=== PATIENT | female | born 1975 ===

== ENCOUNTER 2021-03-12 13:02 | Outpatient (REF) | payer OTHER, SELFPAY ==
--- NOTE | ~2021-03-12 | MM_ITS ---
EXAMINATION: MM SCREENING DIGITAL BREAST TOMOSYNTHESIS, BILATERAL CLINICAL INFORMATION: Screening. Asymptomatic. The lifetime risk of breast cancer based on the Tyrer-Cuzick Model is 8.4%. COMPARISON: Mammography: April 24, 2019 and studies dating back to January 13, 2017 TECHNIQUE: Digital breast tomosynthesis is performed in both the craniocaudal and mediolateral oblique views along with computer-aided detection (CAD). Synthesized 2D images are generated from the tomosynthesis. FINDINGS: The breasts are almost entirely fatty (ACR BI-RADS breast composition Category a). There are no significant masses, abnormal calcifications, or other abnormalities. MM/MM tomosynthesis screening BI IMPRESSION: There are no significant changes from prior study. ASSESSMENT: BI-RADS 1: Negative RECOMMENDATION: Routine annual mammography screening. This patient's information was entered into a reminder system with a target due date for their next mammogram.
== END 2021-03-12 13:03 | disposition home or self-care (01) ==
LOC: HO.MAMMO 13:02
PROVIDERS: Visit Provider Internal Medicine
DX: Z12.31 Encounter for screening mammogram for malignant neoplasm of breast (principal)
CPT/HCPCS: 77063; 77067

== ENCOUNTER → 2021-06-02 16:28 | Outpatient (BNVA) | payer OTHER, SELFPAY | PROVIDERS: PCP Internal Medicine; Referring Provider Internal Medicine; Visit Provider Physician Assistant Surgical ==

== ENCOUNTER → 2021-06-04 16:10 | Outpatient (BNVA) | payer OTHER, SELFPAY | PROVIDERS: PCP Internal Medicine; Visit Provider Surgery ==

== ENCOUNTER → 2021-06-17 07:41 | Outpatient (BNVA) | payer OTHER, SELFPAY | PROVIDERS: PCP Internal Medicine; Visit Provider Surgery ==

== ENCOUNTER → 2021-06-18 07:08 | Outpatient (BNVA) | payer OTHER, SELFPAY | PROVIDERS: PCP Internal Medicine; Visit Provider Surgery ==

== ENCOUNTER 2021-06-22 07:35 | Outpatient (REF) | payer OTHER, SELFPAY ==
--- NOTE | ~2021-06-22 | XR_ITS ---
EXAMINATION: XR CHEST CLINICAL INFORMATION: Obesity. COMPARISON: Most recent chest radiograph dated 05/19/2016. TECHNIQUE: 2 views of the chest were obtained. FINDINGS: The lungs are clear. The cardiomediastinal silhouette is normal in size. There is no pleural effusion or pneumothorax. No acute osseous abnormality. XR/XR chest 2V IMPRESSION: No acute cardiopulmonary findings.
--- NOTE | 2021-06-22 07:42 | ECG_ITS ---
Test Reason : e66.01 Blood Pressure : / mmHG Vent. Rate : 074 BPM Atrial Rate : 074 BPM P-R Int : 162 ms QRS Dur : 074 ms QT Int : 380 ms P-R-T Axes : 032 -06 018 degrees QTc Int : 421 ms Normal sinus rhythm Low voltage QRS Cannot rule out Anterior infarct (cited on or before 11-JAN-2015) Abnormal ECG When compared with ECG of 15-FEB-2018 17:42, Questionable change in initial forces of Lateral leads Referred By: Hipolito Valdez Electronically Signed By:JUSTIN KIMBLE
[2021-06-22 08:06] LABS: MANUAL DIFF FLAG NO
[2021-06-22 08:13] LABS: Basophils Percent Auto 0.3 % (0-2); Eosinophils Absolute Auto 0.1 X10*3/uL (0.0-0.4); Eosinophils Percent Auto 2.9 % (0-4); Hematocrit 37.3 % (37-47); Hemoglobin 12.5 g/dl (12.0-16.0); Imm Gran Abs Auto 0.01 X10*3/uL (0.00-0.03); Imm Gran Pct Auto 0.3 % (0.0-0.4); Lymphocytes Absolute Auto 1.5 X10*3/uL (1.2-4.9); Lymphocytes Percent Auto 39.2 % (20-40); Mean Corpuscular HGB Conc 33.5 g/dl (31.0-35.0); Mean Corpuscular Hemoglobin 29.6 pg (27.0-33.0); Mean Corpuscular Volume 88.2 fL (80-98); Mean Platelet Volume 9.3 fL (9.4-12.3); Monocytes Absolute Auto 0.4 X10*3/uL (0.1-1.2); Monocytes Percent Auto 9.1 % (2-11); Neutrophils Absolute Auto 1.9 X10*3/uL (2.0-8.3); Neutrophils Percent Auto 48.2 % (45-73); Platelet Count 294 X10*3/uL (160-400); Red Blood Count 4.23 X10*6/uL (4.20-5.50); Red Cell Distribution Width 12.9 % (11.0-16.0); White Blood Count 3.8 X10*3/uL (4.8-10.8)
[2021-06-22 08:27] LABS: Estimated Average Glucose 117 mg/dL; Hemoglobin A1c % 5.7 %
[2021-06-22 08:43] LABS: Alanine Aminotransferase 21 U/L (0-31); Albumin Level 3.9 g/dL (3.5-5.0); Alkaline Phosphatase 104 U/L (39-117); Anion Gap 13 (12-20); Aspartate Amino Transferase 19 U/L (5-31); Bilirubin Total 0.4 mg/dL (0.0-1.0); Blood Urea Nitrogen 10 mg/dL (9-16); C Reactive Protein 0.81 mg/dL (< or = 0.50); Calcium 8.8 mg/dL (8.4-10.2); Carbon Dioxide 25 mmol/L (22-29); Chloride 106 mmol/L (96-108); Cholesterol 125 mg/dL; Estimated Glomerular Filt Rate > 60; Glucose Random 107 mg/dL (60-115); HDL Cholesterol 25 mg/dL; Iron 75 mcg/dL (30-160); LDL Cholesterol Calculated 91 mg/dl; Percent Iron Saturation 30 % (15-50); Potassium 4.4 mmol/L (3.3-5.1); Sodium 140 mmol/L (135-145); Total Iron Binding Capacity 250 mcg/dL (228-428); Total Protein 6.7 g/dL (6.5-8.0); Triglycerides 49 mg/dL; Unsaturated Iron Binding 175 ug/dL
[2021-06-22 09:08] LABS: TSH reflex Free T4 1.16 uIU/mL (0.32-4.0); Vitamin D 25-OH Total 26.8 ng/mL (>30)
[2021-06-22 09:11] LABS: Folate 17.3 ng/mL (> or = 4.0); Vitamin B12 618 pg/mL (200-900)
[2021-06-22 10:23] LABS: Ferritin 139 ng/mL (10-250)
[2021-06-23 10:21] LABS: Calcium (PTHI) 8.7 mg/dL (8.6-10.2); PTHI 32 pg/mL (14-64)
[2021-06-23 11:03] LABS: H Pylori Breath Test Positive (Negative)
[2021-06-25 07:41] LABS: Zinc 81 mcg/dL (60-130)
[2021-06-26 13:10] LABS: Vitamin B1 12 nmol/L (8-30)
[2021-06-28 01:12] LABS: Vitamin A 34 mcg/dL (38-98)
== END 2021-06-22 07:36 | disposition home or self-care (01) ==
LOC: HO.LAB 07:35
PROVIDERS: PCP Internal Medicine; Visit Provider Surgery
DX: Z01.818 Encounter for other preprocedural examination (principal); E66.01 Morbid (severe) obesity due to excess calories
CPT/HCPCS: 36415; 71046; 80053; 80061; 82306; 82607; 82728; 82746; 83013; 83036; 83540; 83970; 84425; 84443; 84590; 84630; 85025; 86140; 93005

== ENCOUNTER → 2021-07-22 08:03 | Outpatient (BNVA) | payer OTHER, SELFPAY | PROVIDERS: PCP Internal Medicine; Visit Provider Dietitian, Registered | DX: E66.9 Obesity, unspecified (principal) | CPT/HCPCS: 97802 ==

== ENCOUNTER → 2021-07-23 08:05 | Outpatient (BNVA) | payer OTHER, SELFPAY | PROVIDERS: PCP Internal Medicine; Visit Provider Surgery ==

== ENCOUNTER 2021-08-02 08:00 | Outpatient (REF) | payer OTHER, SELFPAY ==
--- NOTE | ~2021-08-02 | US_ITS ---
EXAMINATION: US COMPLETE ABDOMEN WITH LIVER ELASTOGRAPHY CLINICAL INFORMATION: Obesity COMPARISON: None. TECHNIQUE: Real-time imaging of the abdominal viscera. Noninvasive ultrasound liver fibrosis assessment is performed using Chirag ElastPQ point quantification shear wave elastography (pSWE) with a C5-2 MHz transducer. Multiple elastography samples are obtained. FINDINGS: PANCREAS: Normal. The visualized pancreatic head and body are normal in appearance. The remainder of the pancreas is obscured from visualization by the overlying bowel gas. ABDOMINAL AORTA: The proximal, middle, and distal aortic segments are normal in caliber. INFERIOR VENA CAVA: Visualized portions are normal. LIVER: Liver echotexture is slightly increased. The liver demonstrates normal size and contour. No focal lesion or intrahepatic biliary duct dilatation. The right lobe measures 17 cm in length. The left lobe measures 11 cm in length. Portal flow is normal/hepatopedal Shear wave liver elastography median stiffness is 1.8 m/s (reference: normal median stiffness is 1.3 m/s or less). IQR/median stiffness to assess sampling precision is 0.15 (reference: good quality data set is IQR/median stiffness of 0.15 or less). GALLBLADDER: Normal. The gallbladder is physiologically distended without evidence of stones, sludge, polyps, wall thickening or pericholecystic fluid. COMMON BILE DUCT: Normal in caliber measuring 0.2 cm in diameter. RIGHT KIDNEY: Normal. No hydronephrosis. No renal calculi or focal parenchymal lesions. The kidney measures 10 cm in maximum dimension. LEFT KIDNEY: Normal. No hydronephrosis. No renal calculi or focal parenchymal lesions. The kidney measures 11 cm in maximum dimension. SPLEEN: Normal. The spleen measures 10 cm in maximum dimension. FREE FLUID: None. US/US abdomen comp w elastography IMPRESSION: 1. Impression: Echogenic liver probably representing fatty infiltration. 2. Liver elastography: Adequate liver sampling. Slightly elevated stiffness suggestive of compensated advanced chronic liver disease but need further test for confirmation. REFERENCE: Society of Radiologists in Ultrasound Liver Stiffness Thresholds (2020): LIVER STIFFNESS THRESHOLDS: *Liver Stiffness equal or less than 1.3 m/s: High probability of being normal. *Liver Stiffness less than 1.7 m/s: In the absence of other known clinical signs, rules out compensated advanced chronic liver disease. *Liver Stiffness 1.7-2.1 m/s: Suggestive of compensated advanced chronic liver disease but need further test for confirmation. *Liver Stiffness over 2.1 m/s: Rules in compensated advanced chronic liver disease. *Liver Stiffness over 2.4 m/s: Suggestive of clinically significant portal hypertension. QUALITY OF DATA SET: *IQR/Median value equal or less than 0.15 implies a quality data set. *IQR/Median value over 0.15 implies a poor quality data set. SIGNIFICANT CHANGE FROM PRIOR EXAM: Significant change if liver stiffness measurement is 10% or greater from prior exam. OTHER CONSIDERATIONS: The stage of liver fibrosis may be overestimated in the setting of acute hepatitis, liver inflammation, elevated liver function tests, hepatic vascular congestion, obstructive cholestasis, non-fasting state, and infiltrative diseases such as amyloidosis and lymphoma. In some patients with NAFLD, the liver stiffness thresholds for compensated advanced chronic liver disease may be lower. In causes other than viral hepatitis and NAFLD, liver stiffness thresholds are not well established.
--- NOTE | ~2021-08-02 | FL_ITS ---
EXAMINATION: XR GI SERIES CLINICAL INFORMATION: Morbid/severe obesity due to excess calories. COMPARISON: None. TECHNIQUE: Routine upper GI air-contrast series was performed in upright and lying positions. FINDINGS: Following oral administration of thick barium and effervescent granules, there is normal propagation of bolus from the oral cavity through the pharynx and esophagus and into the stomach without any evidence of obstruction, narrowing or stricture. The course, caliber and peristalsis of the stomach and the duodenum are normal. The mucosal pattern of the esophagus, stomach and the duodenum is normal. FLUOROSCOPY TIME: 1.8 minutes. DOSE AREA PRODUCT: 32.123 uGy-m2 (microgray-meter squared). FL/FL upper GI series IMPRESSION: Unremarkable upper GI air-contrast study.
--- NOTE | 2021-08-02 08:17 | CA_ITS ---
Acquisition Time: 2021-08-02 08:35:43 Total Exercise Time: 00:06:17 Test Indications: PREOP, ABN EKG Medications: SEE CHART Protocol: MAX Max HR: 160 BPM 90% of Pred: 176 BPM Max BP: 140/070 mmHG Max Work Load: 7.4 METS Exercise stress test with exercise 6 min 17 sec of Max protocol, without anginal symptoms, without arrythmia, with normotensive response to exercise, without EKG changes meeting criteria for ischemia. Test reviewed with Dr Rizvi. Referred By: Hipolito Valdez Overread By: MARY URRUTIA
--- NOTE | 2021-08-02 08:17 | CA_ITS ---
Transthoracic Echocardiogram Patient (Last, First, Middle): Brooks Hanson, Gender: Female Date of : 1975 Age: 45 Procedure Date: 08/02/2021 Procedure Type: Transthoracic Echocardiogram Location: OP Height: 165.1 cm Weight: 100.7 kg BSA: 2.07 m2 Heart Rate: bpm BP: 128 / 70 mmHg Tax Assistant: Referring MD: Hipolito Valdez MD Symptoms: R94.31 - Abnormal electrocardiogram [ECG] [EKG] PRE OP Study Quality: Good ECG Rhythm: Sinus Conclusions: - The left ventricular systolic function is normal. The visually estimated ejection fraction is between 60-65%. - No obvious valvular pathology seen on this study. Findings Left Ventricle Normal left ventricular cavity size. There is mildly increased left ventricular wall thickness. The left ventricular systolic function is normal. The visually estimated ejection fraction is between 60-65%. There is no evidence of regional wall motion abnormalities. Diastolic function is normal for age. Right Ventricle Normal right ventricular cavity size and systolic function. Atria Both atria are normal in size. Aortic Valve There is a normal trileaflet aortic valve. There is no aortic valve stenosis. There is no aortic valve regurgitation. Mitral Valve The mitral valve appears normal. There is trace mitral valve regurgitation. There is no mitral valve stenosis. Pulmonic Valve The pulmonic valve was not well visualized. There is trace pulmonic valve regurgitation. Tricuspid Valve Normal tricuspid valve structure. There is trace tricuspid valve regurgitation. The pulmonary artery systolic pressure is normal. Great Vessels The aortic annulus, sinuses of valsalva, and asc aorta are normal in size. Venous The inferior vena cava is normal in size and collapses greater than 50% with inspiration. Pericardium/Pleural There is no evidence of pericardial effusion. Prior Study Comparison No prior study available for comparison. Recommendations, Care & Conclusions No obvious valvular pathology seen on this study. Measurements 2D Linear Measurements IVSd: 1.15 0.6-0.9/0.6-1.0 cm LVIDd: 4.41 3.9-5.3/4.2-5.9 cm LVIDd Index: 2.13 2.4-3.2/2.2-3.1 cm/m2 LVIDs: 2.78 2.0-3.6 cm LVPWd: 1.12 0.7-1.1 cm Ao Root: 2.50 2.1-3.5 cm LA Diam: 3.40 2.7-3.8/3.0-4.0 cm LAIDs Index: 1.64 1.5-2.3 cm/m2 LV Mass: 220.80 67-162/88-224 g LV Mass Index: 106.67 43-95/49-115 g/m2 LVOT Diam: 2.00 3.0+(-)1.3 cm Mitral Valve MV Pk E: 0.62 MV PK A: 0.54 MV Decel Time: 202.00 E/A: 1.10 E'Lateral: 13.80 E'Medial: 9.25 E/E' Med: 6.70 E/E' Lat: 4.50 PHT: 59.00 MVA PHT: 3.73 Decel [place]: 3.06 Aortic Valve AoV Pk Miles: 1.35 AoV Mn Miles: 1.00 AoV VTI: 0.30 AoV Pk Grad: 7.00 Aov Mn Grad: 4.00 STEFFI Cont.VTI: 2.45 LVOT LVOT Pk Miles: 1.07 LVOT Mn Miles: 0.68 LVOT VTI: 0.24 LVOT Pk Grad: 5.00 LVOT Mn Grad: 2.00 LVOT Diam: 2.00 LVOT Area: 3.14 Diastolic Function MV Pk E: 0.62 MV Pk A: 0.54 E/A: 1.10 E'Medial: 9.25 E/E' Med: 6.70 E' Laterial: 13.80 E/E' Lat: 4.50 Right Ventricle TAPSE (mm): 19.00 TVS' Miles: 9.00 Tricuspid Valve RA Press: 8.00 Great Vessels Aorta Ao Root-2D: 2.50 2.0-3.7 cm Ao Asc: 2.60 2.1-3.4 cm Ao Arch: 2.60 Pulmonary Valve PV Pk Miles: 1.20 Peak PV Grad: 6.00 Updated in Other Vendor System with Status of Final Fortino Rizvi MD electronically signed on 08/02/2021 12:53:55 PM with status of Final
== END 2021-08-02 08:01 | disposition home or self-care (01) ==
LOC: HO.US 08:00
PROVIDERS: PCP Internal Medicine; Visit Provider Surgery
DX: Z01.818 Encounter for other preprocedural examination (principal); E66.01 Morbid (severe) obesity due to excess calories; R06.02 Shortness of breath; I10 Essential (primary) hypertension; R94.31 Abnormal electrocardiogram [ECG] [EKG]
CPT/HCPCS: 74240; 76705; 76981; 93017; 93306

== ENCOUNTER 2021-08-03 16:56 | Outpatient (REF) | payer OTHER, SELFPAY ==
[2021-08-04 12:21] LABS: H Pylori Breath Test Negative (Negative)
== END 2021-08-03 16:57 | disposition home or self-care (01) ==
LOC: HO.LNP 16:56
PROVIDERS: Visit Provider Physician Assistant Surgical
DX: Z01.818 Encounter for other preprocedural examination (principal)
CPT/HCPCS: 83013

== ENCOUNTER → 2021-08-20 07:26 | Outpatient (BNVA) | payer OTHER, SELFPAY | PROVIDERS: PCP Internal Medicine; Visit Provider Surgery ==

== ENCOUNTER 2021-09-06 17:02 | Outpatient (REF) | payer OTHER, SELFPAY ==
[2021-09-06 17:16] LABS: MANUAL DIFF FLAG NO
[2021-09-06 17:49] LABS: Basophils Percent Auto 0.2 % (0-2); Hematocrit 38.7 % (37.0-47.0); Hemoglobin 12.7 g/dl (12.0-16.0); Lymphocytes Absolute Auto 1.9 X10*3/uL (1.2-4.9); Lymphocytes Percent Auto 45.5 % (20-40); Mean Corpuscular HGB Conc 32.8 g/dl (31.0-35.0); Mean Corpuscular Volume 91.5 fL (80.0-98.0); Mean Platelet Volume 9.9 fL (9.4-12.3); Monocytes Absolute Auto 0.4 X10*3/uL (0.1-1.2); Monocytes Percent Auto 9.8 % (2-11); Neutrophils Absolute Auto 1.8 x10*3/uL (2.0-8.3); Neutrophils Percent Auto 43.5 % (45-73); Platelet Count 283 X10*3/uL (160-400); Red Blood Count 4.23 X10*6/uL (4.20-5.50); Red Cell Distribution Width 13.3 % (11.0-16.0); White Blood Count 4.1 X10*3/uL (4.8-10.8)
== END 2021-09-06 17:03 | disposition home or self-care (01) ==
LOC: HO.LAB 17:02
PROVIDERS: PCP Internal Medicine; Visit Provider Internal Medicine
DX: D72.819 Decreased white blood cell count, unspecified (principal)
CPT/HCPCS: 36415; 85025

== ENCOUNTER → 2021-09-14 07:41 | Outpatient (BNVA) | payer OTHER, SELFPAY | PROVIDERS: PCP Internal Medicine; Visit Provider Surgery ==

== ENCOUNTER → 2021-09-30 08:15 | Outpatient (BNVA) | payer OTHER, SELFPAY | PROVIDERS: PCP Internal Medicine; Visit Provider Surgery | DX: E66.9 Obesity, unspecified (principal); Z68.35 Body mass index [BMI] 35.0-35.9, adult ==

== ENCOUNTER → 2021-10-27 08:15 | Outpatient (BNVA) | payer OTHER, SELFPAY | PROVIDERS: PCP Internal Medicine; Visit Provider Surgery ==

== ENCOUNTER 2022-01-20 22:10 | Emergency (ER) | payer OTHER, SELFPAY ==
[2022-01-20 23:19] VITALS: BP 130/61; PULSE 86; RESP 18; TEMP 36.4; O2SAT 96; BMI 34.9
--- NOTE | 2022-01-20 23:46 | ED_ITS ---
HPI - Extremity Problem General Chief complaint: Extremity Problem Stated complaint: shoulder pain Time Seen by Provider: 01/20/22 23:31 Source: patient Mode of arrival: ambulatory Limitations: no limitations History of Present Illness HPI Narrative: 46-year-old female who presents emergency department for evaluation of pain in her left neck, left shoulder and left arm. The patient states that she has been having pain on the left side of her body times 3-4 months. She states that this pain is intermittent and can be located in different parts of her body. She states that over the past 2 days she has developed pain in her left neck left shoulder left arm. She describes this is a constant throbbing/pressure-like pain which is 8/10 at its worst. Pain is worse with movement. She denies any numbness or weakness in her extremities. She denies any injury. She states she has taken occasional ibuprofen with no relief for pain. She has been using lidocaine patches with no relief for pain. She denied fever, chills, sore throat, cough, chest pain, shortness of breath, nausea, vomiting, diarrhea. Related Data Previous Rx's Medication Instructions Recorded cyclobenzaprine 10 mg tablet 10 mg PO TID PRN #20 tab 01/20/22 naproxen 500 mg tablet (Naprosyn) 500 mg PO BID PRN #20 tab 01/20/22 Allergies Allergy/AdvReac Type Severity Reaction Status Date / Time No Known Allergies Allergy Verified 08/23/21 17:49 Review of Systems Review of Systems: Yes all other systems are reviewed and are negative PMFSH Past Medical History [facility] Narrative: Social history: The patient denies tobacco, alcohol and drug use. Medical History Back pain Leukopenia Morbid obesity Skin lesion Surgical History Hx of section Family History Family History Mother Asthma Father No problems noted. Sister No problems noted. Sister No problems noted. Brother No problems noted. Brother No problems noted. Son No problems noted. Daughter No problems noted. Social History Social History Housing: House Alcohol intake: current Alcohol intake frequency: holidays/special occasions only Alcohol type: hard liquor Patient Tobacco Use Status: Never used Tobacco e-Cigarette/Vaping Use: Never Used Second Hand Smoke Exposure: No Advance Directives: No Patient : No service: No Current occupational status: employed Current occupational exposures/hazards: No Physical Exam Vital Signs: Vital Signs: Last Vital Signs Temp 97.5 F 01/20/22 23:19 Pulse 86 01/20/22 23:19 Resp 18 01/20/22 23:19 BP 130/61 01/20/22 23:19 Pulse Ox 96 01/20/22 23:19 BMI result Body Mass Index 34.9 Const: General: cooperative and no acute distress Orientat ion/consciousness: oriented to person and oriented to place Limitations: no limitations HEENT: Head: Yes normal to inspection, Yes normocephalic and Yes atraumatic Ears: external ears normal General nose exam: Normal external nose present Face and sinus: Yes normal facial exam Mouth: Normal oral and palatal mucosa present Throat: Yes posterior oropharynx normal Eyes: General: appearance normal, both eyes and all related structures Pupils: Equal, round and reactive pupils present Neck: Other: Tenderness and spasm of the left trapezius muscle, no C-spine tenderness Chest: Chest palpation & inspection: normal inspection of the chest and normal palpation of entire chest wall Resp: Effort & Inspection: normal respiratory effort and able to speak in complete sentences Auscultation: clear to auscultation bilaterally Cardio: Rate: regular rate Rhythm: regular rhythm Heart sounds: S1 normal heart sound present, S2 normal heart sound present and no murmurs GI: Inspection: Yes normal to inspection Palpation (GI): Soft to palpation, nontender and no guarding Auscultation: normal bowel sounds : General: Yes no CVA tenderness Back/Spine/Pelvis: Back: no CVA tenderness Skin: General skin exam: no rashes or lesions noted Neuro: General: oriented to person and oriented to place Cranial nerves: Yes CN's II-XII intact bilaterally and Yes Equal, round and reactive pupils present Cognition (Neuro): normal cognition Motor exam (neuro): 5/5 motor strength present throughout Extrem: Other: Tenderness with palpation of the left deltoid muscle with spasm this muscle, increased pain with active range of motion, no pain with passive range of motion of the right shoulder. Psych: Appearance: grossly normal Speech and movement: Normal speech and movement present Affect: normal affect Attitude: cooperative Thought process: Normal thought process present Thought content: Normal thought content present Course Course Course Narrative: 46-year-old female who presents emergency department for evaluation of left neck and left arm pain x2 days. The patient also states she has been having intermittent pain in the left side of her body for several months. Patient has no injury and her review systems were unremarkable. Exam did reveal tenderness with palpation of her left trapezius and left deltoid muscle otherwise was unremarkable. Patient's presentation is consistent with musculoskeletal pain and spasm. The patient was started on naproxen 500 mg twice a day as needed for pain and cyclobenzaprine 10 mg 3 times a day as needed for pain and spasm. She was given printed and verbal instructions discharged home. Discharge Plan Discharge Clinical Impression: Musculoskeletal pain Patient Disposition: Home, Self-Care Instructions: Musculoskeletal Pain (ED) Additional Instructions: Your exam revealed tenderness and spasm of your neck and arm muscles. Sometimes inflammation in your muscles can cause this type of pain and spasm. I want you to take the anti-inflammatory pain medicine, naproxen 500 mg twice a day as needed for pain. If your insurance does not cover this medication then you can buy the [id number] brand Aleve (naproxen) 220 mg pills and take 2 pills twice a day. Take Flexeril (cyclobenzaprine) 10 mg pills, 1 pill every 6-8 hours as needed for pain or spasm. This medication will make you sleepy. Do not drive or work while taking this medication. Follow-up with your doctor in 2 days. Please return to the emergency department if your symptoms get worse or if you develop any symptoms that are concerning to you. Prescriptions: New naproxen [Naprosyn] 500 mg tablet 500 mg PO BID PRN (Reason: pain) Qty: 20 0RF cyclobenzaprine 10 mg tablet 10 mg PO TID PRN (Reason: muscle pain or spasm) Qty: 20 0RF
[2022-01-20] MEDS: NaPROXEN 500 MG TABLET PO (23:59)
[2022-01-20] MEDS: Cyclobenzaprine HCl 10 MG TABLET PO (23:59)
== END 2022-01-21 00:08 | disposition home or self-care (01) ==
PROVIDERS: Emergency Provider Emergency Medicine Emergency Medical Services; PCP Internal Medicine
DX: M54.2 Cervicalgia (principal); M79.602 Pain in left arm; Z79.899 Other long term (current) drug therapy
CPT/HCPCS: 99283; 99284

== ENCOUNTER 2022-03-16 17:02 | Outpatient (REF) | payer OTHER, SELFPAY ==
--- NOTE | ~2022-03-16 | XR_ITS ---
EXAMINATION: XR FOOT, RIGHT CLINICAL INFORMATION: Right foot pain. COMPARISON: 03/07/2018 TECHNIQUE: AP, lateral, and oblique views of the right foot. FINDINGS: No acute fracture or dislocation of the right foot is identified. There is soft tissue swelling seen about the lateral aspect of the right 5th toe and metatarsal as well as soft tissue swelling dorsally. Joint spaces are maintained. No erosive changes are seen. No gas within the soft tissues. No radiopaque foreign body. XR/XR foot RT 2V IMPRESSION: Soft tissue swelling without underlying bony abnormality appreciated.
== END 2022-03-16 17:03 | disposition home or self-care (01) ==
LOC: HO.XRAY 17:02
PROVIDERS: PCP Internal Medicine; Visit Provider Internal Medicine
DX: M79.671 Pain in right foot (principal)
CPT/HCPCS: 73620

== ENCOUNTER 2022-04-08 13:47 | Outpatient (REF) | payer OTHER, SELFPAY ==
--- NOTE | ~2022-04-08 | MM_ITS ---
EXAMINATION: MM SCREENING DIGITAL BREAST TOMOSYNTHESIS, BILATERAL CLINICAL INFORMATION: Screening. Asymptomatic. The lifetime risk of breast cancer based on the Tyrer-Cuzick Model is 8%. COMPARISON: Mammography: 03/12/2021, 04/24/2019, 03/29/2018 TECHNIQUE: Digital breast tomosynthesis is performed in both the craniocaudal and mediolateral oblique views along with computer-aided detection (CAD). Synthesized 2D images are generated from the tomosynthesis. FINDINGS: The breasts are almost entirely fatty (ACR BI-RADS breast composition Category a). There are no significant masses, abnormal calcifications, or other abnormalities. Background stromal markings are similar to prior exams. No developing density. The axilla are unremarkable. MM/MM tomosynthesis screening BI IMPRESSION: No mammographic evidence of malignancy. ASSESSMENT: BI-RADS 1: Negative RECOMMENDATION: Routine annual mammography screening. This patient's information was entered into a reminder system with a target due date for their next mammogram.
== END 2022-04-08 13:48 | disposition home or self-care (01) ==
LOC: HO.MAMMO 13:47
PROVIDERS: Visit Provider Internal Medicine
DX: Z12.31 Encounter for screening mammogram for malignant neoplasm of breast (principal)
CPT/HCPCS: 77063; 77067

== ENCOUNTER 2022-05-11 07:43 | Inpatient (IN) | payer OTHER, SELFPAY ==
[2022-04-26 11:00] VITALS: BMI 36.1
[2022-04-29 09:31] LABS: MANUAL DIFF FLAG NO
[2022-04-29 10:16] LABS: Basophils Percent Auto 0.3 % (0-2); Eosinophils Absolute Auto 0.1 X10*3/uL (0.0-0.4); Eosinophils Percent Auto 2.9 % (0-4); Hematocrit 39.8 % (37.0-47.0); Hemoglobin 13.5 g/dl (12.0-16.0); Lymphocytes Absolute Auto 1.5 X10*3/uL (1.2-4.9); Lymphocytes Percent Auto 48.7 % (20-40); Mean Corpuscular HGB Conc 33.9 g/dl (31.0-35.0); Mean Corpuscular Hemoglobin 29.8 pg (27.0-33.0); Mean Corpuscular Volume 87.9 fL (80.0-98.0); Mean Platelet Volume 9.6 fL (9.4-12.3); Monocytes Absolute Auto 0.3 X10*3/uL (0.1-1.2); Monocytes Percent Auto 8.1 % (2-11); Neutrophils Absolute Auto 1.2 x10*3/uL (2.0-8.3); Platelet Count 291 X10*3/uL (160-400); Red Blood Count 4.53 X10*6/uL (4.20-5.50); Red Cell Distribution Width 12.7 % (11.0-16.0); White Blood Count 3.1 X10*3/uL (4.8-10.8)
[2022-04-29 10:30] LABS: Alanine Aminotransferase 14 U/L (0-31); Albumin Level 4.1 g/dL (3.5-5.0); Alkaline Phosphatase 101 U/L (39-117); Anion Gap 14 (12-20); Aspartate Amino Transferase 17 U/L (5-31); Bilirubin Total 0.3 mg/dL (0.0-1.0); Blood Urea Nitrogen 15 mg/dL (9-16); C Reactive Protein 0.91 mg/dL (< or = 0.50); Calcium 8.7 mg/dL (8.4-10.2); Carbon Dioxide 25 mmol/L (22-29); Chloride 105 mmol/L (96-108); Cholesterol 152 mg/dL; Estimated Average Glucose 114 mg/dL; Estimated Glomerular Filt Rate > 60; Glucose Random 91 mg/dL (60-115); HDL Cholesterol 30 mg/dL; Hemoglobin A1C 172.1999 umol/L; Hemoglobin A1c % 5.6 %; LDL Cholesterol Calculated 112 mg/dl; Potassium 4.3 mmol/L (3.3-5.1); Sodium 140 mmol/L (135-145); Total Protein 7.1 g/dL (6.5-8.0); Triglycerides 51 mg/dL
[2022-04-29 10:56] LABS: TSH reflex Free T4 0.45 uIU/mL (0.32-4.0)
--- NOTE | 2022-05-07 14:46 | MHC.SHP ---
Pre-Procedural Eval Section A Date of Service: 05/07/22 The patient is an INPATIENT: Yes The History & Physical has been completed within 30 days and I have reviewed it.: Yes Section B Chief Complaint: obesity Relevant Family History (Specify if Yes): No Relevant Social History: None Present Medications: None Medical History: No relevant PMH History of Previous Operations: No relevant previous surgery Allergies: Allergies Allergy/AdvReac Type Severity Reaction Status Date / Time No Known Allergies Allergy Verified 04/26/22 10:59 Review of Systems Sugical H&P ROS: Negative: Constitution, Cardiovascular, Respiratory, Neurological, Psychiatric, Hem-Onc, Allergic/Immunologic, Gastrointestinal, Genitourinary, Musculoskeletal, Integumentary, Endocrine and Eyes/Ears/Nose/Throat Exam Surgical H&P Exam: Normal: HEENT, Normal: Heart, Normal: Lungs, Normal: Extremities, Normal: Abdomen, Normal: Skin and Normal: Neurological Plan Diagnosis/Plan: Unchanged I have reviewed the history and physical and performed a pertinent physical examination on my patient. No changes have occurred unless specified.
[2022-05-10 13:27] LABS: COVID-19 Test Negative (Negative); IDNOW Serial# 16C4AD1C
[2022-05-11] VITALS (17 sets, daily range): BP systolic 119–166; BP diastolic 74–93; PULSE 62–93; RESP 14–18; TEMP 36.1–36.8; O2SAT 96–100
[2022-05-11 08:43] LABS: UPreg QC Valid YES; Urine Pregnancy NEGATIVE (NEGATIVE)
[2022-05-11] MEDS: Lactated Ringers 1,000 ML 50 ML IVCONT (08:55)
[2022-05-11] MEDS: Lactated Ringers 1,000 ML 999 ML IV (08:55)
--- NOTE | 2022-05-11 09:24 | P.CONAN_ITS ---
HPI - Anesthesia Eval Consult details Narrative: 46 yo female patient for EGD, Laparoscopic sleeve gastrectomy, possible diaphragmatic hernia repair, possible ventral hernia repair, possible open PMFSH Active Problems Active Problems: All Active Problems (Updated 04/26/22 @ 16:58 by MILTON Argueta) Pre-op evaluation (Acute) Helicobacter pylori antibody positive (Acute) Abnormal EKG (Acute) Mild single current episode of major depressive disorder (Acute) Vitamin A deficiency (Acute) GERD (gastroesophageal reflux disease) (Acute) Obesity (Acute) BMI 36.0-36.9,adult (Acute) BMI 35.0-35.9,adult (Acute) BMI 34.0-34.9,adult (Acute) Right foot pain (Acute) Candidal intertrigo (Acute) Class 2 obesity with body mass index (BMI) of 37.0 to 37.9 in adult (Acute) Skin lesion (Acute) Leukopenia (Acute) Back pain (Acute) Morbid obesity (Acute) Denies DENISE Past Medical History Medical History Back pain Morbid obesity Skin lesion Family History Family History Mother Asthma Father No problems noted. Sister No problems noted. Sister No problems noted. Brother No problems noted. Brother No problems noted. Son No problems noted. Daughter No problems noted. Family history of problems with anesthesia: No Surgical History Surgical History (Updated 05/11/22 @ 09:54 by Maris Titus MD) Hx of section History of Problems with Anesthesia: No Social History Social History (Updated 05/11/22 @ 09:42 by Maris Titus MD) Housing: House Are you a primary acute care nurse practitioner to a significant other at home: No Do you presently have visiting nurse or other home services: No Alcohol intake: current Alcohol intake frequency: a few times a month Alcohol type: hard liquor Patient Tobacco Use Status: Never used Tobacco e-Cigarette/Vaping Use: Never Used Second Hand Smoke Exposure: No Use of substances other than those prescribed or required for medical reasons: No Have you been hit, kicked, punched, or otherwise hurt by someone within the past year? If so, by whom?: No Are you DNR?: No Advance Directives: No Advance Directives Information Provided: No Advance Directives on File: No Recently lost weight without trying: No How much weight loss: 14-23 pounds Eating poorly because of decreased appetite: No Nutrition screen score: 2 Nutrition Risks: No Nutritional Risk Patient : No : No service: No Current occupational status: employed Current occupational exposures/hazards: No Cognitive needs: No Hearing needs: No Vision needs: No Meds Allergies Allergy/AdvReac Type Severity Reaction Status Date / Time No Known Allergies Allergy Verified 04/26/22 10:59 Active Medications: Current Medications Lactated Ringer's (Lr) 1,000 mls @ 999 mls/hr IV .Q1H1M [facility] Stop: 05/11/22 09:45 Last Admin: 05/11/22 08:55 Dose: 999 mls/hr Lactated Ringer's (Lr) 1,000 mls @ 50 mls/hr IVCONT .Q20H [facility] Last Admin: 05/11/22 08:55 Dose: 50 mls/hr Exam Exam Date and Time: May 11, 2022 0924 Height,Weight and Vital Signs: Height 5 ft 5 in Weight 98.43 kg Last Vital Signs Temp 97.8 F 05/11/22 08:50 Pulse 88 05/11/22 08:50 Resp 18 05/11/22 08:50 BP 119/74 05/11/22 08:50 Pulse Ox 97 05/11/22 08:50 O2 Del Method 05/11/22 08:50 Pertinent Lab Results Pertinent Lab Results: Laboratory Tests 04/29/22 04/29/22 04/29/22 09:26 09:30 09:30 WBC 3.1 L RBC 4.53 Hgb 13.5 Hct 39.8 MCV 87.9 MCH 29.8 MCHC 33.9 RDW 12.7 Plt Count 291 MPV 9.6 Immature Gran % (Auto) 0.0 Neut % (Auto) 40.0 L Lymph % (Auto) 48.7 H Logan % (Auto) 8.1 Eos % (Auto) 2.9 Baso % (Auto) 0.3 Lymph # (Auto) 1.5 Logan # (Auto) 0.3 Eos # (Auto) 0.1 Baso # (Auto) 0.0 Abs Immat Gran (auto) 0.00 Absolute Neuts (auto) 1.2 L Absolute Nucleated RBC 0.000 Nucleated RBC % (auto) 0.0 PT 12.0 INR 1.0 APTT 35.0 Sodium Potassium Chloride Carbon Dioxide Anion Gap BUN Creatinine Estim Creat Clear Calc Estimated GFR Random Glucose Estimat Average Glucose Hemoglobin A1c % Calcium Total Bilirubin AST ALT Alkaline Phosphatase C-Reactive Protein Total Protein Albumin Triglycerides Cholesterol LDL Cholesterol, Calc HDL Cholesterol TSH Urine Test COVID-19 ([facility]) COVID-[employer] Com Blood Type O Positive Antibody Screen NEGATIVE 04/29/22 04/29/22 05/10/22 09:30 09:30 13:00 WBC RBC Hgb Hct MCV MCH MCHC RDW Plt Count MPV Immature Gran % (Auto) Neut % (Auto) Lymph % (Auto) Logan % (Auto) Eos % (Auto) Baso % (Auto) Lymph # (Auto) Logan # (Auto) Eos # (Auto) Baso # (Auto) Abs Immat Gran (auto) Absolute Neuts (auto) Absolute Nucleated RBC Nucleated RBC % (auto) PT INR APTT Sodium 140 Potassium 4.3 Chloride 105 Carbon Dioxide 25 Anion Gap 14 BUN 15 Creatinine 0.75 Estim Creat Clear Calc 110.0 Estimated GFR > 60 Random Glucose 91 Estimat Average Glucose 114 Hemoglobin A1c % 5.6 Calcium 8.7 Total Bilirubin 0.3 AST 17 ALT 14 Alkaline Phosphatase 101 C-Reactive Protein 0.91 H Total Protein 7.1 Albumin 4.1 Triglycerides 51 Cholesterol 152 D LDL Cholesterol, Calc 112 HDL Cholesterol 30 TSH 0.45 Urine Test COVID-19 ([facility]) Negative [employer] See Note Blood Type Antibody Screen 05/11/22 08:04 WBC RBC Hgb Hct MCV MCH MCHC RDW Plt Count MPV Immature Gran % (Auto) Neut % (Auto) Lymph % (Auto) Logan % (Auto) Eos % (Auto) Baso % (Auto) Lymph # (Auto) Logan # (Auto) Eos # (Auto) Baso # (Auto) Abs Immat Gran (auto) Absolute Neuts (auto) Absolute Nucleated RBC Nucleated RBC % (auto) PT INR APTT Sodium Potassium Chloride Carbon Dioxide Anion Gap BUN Creatinine Estim Creat Clear Calc Estimated GFR Random Glucose Estimat Average Glucose Hemoglobin A1c % Calcium Total Bilirubin AST ALT Alkaline Phosphatase C-Reactive Protein Total Protein Albumin Triglycerides Cholesterol LDL Cholesterol, Calc HDL Cholesterol TSH Urine Test NEGATIVE COVID-19 ([facility]) COVID-19 Clin Com Blood Type Antibody Screen Airway Mallampati Class: II TM Dist: >3cm Neck ROM: Full Loose/Missing/Broken Teeth: Yes (Missing 1 bottom left. No broken or loose teeth ) Heart: RRR Lungs: CTAB Assessment and Plan Assessment Anesthesia Assessment: Anesthesia Plan Discussed and Chart Reviewed Final Anesthetic Review Family History of Problems with Anesthesia: No History of Problems with Anesthesia: No NPO: Yes ASA Class: III Final Preanesthetic Review: No Changes in Pt Med Stat, Meds/Allgs Chart Reviewed, Consent Obtained/Reviewed and Anes Risks/Benef Reviewed Patient Risk: Intermediate Procedure Risk: Intermediate Assessment/Block/Sedation in SS: Assess/Block/Sedation-SS Anesthetic Plan Anesthetic Plan: GA Disposition: Standard PACU and Inp. Admit - Standard Bed
--- NOTE | 2022-05-11 10:34 | PM.PNGS ---
Subjective Subjective Date of Service: 05/12/22 Interval history: Patient has mild incisional pain, but was able to ambulate and use the incentive spirometer. She is tolerating phase 1 bariatric diet Physical Exam Vital Signs: Vital Signs: Last Vital Signs Temp 97.8 F 05/11/22 08:50 Pulse 88 05/11/22 08:50 Resp 18 05/11/22 08:50 BP 119/74 05/11/22 08:50 Pulse Ox 97 05/11/22 08:50 O2 Del Method 05/11/22 08:50 BMI result Body Mass Index 36.1 GI: Inspection: Yes normal to inspection, Yes incision (dry, clean and intact) and Yes obesity Extrem: Right lower extremity: normal to inspection (no calf tenderness) Left lower extremity: normal to inspection (no calf tenderness) Objective Data Active Medications Fentanyl (Fentanyl Citrate/Pf 100 Mcg/2 Ml Vial) 25 mcg IVPUSH Q5M PRN; Protocol PRN Reason: Pain, Moderate (Pain Scale 4-6 Hydromorphone HCl (Hydromorphone Hcl 0.5 Mg/0.5 Ml Syringe) 0.25 mg IVPUSH Q5M PRN; Protocol PRN Reason: Pain, Severe (Pain Scale 7-10) Lactated Ringer's (Lr) 1,000 mls @ 50 mls/hr IVCONT .Q20H [facility] Last Admin: 05/11/22 08:55 Dose: 50 mls/hr Documented By: ARLET Promethazine HCl 6.25 mg/ (Sodium Chloride) 50.25 mls @ 201 mls/hr IV ONCE PRN PRN Reason: Nausea and Vomiting Ondansetron HCl (Ondansetron Hcl 4 Mg/2 Ml Vial) 4 mg IVPUSH ONCE PRN PRN Reason: Nausea and Vomiting Labs CBC & Chem 7: 05/12/22 05:17 05/12/22 05:17 Labs: Laboratory Results - last 24 hr 05/10/22 05/11/22 13:00 08:04 Urine Test NEGATIVE COVID-19 ([facility]) Negative COVID-19 Clin Com See Note Procedures Date of Service Date of Service: 05/12/22 Progress Note: A&P Assessment and plan (1) Obesity: Status: Acute Assessment and Plan: s/p laparoscopic sleeve gastrectomy, lysis of adhesions and gastropexy Doing well Check am labs. If OK, will discharge home? (2) BMI 34.0-34.9,adult: Status: Acute (3) GERD (gastroesophageal reflux disease): Status: Acute (4) LVH (left ventricular hypertrophy): Status: Acute (5) Steatosis, liver: Status: Acute (6) Liver fibrosis: Status: Acute (7) Back pain: Status: Acute (8) S/P laparoscopic sleeve gastrectomy: Status: Acute (9) Congenital intra-abdominal adhesions: Status: Acute Time Spent With Patient Time: Total time spent is greater than 50% in coordination of care (as documented) at patient's floor/unit and/or counseling patient: Quality Stroke Does the patient have a stroke diagnosis?: No VTE Prior VTE?: No VTE Risk Level:: Surgical - moderate VTE Device Contraindication: N/A - Device Ordered VTE Drug Contraindication: Treatment Not Indicated
--- NOTE | 2022-05-11 10:37 | P.BOP_ITS ---
Brief Operative Note Date of Service: 05/11/22 Pre-op diagnosis: Severe obesity with comorbidities (see below) Post-op diagnosis: same Procedure: INITIAL PATIENT BMI ON PRESENTATION AT OUR OFFICE: 40.4 kg/m2 LAST BMI BEFORE SURGERY: 34.5 kg/m2 COMORBIDITIES: liver fibrosis, liver steatosis, back pain, LVH ?The patient presented to the Weight Management Program with significant obesity that was negatively impacting the patient's comorbidities as listed above.? The program is a phased program with a special focus on preoperative medical weight management to promote substantial weight loss and prepare the patients for the second phase of the program: bariatric surgery. The patient participated in an intensive weekly lifestyle ?intervention and exercise program during which the patient ?has lost between the initial office visit and the last preoperative visit 22.9lbs, or 9.73% of initial actual body weight. It was deemed appropriate for the patient to now have bariatric surgery. In light of the current Covid-19 pandemic and the well documented strong association of obesity and increased risk of worse outcomes if infected with Covid-19 (REFERENCES: https://pubmed.ncbi.nlm.nih.gov/44248122/ ,? h ttps://pubmed.ncbi.nlm.nih.gov/42184766/ ), any delay in undergoing bariatric surgery may lead to the patient's worsening health condition and increased?risk of more severe Covid-19 disease if infected. In addition a recent?study from [facility] published in [facility] on 09/13/2021 ([email or web address]) found that, among patients with obesity, substantial weight loss achieved with surgery was associated with improved outcomes of COVID-19 infection. The findings suggest that obesity can be a modifiable risk factor for the severity of COVID-19 infection. In addition, the patient met the BMI-criteria for bariatric surgery based on the BMI on initial presentation. The patient should not be penalized for achieving such weight loss because ?it is not sustainable long-term without surgical intervention and it was achieved in preparation for bariatric surgery ?under my direction and based on my published research ([email or web address]).[email or web address] and? https://www.soard.org/article/[email or web address](63)35823-X/pdf ) ?that a 10% preoperative weight loss improves long-term weight loss after surgery and reduces perioperative complications.? Insurance carriers such as [facility] have endorsed my recommendations ?and have included in their policies criteria to include a 10% preoperative weight loss requirement. PROCEDURE: Esophago-gastroscopy, laparoscopic lysis of adhesions, laparoscopic sleeve gastrectomy and laparoscopic gastropexy INDICATIONS: This is a 46 year-old female who was electively scheduled for laparoscopic, possibly open sleeve gastrectomy. The risks and complications of the procedure were discussed with the patient in advance, particularly the possibility of ; pulmonary embolism; staple line leak; bleeding; GERD; cardiac, pulmonary, or renal complications; as well as long-term problems such as insufficient weight loss, vitamin deficiency, strictures, or ulcers. The patient understood all the risks, and was in agreement to proceed with surgery. DESCRIPTION OF PROCEDURE: After informed consent was obtained from the patient, the patient was given preoperative antibiotics, and was transferred to the operating room. After successful induction of general anesthesia, pneumatic compression devices were placed on both lower extremities. An upper endoscopy was performed next. The oropharynx and esophagus appeared to be within normal limits. There was no diaphragmatic hernia present consistent with the findings of the preoperative upper GI. The stomach was entered. Then after all fluid and air were suctioned and the stomach was fully decompressed, the scope was withdrawn and secured in the mid esophagus. The patient was then prepped and draped in the usual sterile manner, and abdominal access was established at the right upper quadrant with the Joselyn technique. A 12 mm blunt port was inserted, and the abdomen was insufflated with CO2 to a pressure of 15 mmHg. Under direct visualization, additional ports were placed, specifically two 5 mm Versi-step ports to the left upper quadrant, and a 5 mm Versi-Step port to the right upper quadrant. 1% lidocaine plain was used to infiltrate all port sites as well as all fascia defects. Using the EndoClose suture passer device, I placed a #1 Polysorb tie across the falciform ligament in order to retract it up against the abdominal wall and prevent injury of the ligament with our instruments during the procedure. Following that, the patient was placed in a steep reverse Trendelenburg position. An additional 5 mm port was placed to the right flank for the Mediflex retractor that was used to retract the left lobe of the liver. The gastro-esophageal fat pad was opened with the ultrasonic device (Thunderbeat, Olympus) and the anterior esophagus and hiatus were exposed. The angle of His was opened with the ultrasonic device the fundus of the stomach from any diaphragmatic and splenic attachments. I then opened the gastrocolic ligament between the transverse colon and the greater curvature of the stomach with the ultrasonic device to enter the lesser sac and facilitate the ligation of the short gastric vessels. I started at a mid-point along the greater curvature and using the Thunderbeat, all short gastric vessels were divided all the way to the angle of His until the left monica was completely dissected at its entirety. I then divided the gastro-colic ligament distally to a distance of about 3-4 cm proximal to the pylorus. There were extensive congenital adhesions between the pancreas and posterior gastric wall. Those were lysed completely with the ultrasonic device. Adhesiolysis took approximately 45 min to complete. The stomach was then divided transversely with one Endo LINO-45 purple, one LINO- 45 orange load and four LINO-60 articulating orange loads using the AEON stapler and loads. Every effort was made that the gastric sleeve had a tubular shape and an even caliber throughout. Once the sleeve resection was completed, the staple line of the gastric sleeve was reinforced with Hemoclips. The resected stomach was retrieved without difficulty from the Joselyn port. A gastropexy was then performed in order to prevent postoperative GERD and partial gastric volvulus. Several interrupted 2.0 Surgidac sutures were placed between the sleeve's staple line and the previously divided greater omentum and gastro-colic ligament using the Endo-Stitch device. ?An upper endoscopy was performed. There was no narrowing at the GE junction. The scope was easily advanced all the way to the pylorus which was clearly visualized. There was no narrowing anywhere and the sleeve's caliber was even throughout. The sleeve's staple line was inspected and there was no evidence of ischemia, bleeding or dehiscence. At that point the gastroscope was withdrawn from the patient?s mouth while we were decompressing the bowel and the stomach from any remaining air. I looked into the lesser sac to see how the sleeve was situating and it was situating well. There was no bleeding from the staple line, spleen, or short gastric vessels. The Mediflex retractor was removed, and the undersurface of the liver was inspected and there was no bleeding. The patient was placed in supine position. I closed the fascial defect of the 12 mm port site with a figure of eight #1 Polysorb suture. Then 60ml of Ropivacaine plain with 10 mg of Dexamethasone were used to infiltrate the fascial closure as well as all skin incisions. A total of 5ml of Zynrelef was applied in the Joselyn wound. At this point, the abdomen was deflated, all ports were removed under direct vision, and no bleeding was noted from any of the port sites. The skin incisions were irrigated with saline and were closed with 4-0 absorbable monofilament sutures. Steri-Strips and OpSites were used to cover all incisions. The patient was extubated and was transferred in stable condition to the recovery room for further care. I was present and performed all ortiz parts of the procedure. Mr. Kim was the first cook. There were no residents to assist with this case. Rudolph Valdez MD, PhD, FACS Surgeon: Hipolito Valdez MD Anesthesia: GETA, local and other (TAP block and 5ml Zynrelef) Was an Manager Adobe used for this Procedure?: No Manager Adobe: Orville Kim Estimated blood loss (mL): 10 IV fluids (mL): 2,500 Urine output (mL): 0 (No Powell to record) Pathology: other (Stomach) Condition: stable Disposition: PACU
[2022-05-11] MEDS: ceFAZolin Sodium/Dextrose,Iso 2 GM/50 ML PIGGYBACK IV ×2 (10:53→17:01)
--- NOTE | 2022-05-11 13:23 | P.DS_ITS ---
DS: Providers Provider Date of Service: 05/12/22 Date of admission: 05/11/22 07:43 Primary care physician: Zehra Linton MD DS: Diagnosis Discharge Diagnosis (1) Obesity: Status: Acute (2) BMI 34.0-34.9,adult: Status: Acute (3) GERD (gastroesophageal reflux disease): Status: Acute (4) LVH (left ventricular hypertrophy): Status: Acute (5) Steatosis, liver: Status: Acute (6) Liver fibrosis: Status: Acute (7) Back pain: Status: Acute DS: Summary Hospital Course Hospital Course: ADMITTING DIAGNOSIS: obesity, back pain, gerd ? DISCHARGE DIAGNOSIS: same, s/p laparoscopic sleeve gastrectomy ? PAST SURGICAL HISTORY: cesarian section ? PROCEDURE: upper endoscopy, laparoscopic sleeve gastrectomy ? DISCHARGE SUMMARY: ? History of Present Illness: ? The patient is a?46 year-old woman with a BMI of?40.4 kg/m2 and associated co- morbidities as described above. The patient had extensive work-up,lost?16.5 lbs preoperatively and was electively scheduled for laparoscopic, possible open sleeve gastrectomy and gastropexy. Risks and complications of the surgery were discussed with the patient in advance, particularly the possibility of , pulmonary embolism, anastomotic leak, bleeding, bowel injury, GERD, cardiac, renal or pulmonary complications. The patient understood all the risks and was in agreement with the surgical plan. ? Hospital Course: ? The patient underwent an uneventful laparoscopic sleeve gastrectomy with gastropexy on the day of admission. Postoperatively, the patient was transferred to the surgical floor. The patient received IV Acetaminophen and IV dilaudid for pain control. Patient was started on bariatric phase 1 diet POD #0. On postoperative day one, the patient was feeling well without nausea, vomiting, fevers, or tachycardia. The patient had some mild incisional pain and the abdomen was soft. ? On the morning of postoperative day one, the patient was continued on 1 ounce of water or ice every half hour. During the day, the patient did fairly well, having some incisional pain, but able to ambulate adequately and to tolerate liquids well. ? Since the patient is doing well, we decided that the patient was ready to be discharged. The patient was given instructions to follow-up with me next week and to call my office for any fever over 101, persistent abdominal pain, nausea, vomiting, GERD, symptoms of DVT such as calf tenderness, or leg swelling, or pulmonary embolism such as chest pain or shortness of breath. The patient was also instructed to drink 40-60 ounces of liquids per day using the 1-ounce cups. The patient had been given prescriptions for Tylenol for pain, Zofran prn for nausea, and pantoprazole and carafate previously. The patient was encouraged to ambulate and use the incentive spirometer. The patient was allowed to shower, but no baths, and encouraged to stay active at home. All of these instructions were given to the patient personally. All questions were answered and the patient understood all instructions, the instructions were also given to the patient in print. Time Spent with Patient Time attestation: Total time spent providing and/or coordinating discharge services: Discharge coordination time: Less than 30 minutes Quality: Safe Use of Opioids Does Pt have an Active Cancer Diagnosis on the Problem List?: No Quality: Stroke Does the patient have a stroke diagnosis?: No Physical Exam Vital Signs: Vital Signs: Last Vital Signs Temp 97.8 F 05/11/22 08:50 Pulse 88 05/11/22 08:50 Resp 18 05/11/22 08:50 BP 119/74 05/11/22 08:50 Pulse Ox 97 05/11/22 08:50 O2 Del Method 05/11/22 08:50 BMI result Body Mass Index 36.1 DS: Data Data Completed and Pending Pending studies at discharge: Pending at discharge 05/11/22 12:22 Surgical [PTH] Routine Labs on day of discharge: Laboratory Results - last 24 hr 05/10/22 05/11/22 13:00 08:04 Urine Test NEGATIVE COVID-19 ([facility]) Negative COVID-19 Clin Com See Note Discharge Plan Discharge Patient Disposition: Home, Self-Care Discharge Diagnosis: s/p laparoscopic sleeve gastrectomy Referrals: Zehra Dumont MD [Primary Care Provider] - 1 Week Discharge Medications: Continued pantoprazole 40 mg tablet,delayed release (DR/EC) 40 mg PO DAILY Qty: 30 3RF sucralfate 100 mg/mL suspension 10 ml PO BID Qty: 400 3RF Label Comments: PT WILL USES AFTER SURGERY ondansetron HCl 4 mg tablet 4 mg PO Q6H PRN (Reason: nausea and vomiting) Qty: 20 0RF Label Comments: PT WILL USE AFTER SURGERY Discharge Orders: Discharge Order (Routine); Ordered 05/12/22 Ordered By: Hipolito Valdez Activity on Discharge: No heavy lifting Stand Alone Forms: Patient Portal Discharge page Care Plan Goals: weight loss Health Concerns: obesity Plan of Treatment: No tub baths, sex or returning to work until discussed at first post op appointment. No exercise, alcohol, tobacco or illegal drug use. Continue to use incentive spirometer hourly while awake. Walk in home for 5- 10 minutes every 2 hours during the first week. Follow all instructions in the bariatric handbook and call with any questions.Discharge Instructions 1. Please call your doctor or come back to the emergency room should any new symptoms arise. 2. You will receive a courtesy call from [facility] 24-48 hours after discharge. 3. Activity: abstain from alcohol, practice limited stair climbing, no bending, no driving, no exercise, no illicit substances, no lifting, no sex, no tub bath, no work. 4. Diet: continue as discussed with Dr. Valdez. 5. Dressing Change/Wound Care: Your incision is covered by clear bandages and guaze underneath. If the area is tender, you may apply an ice pack for short intervals (no more than 20 minutes on, followed by at least 20 minutes off). Do not apply heat. Do not use creams, lotions, or topical antibiotics unless instructed to do so by your surgeon. These can cause infection or allergic reaction. 6. Call your doctor if: - Your temperature exceeds 101.5 F - You experience excessive pain or swelling - You have an unexpected reaction to medication - You have excessive bleeding - You experience continued vomiting/nausea - Your incision begins to separate - Your incision shows signs of infection such as increased redness, swelling, excessive pain, heat, or drainage (light blood or clear fluid is normal) 7. General instructions: No lifting greater than 5 lbs for the next 4 weeks[address] driving within 24 hours of taking narcotic pain medications. If you do not move your bowels in the next 2 days, please take milk of magnesia over the counter. Please follow the post op diet and do not advance your diet until you are seen in the office in about 2 weeks. Please walk around your home every hour or two to prevent blood clots from forming in your legs. You do not need to wake from sleeping to walk. Please sleep in a bed or couch to prevent kinking at the hips and knees. Please take your incentive spirometer (your lung rn support services) home with you and use it for the next few days to prevent pneumonias. You may shower, no hot tubs, baths or swimming pools. Please call the office with any questions or concerns such as increasing abdominal pain, fever, chills, shortness of breath, chest pain, leg pain or swelling, or redness or drainage from your incisions. Please stay on stage 3 diet which includes sugar free clear liquids such as ice pops and jello and broth and crystal light. Avoid all carbonation. Please drink 3 protein shakes with at least 25-30 grams of protein daily or 3 of the Celebrat e 4:1 shakes which can be purchased in our office. The Celebrate shakes have all of the bariatric vitamins you need if you consume these shakes. If you are drinking other protein shakes, you will need to purchase the Celebrate multivitamins and calcium that we provide in the office (they will provide all the vitamins you need). Please make sure you are consuming at least 40-60 ounces of water in addition to your 3 protein shakes daily. Do not hesitate to contact the office with any questions at . The patient's medical history has been reviewed and they are considered low risk for post op DVT and therefore DVT prophylaxis is not considered necessary. Travel after surgery was reviewed. The patient has not disclosed any travel plans during the first 30 days after surgery and they have been advised that within the first 30 days after surgery any bus, plane, train or car travel over 2 hours in duration is contraindicated due to the possibility of developing blood clots from immobility. Any travel, needs to include periods of ambulation of 10 minutes in duration every 2 hours.? The patient was instructed to discuss any plans for travel during this period with their bariatric surgeon. Assessment: stable s/p laparoscopic sleeve gastrectomy Discharge Date/Time: 05/12/22 09:14
--- NOTE | 2022-05-11 14:00 | PHA.MEDREC ---
Pharmacy Consult ? Medication Reconciliation Pharmacy has completed the medication reconciliation. Reviewed med rec done by nursing (Teresa). Claim history cross-referenced and verifies current meds.
[2022-05-11 14:12] LABS: Hematocrit 39.5 % (37.0-47.0); Hemoglobin 13.3 g/dl (12.0-16.0)
[2022-05-11] MEDS: Famotidine/PF 20 MG/2 ML VIAL IVPUSH ×2 (14:15→20:44)
[2022-05-11 14:26] LABS: Anion Gap 18 (12-20); Blood Urea Nitrogen 10 mg/dL (9-16); Calcium 8.6 mg/dL (8.4-10.2); Carbon Dioxide 22 mmol/L (22-29); Chloride 103 mmol/L (96-108); Creatinine Clr Calc Pharmacy 91.6; Estimated Glomerular Filt Rate > 60; Glucose Random 91 mg/dL (60-115); Potassium 4.3 mmol/L (3.3-5.1); Sodium 139 mmol/L (135-145)
[2022-05-11] MEDS: Lactated Ringers 1,000 ML 125 ML IVCONT ×2 (14:28→21:44)
[2022-05-11] MEDS: HYDROmorphone HCl 0.5 MG/0.5 ML SYRINGE 0.25 MG IVPUSH ×2 (16:24→16:29)
[2022-05-11] MEDS: ondansetron HCL 4 MG/2 ML VIAL IVPUSH (18:06)
[2022-05-11] MEDS: 0.9 % Sodium Chloride Flush 3 ML SYRINGE IVFLUSH (20:44)
[2022-05-11] MEDS: Metoclopramide HCl 10 MG/2 ML VIAL IVPUSH (23:38)
[2022-05-12] MEDS: ondansetron HCL 4 MG/2 ML VIAL IVPUSH (03:35)
[2022-05-12 04:00] VITALS: BP 124/71; PULSE 63; RESP 16; TEMP 36.6; O2SAT 95
[2022-05-12] MEDS: Lactated Ringers 1,000 ML 125 ML IVCONT (05:09)
[2022-05-12 05:58] LABS: MANUAL DIFF FLAG NO
[2022-05-12 06:06] LABS: Basophils Percent Auto 0.2 % (0-2); Hematocrit 38.1 % (37.0-47.0); Hemoglobin 12.9 g/dl (12.0-16.0); Imm Gran Abs Auto 0.01 X10*3/uL (0.00-0.03); Imm Gran Pct Auto 0.2 % (0.0-0.4); Lymphocytes Absolute Auto 0.6 X10*3/uL (1.2-4.9); Lymphocytes Percent Auto 9.5 % (20-40); Mean Corpuscular HGB Conc 33.9 g/dl (31.0-35.0); Mean Corpuscular Hemoglobin 29.8 pg (27.0-33.0); Monocytes Absolute Auto 0.2 X10*3/uL (0.1-1.2); Monocytes Percent Auto 2.5 % (2-11); Neutrophils Absolute Auto 5.7 x10*3/uL (2.0-8.3); Neutrophils Percent Auto 87.6 % (45-73); Platelet Count 292 X10*3/uL (160-400); Red Blood Count 4.33 X10*6/uL (4.20-5.50); Red Cell Distribution Width 12.5 % (11.0-16.0); White Blood Count 6.5 X10*3/uL (4.8-10.8)
[2022-05-12 06:46] LABS: Anion Gap 17 (12-20); Blood Urea Nitrogen 8 mg/dL (9-16); Calcium 8.4 mg/dL (8.4-10.2); Carbon Dioxide 22 mmol/L (22-29); Chloride 102 mmol/L (96-108); Creatinine Clr Calc Pharmacy 104.4; Estimated Glomerular Filt Rate > 60; Glucose Random 111 mg/dL (60-115); Potassium 4.7 mmol/L (3.3-5.1); Sodium 136 mmol/L (135-145)
[2022-05-12] MEDS: Famotidine/PF 20 MG/2 ML VIAL IVPUSH (07:10)
[2022-05-12 07:29] VITALS: BP 116/66; PULSE 59; RESP 58; TEMP 36.7; O2SAT 99
--- NOTE | 2022-05-12 08:06 | MHC.CM.PN ---
Addendum entered by Jennifer Odell 05/12/22 09:12: HCP competed, original and copies given to patient. Copy uploaded to [facility] and copy filed in chart. Original Note: PATIENT LIVES WITH FAMILY HCP-EDUCATED, DECLINED TO COMPETE AT THIS TIME INDEPENDENT AT HOME AND COMMUNITY DENIES DME USE OR RECEIVING HOME SERVICES COVID X2 MRNA PCP: SHAMIKA MOREIRA FAMILY WILL TRANSPORT D/C PLAN: HOME SELF-CARE
--- NOTE | 2022-05-12 08:15 | MHC.CM.PN ---
PATIENT HAS BEEN MEDICALLY CLEARED FOR DISCHARGE TODAY; DISCHARGE DISPOSITION IS HOME SELF-CARE. FAMILY TO TRANSPORT.
--- NOTE | 2022-05-12 11:25 | HO.POSTANES ---
Post Anesthesia Evaluation Post Anesthesia Evaluation Vital Signs: Vital Signs Temp Pulse Resp BP Pulse Ox O2 Del Method 05/12/22 07:29 98.1 F 59 58 H 116/66 99 Room Air 05/12/22 04:00 97.9 F 63 16 124/71 95 Room Air 05/11/22 23:56 97.5 F 69 16 129/80 96 Room Air Anesthesia: General Endotracheal-GETA Mental Status: Awake Pain Control: Satisfactory (Mild incisional pain) Nausea/Vomiting: None Hydration: Adequate Anesthesia-Related Issues: No Anes. Related Issues
== END 2022-05-12 09:14 | disposition home or self-care (01) | DRG 621 ==
LOC: HO.SSSA 13:26 → HO.S3 15:36
PROVIDERS: Anesthesiology; Physician Assistant Surgical; Admitting Provider Surgery; PCP Internal Medicine; Visit Provider Surgery
PROC: 0DB64Z3 Excision of Stomach, Percutaneous Endoscopic Approach, Vertical (ICD-10-PCS; CPT 43845; principal; 2022-05-11 10:20)
DX: E66.01 Morbid (severe) obesity due to excess calories (principal); M54.9 Dorsalgia, unspecified; K74.00 Hepatic fibrosis, unspecified; K66.0 Peritoneal adhesions (postprocedural) (postinfection); K76.0 Fatty (change of) liver, not elsewhere classified; I51.7 Cardiomegaly; Z68.36 Body mass index [BMI] 36.0-36.9, adult; Z20.822 Contact with and (suspected) exposure to COVID-19; Z79.899 Other long term (current) drug therapy
CPT/HCPCS: 36415; 80048; 80053; 80061; 81025; 83036; 84443; 85014; 85018; 85025; 85610; 85730; 86140; 86850; 86900; 86901; 87635; 88307; 88342; A4649; C9088; J0131; J0690; J1100; J1170; J2250; J2405; J2765; J2795; J3010

== ENCOUNTER → 2022-06-01 11:24 | Outpatient (BNVA) | payer OTHER, SELFPAY | PROVIDERS: PCP Internal Medicine; Visit Provider Dietitian, Registered | DX: E66.9 Obesity, unspecified (principal); Z68.33 Body mass index [BMI] 33.0-33.9, adult | CPT/HCPCS: 97803 ==

== ENCOUNTER → 2022-06-08 13:51 | Outpatient (BNVA) | payer OTHER, SELFPAY | PROVIDERS: PCP Internal Medicine; Visit Provider Dietitian, Registered | DX: E66.9 Obesity, unspecified (principal) | CPT/HCPCS: 97803 ==

== ENCOUNTER → 2022-06-15 13:23 | Outpatient (BNVA) | payer OTHER, SELFPAY | PROVIDERS: PCP Internal Medicine; Visit Provider Dietitian, Registered | DX: E66.9 Obesity, unspecified (principal); Z68.33 Body mass index [BMI] 33.0-33.9, adult | CPT/HCPCS: 97803 ==

== ENCOUNTER 2022-06-21 17:25 | Outpatient (REF) | payer OTHER, SELFPAY ==
--- NOTE | ~2022-06-21 | XR_ITS ---
EXAMINATION: XR KNEE, RIGHT CLINICAL INFORMATION: Pain in right knee. COMPARISON: None. TECHNIQUE: AP and lateral views of the right knee of the right knee. FINDINGS: Patellofemoral compartment: Small marginal osteophytes indicative of mild osteoarthritis. There is a small oval 3 mm ossification overlying the anterior recess. There are 2 small ossifications just proximal to the proximal head of the fibula, well corticated. No effusion. Bone and joints otherwise unremarkable. XR/XR knee RT 2V IMPRESSION: Mild patellofemoral osteoarthritis. Small ossification overlying the anterior recess of the knee could reflect a small loose body. Small osseous fragments proximal to the fibula of uncertain etiology and significance. This most likely reflects posttraumatic change with residual dystrophic or heterotopic ossification. Loose bodies migrating into the popliteal recess is less likely.
== END 2022-06-21 17:26 | disposition home or self-care (01) ==
LOC: HO.XRAY 17:25
PROVIDERS: PCP Internal Medicine; Visit Provider Internal Medicine
DX: M25.561 Pain in right knee (principal)
CPT/HCPCS: 73560

== ENCOUNTER → 2022-06-29 13:49 | Outpatient (BNVA) | payer OTHER, SELFPAY | PROVIDERS: PCP Internal Medicine; Visit Provider Dietitian, Registered | DX: E66.9 Obesity, unspecified (principal); Z68.32 Body mass index [BMI] 32.0-32.9, adult | CPT/HCPCS: 97803 ==

== ENCOUNTER 2022-08-26 08:02 | Outpatient (REF) | payer OTHER, SELFPAY ==
[2022-08-26 08:18] LABS: MANUAL DIFF FLAG NO
[2022-08-26 08:40] LABS: Basophils Percent Auto 0.3 % (0-2); Eosinophils Absolute Auto 0.1 X10*3/uL (0.0-0.4); Eosinophils Percent Auto 2.3 % (0-4); Hematocrit 37.7 % (37.0-47.0); Hemoglobin 12.4 g/dl (12.0-16.0); Imm Gran Abs Auto 0.01 X10*3/uL (0.00-0.03); Imm Gran Pct Auto 0.3 % (0.0-0.4); Lymphocytes Absolute Auto 1.5 X10*3/uL (1.2-4.9); Lymphocytes Percent Auto 43.3 % (20-40); Mean Corpuscular HGB Conc 32.9 g/dl (31.0-35.0); Mean Corpuscular Hemoglobin 30.2 pg (27.0-33.0); Mean Platelet Volume 10.2 fL (9.4-12.3); Monocytes Absolute Auto 0.3 X10*3/uL (0.1-1.2); Monocytes Percent Auto 9.2 % (2-11); Neutrophils Absolute Auto 1.6 x10*3/uL (2.0-8.3); Neutrophils Percent Auto 44.6 % (45-73); Platelet Count 273 X10*3/uL (160-400); Red Cell Distribution Width 14.1 % (11.0-16.0); White Blood Count 3.5 X10*3/uL (4.8-10.8)
[2022-08-26 09:11] LABS: Alanine Aminotransferase 23 U/L (0-31); Albumin Level 3.8 g/dL (3.5-5.0); Alkaline Phosphatase 76 U/L (39-117); Anion Gap 10 (12-20); Aspartate Amino Transferase 18 U/L (5-31); Bilirubin Total 0.8 mg/dL (0.0-1.0); Blood Urea Nitrogen 9 mg/dL (9-16); Calcium 8.6 mg/dL (8.4-10.2); Carbon Dioxide 28 mmol/L (22-29); Chloride 106 mmol/L (96-108); Cholesterol 168 mg/dL; Estimated Glomerular Filt Rate > 60; Glucose Fasting 88 mg/dL (60-99); HDL Cholesterol 30 mg/dL; LDL Cholesterol Calculated 128 mg/dl; Potassium 3.9 mmol/L (3.3-5.1); Sodium 140 mmol/L (135-145); Total Protein 6.3 g/dL (6.5-8.0); Triglycerides 50 mg/dL
== END 2022-08-26 08:03 | disposition home or self-care (01) ==
LOC: HO.LAB 08:02
PROVIDERS: PCP Internal Medicine; Visit Provider Internal Medicine
DX: E78.5 Hyperlipidemia, unspecified (principal); E66.9 Obesity, unspecified; D64.9 Anemia, unspecified
CPT/HCPCS: 36415; 80053; 80061; 85025

== ENCOUNTER → 2022-09-09 12:12 | Outpatient (BNVA) | payer OTHER, SELFPAY | PROVIDERS: PCP Internal Medicine; Visit Provider Dietitian, Registered | DX: E66.3 Overweight (principal); Z68.29 Body mass index [BMI] 29.0-29.9, adult | CPT/HCPCS: 97803 ==

== ENCOUNTER → 2022-10-11 13:09 | Outpatient (BNVA) | payer OTHER, SELFPAY | PROVIDERS: PCP Internal Medicine; Visit Provider Dietitian, Registered | DX: E66.3 Overweight (principal) | CPT/HCPCS: 97803 ==

== ENCOUNTER 2022-10-30 21:58 | Emergency (ER) | payer OTHER, SELFPAY ==
--- NOTE | 2022-10-30 | ECG_ITS ---
Test Reason : CHEST PAIN Blood Pressure : / mmHG Vent. Rate : 067 BPM Atrial Rate : 067 BPM P-R Int : 154 ms QRS Dur : 068 ms QT Int : 388 ms P-R-T Axes : 052 017 048 degrees QTc Int : 409 ms Normal sinus rhythm Low voltage QRS Abnormal ECG When compared with ECG of 22-JUN-2021 07:48, No significant change was found Referred By: Generic ED Physician Electronically Signed By:Germán Sanders
--- NOTE | ~2022-10-30 | US_ITS ---
EXAMINATION: US ABDOMEN LIMITED CLINICAL INFORMATION: Right upper quadrant pain. Assess gallbladder. COMPARISON: 08/02/2021 TECHNIQUE: Real-time imaging of the right upper quadrant specifically targeted to evaluate only the gallbladder. FINDINGS: GALLBLADDER: Adenomyomatosis is seen in the gallbladder fundus with comet tail artifact noted. Few dependent gallstones are noted as well. The gallbladder is partially contracted. I do not appreciate any pericholecystic inflammatory changes. Gallbladder wall thickness is up to 0.5 cm is nonspecific in this setting. No sonographic Altman sign FREE FLUID: None. US/US abdomen limited IMPRESSION: Gallstones within the partially contracted gallbladder. No sonographic Altman sign. Gallbladder wall thickness is 0.5 cm is nonspecific in this setting. No pericholecystic inflammatory changes.
[2022-10-30 22:10] VITALS: BMI 27.3
[2022-10-30 22:13] VITALS: BP 145/84; PULSE 65; RESP 20; TEMP 36.8; O2SAT 99
--- NOTE | 2022-10-30 22:14 | PC.NURSE ---
pt directly brought to room and vitals taken there by PCT.
--- NOTE | 2022-10-30 22:20 | PC.NURSE ---
pt comes from home with epigastric/chest opain; just had an episode of vomiting accompanied by nausea; pt states pain radiates to abd and back and states difficulty catching breath
--- NOTE | 2022-10-30 22:40 | ED.ABDPAIN ---
HPI - Abdominal Pain General Chief Complaint: Chest Pain Stated Complaint: Chest pain Time Seen by Provider: 10/30/22 22:24 Source: patient and family Mode of arrival: ambulatory Limitations: no limitations History of Present Illness HPI narrative: 46-year-old female with history of morbid obesity status post laparoscopic sleeve gastrectomy 5 months ago presented for evaluation of severe epigastric pain started about 3 hours ago patient was at rest when she started to have 10/10 severe pain localized to the epigastric area, pain with associated with nausea and vomiting, no fever chills, pain is not radiating. No diarrhea with normal bowel movement, patient earlier had chicken wings before the pain started that other family member ate from the same food. No fever, no chills. Related Data Previous Rx's Medication Instructions Recorded sucralfate 100 mg/mL oral 10 ml PO BID #400 mL 04/26/22 suspension iron,carbonyl 65 mg-vitamin C 125 1 tab PO DAILY #30 tabs 05/30/22 mg tablet,delayed release (Vitron-C) pantoprazole 40 mg tablet,delayed 40 mg PO DAILY #30 tabs 09/28/22 release Allergies Allergy/AdvReac Type Severity Reaction Status Date / Time No Known Allergies Allergy Verified 08/31/22 16:45 Review of Systems Review of Systems All other systems are reviewed and are negative Constitutional: Reports as per HPI and Reports no additional constitutional complaints Eyes: Reports as per HPI and Reports no additional eye complaints Reports system reviewed and no additional complaints, except as documented Cardiovascular: Reports as per HPI and Reports no additional cardiovascular complaints Respiratory: Reports as per HPI and Reports no additional respiratory complaints Gastrointestinal: Reports as per HPI and Reports no additional gastrointestinal complaints Genitourinary: Reports no additional female genitourinary complaints Musculoskeletal: Reports no additional musculoskeletal complaints Skin/Breast: Reports system reviewed and no additional complaints, except as docu Psychiatric: Reports no additional psychiatric complaints Endocrine: Reports no additional endocrine complaints Hematologic/Lymphatic: Reports no additional hematologic/lymphatic complaints Allergic/Immunologic: Reports no additional allergic/immunologic complaints Reports system reviewed and no additional complaints, except as documented and Reports Abnormal speech present [facility] Past Medical History Medical History Back pain BMI 35.0-35.9,adult Candidal intertrigo Class 2 obesity with body mass index (BMI) of 37.0 to 37.9 in adult Helicobacter pylori antibody positive Leukopenia Morbid obesity Pre-op evaluation Right foot pain Skin lesion Vitamin A deficiency Surgical History Hx of section S/P laparoscopic sleeve gastrectomy Family History Family History Mother Asthma Father No problems noted. Sister No problems noted. Sister No problems noted. Brother No problems noted. Brother No problems noted. Son No problems noted. Daughter No problems noted. Social History Social History Housing: House Are you a primary sub acute care nurse to a significant other at home: No Do you presently have visiting nurse or other home services: No Alcohol intake: never Patient Tobacco Use Status: Never used Tobacco Smoked in Last 30 Days: No e-Cigarette/Vaping Use: Never Used Second Hand Smoke Exposure: No Use of substances other than those prescribed or required for medical reasons: No Advance Directives: No Advance Directives Information Provided: No service: No Current occupational status: employed Current occupational exposures/hazards: No Cognitive needs: No Hearing needs: No Vision needs: No Physical Exam ED Vital Signs: Vital Signs - 24 hr 10/30/22 22:13 10/30/22 23:31 Temperature 98.2 F 98.0 F Pulse Rate 65 57 Respiratory Rate 20 17 Blood Pressure 145/84 H 116/72 Pulse Oximetry 99 98 Oxygen Delivery Method Room Air Room Air BMI result Body Mass Index 27.3 Vital signs have been reviewed as appeared to be correct. Blood pressure normal. Heart rate normal. Respiration rate normal. Temperature normal. Oxygen saturation normal. Appearance: Alert. Oriented X3. Mild acute distress due to abdominal pain. Head: Normal external exam. Normocephalic. Atraumatic. No Britton signs noted. No raccoon eyes noted Eyes: PERRLA. EOMI. Conjunctiva and sclera normal. Eyelids normal. ENT: TM's Normal. Pharynx normal. Uvula midline. Moist mucous membranes. No trismus noted. No drooling noted. No muffled voice noted. Neck: Normal inspection. Neck supple. FROM. No adenopathy. Thyroid Normal. No meningeal signs. No neck mass noted. CVS: Normal heart rate and rhythm. Heart sound normal. No murmurs noted. Pulses normal throughout. Respiratory: No respiratory distress. Painless inspiration. Breath sounds normal. No wheezes/rales/rhonchi noted. Chest nontender. No accessory muscle usage noted or decreased air movement noted. Abdomen: Soft, severe epigastric/right upper quadrant pain with Altman's sign. Bowel sounds normal in all 4 quadrants. No distention noted. No organomegaly noted. No visible injury noted. Back: No CVA tenderness. Full range of motion noted. Skin: Skin warm and dry. Normal skin color. Normal skin turgor. No rashes/lesions/lacerations noted. Extremities: No lower extremity edema. Extremities exhibit normal range of motion. Extremities nontender. Neuro: Oriented X 3. Cranial nerve exam: II-XII are grossly intact No motor deficit. No sensory deficit. Reflexes normal. Course Course Course Narrative: 46-year-old female presented epigastric/upper abdominal pain after eating chicken wings, physical exam and abdominal ultrasound is consistent with cholelithiasis without acute cholecystitis, patient received morphine and Pepcid with much improvement of her symptoms. The case discussed with Orville kim who reported that the case was reviewed with his attending Dr. Pinzon that the patient can go home after improvement of her pain and able to tolerate p.o. intake. Reevaluation(s) Reevaluation #1: Patient has less pain and able to tolerate p.o. intake with no nausea and vomiting, patient will be discharged home as recommended by bariatric surgery department, patient will be contacted by the office to schedule an appointment as an outpatient patient fully understood the discharge instructions. Time: 01:35 Medical Decision Making Differential Diagnosis Differential Diagnoses: The differential diagnosis associated with the presentation includes (Cholelithiasis, acute cholecystitis, gastritis, ACS, pancreatitis.) Consult Healthcare Provider Management of the patient was discussed with: Fitness Consultant (Orville Kim) Lab Data MDM Lab Attestation statement: I reviewed the patient's lab results. 10/30/22 22:31 10/30/22 22:32 Labs: Lab Results 10/30/22 10/30/22 10/30/22 Range/Units 22:31 22:32 22:32 WBC 4.5 L (4.8-10.8) X10*3/uL RBC 4.21 (4.20-5.50) X10*6/uL Hgb 12.6 (12.0-16.0) g/dl Hct 37.8 (37.0-47.0) % MCV 89.8 (80.0-98.0) fL MCH 29.9 (27.0-33.0) pg MCHC 33.3 (31.0-35.0) g/dl RDW 13.0 (11.0-16.0) % Plt Count 265 (160-400) X10*3/uL MPV 9.8 (9.4-12.3) fL Absolute Nucleated RBC 0.000 (0.0-0.012) X10*3/uL Nucleated RBC % (auto) 0.0 (0.0-0.2) /100WBC Sodium 139 (135-145) mmol/L Potassium 4.0 (3.3-5.1) mmol/L Chloride 105 (96-108) mmol/L Carbon Dioxide 26 (22-29) mmol/L Anion Gap 12 (12-20) BUN 19 H (9-16) mg/dL Creatinine 0.74 (0.5-1.4) mg/dL Estim Creat Clear Calc 96.9 Estimated GFR > 60 Random Glucose 99 (60-115) mg/dL Calcium 8.4 (8.4-10.2) mg/dL Total Bilirubin 0.2 (0.0-1.0) mg/dL AST 15 (5-31) U/L ALT 12 (0-31) U/L Alkaline Phosphatase 84 (39-117) U/L Troponin I High Sens < 3.5 (<3.5-17.0) ng/L Total Protein 6.3 L (6.5-8.0) g/dL Albumin 3.9 (3.5-5.0) g/dL Lipase 43 (8-78) U/L Beta HCG, Quant < 2 mIU/mL COVID-19 ([facility]) (Negative) COVID-19 Clin Com 10/30/22 Range/Units 23:56 WBC (4.8-10.8) X10*3/uL RBC (4.20-5.50) X10*6/uL Hgb (12.0-16.0) g/dl Hct (37.0-47.0) % MCV (80.0-98.0) fL MCH (27.0-33.0) pg MCHC (31.0-35.0) g/dl RDW (11.0-16.0) % Plt Count (160-400) X10*3/uL MPV (9.4-12.3) fL Absolute Nucleated RBC (0.0-0.012) X10*3/uL Nucleated RBC % (auto) (0.0-0.2) /100WBC Sodium (135-145) mmol/L Potassium (3.3-5.1) mmol/L Chloride (96-108) mmol/L Carbon Dioxide (22-29) mmol/L Anion Gap (12-20) BUN (9-16) mg/dL Creatinine (0.5-1.4) mg/dL Estim Creat Clear Calc Estimated GFR Random Glucose (60-115) mg/dL Calcium (8.4-10.2) mg/dL Total Bilirubin (0.0-1.0) mg/dL AST (5-31) U/L ALT (0-31) U/L Alkaline Phosphatase (39-117) U/L Troponin I High Sens (<3.5-17.0) ng/L Total Protein (6.5-8.0) g/dL Albumin (3.5-5.0) g/dL Lipase (8-78) U/L Beta HCG, Quant mIU/mL COVID-19 ([facility]) Negative (Negative) COVID-19 Clin Com See Note Independent Interpretation I performed an independent interpretation of an: EKG (Normal sinus rhythm at 67 beats per minute, normal intervals, normal axis deviation, no ST-T changes.) and Ultrasound Interpretation: Abdominal ultrasound:Gallstones within the partially contracted gallbladder. No sonographic Altman sign. Gallbladder wall thickness is 0.5 cm is nonspecific in this setting. No pericholecystic inflammatory changes. ? Radiology Impression Discussion of test interpretation with radiology: I have reviewed the radiologist's reading. Medications Administered Discontinued Medications Generic Name Dose Route Start Last Admin Trade Name Freq PRN Reason Stop Dose Admin Famotidine 20 mg 10/30/22 22:35 10/30/22 23:04 Famotidine/Pf 20 Mg/2 Ml Vial IVPUSH 10/30/22 22:36 20 mg ONCE ONE Administration Morphine Sulfate 2 mg 10/30/22 22:35 10/30/22 23:05 Morphine Sulfate 2 Mg/Ml Cartridge IVPUSH 10/30/22 22:36 2 mg ONCE ONE Administration Protocol Ondansetron HCl 4 mg 10/30/22 22:35 10/30/22 23:04 Ondansetron Hcl 4 Mg/2 Ml Vial IVPUSH 10/30/22 22:36 4 mg ONCE ONE Administration Discharge Plan Discharge Clinical Impression: Biliary colic, Cholelithiasis Patient Disposition: Home, Self-Care Instructions: Gallstones (ED) Prescriptions: No Action Vitron-C 65 mg iron- 125 mg tablet,delayed release (DR/EC) 1 tab PO DAILY Qty: 30 2RF Rx Instructions: swallow whole; do not chew/break/dissolve/open pantoprazole 40 mg tablet,delayed release (DR/EC) 40 mg PO DAILY Qty: 30 3RF sucralfate 100 mg/mL suspension 10 ml PO BID Qty: 400 3RF Label Comments: PT WILL USES AFTER SURGERY Referrals: Hipolito Valdez MD [Physician] -
[2022-10-30 22:48] LABS: Hematocrit 37.8 % (37.0-47.0); Hemoglobin 12.6 g/dl (12.0-16.0); Mean Corpuscular HGB Conc 33.3 g/dl (31.0-35.0); Mean Corpuscular Hemoglobin 29.9 pg (27.0-33.0); Mean Corpuscular Volume 89.8 fL (80.0-98.0); Mean Platelet Volume 9.8 fL (9.4-12.3); Platelet Count 265 X10*3/uL (160-400); Red Blood Count 4.21 X10*6/uL (4.20-5.50); White Blood Count 4.5 X10*3/uL (4.8-10.8)
[2022-10-30 23:04] LABS: Alanine Aminotransferase 12 U/L (0-31); Albumin Level 3.9 g/dL (3.5-5.0); Alkaline Phosphatase 84 U/L (39-117); Anion Gap 12 (12-20); Aspartate Amino Transferase 15 U/L (5-31); Bilirubin Total 0.2 mg/dL (0.0-1.0); Blood Urea Nitrogen 19 mg/dL (9-16); Calcium 8.4 mg/dL (8.4-10.2); Carbon Dioxide 26 mmol/L (22-29); Chloride 105 mmol/L (96-108); Creatinine Clr Calc Pharmacy 96.9; Estimated Glomerular Filt Rate > 60; Glucose Random 99 mg/dL (60-115); Lipase 43 U/L (8-78); Sodium 139 mmol/L (135-145); Total Protein 6.3 g/dL (6.5-8.0)
[2022-10-30] MEDS: Famotidine/PF 20 MG/2 ML VIAL IVPUSH (23:04)
[2022-10-30] MEDS: ondansetron HCL 4 MG/2 ML VIAL IVPUSH (23:04)
[2022-10-30] MEDS: Morphine Sulfate 2 MG/ML CARTRIDGE IVPUSH (23:05)
[2022-10-30 23:06] LABS: HCG Quantitative < 2 mIU/mL; Troponin-I High Sensitivity < 3.5 ng/L (<3.5-17.0)
[2022-10-30 23:31] VITALS: BP 116/72; PULSE 57; RESP 17; TEMP 36.7; O2SAT 98
[2022-10-31 00:23] LABS: COVID-19 Test Negative (Negative); IDNOW Serial# BCCEAD1C
[2022-10-31 01:51] VITALS: BP 108/64; PULSE 60; RESP 14; O2SAT 97
--- NOTE | 2022-10-31 02:16 | PC.NURSE ---
discharge instructions given/explained, ambulates safely/independently, no apparent distress, no sob, able to speak in full sentences, IV cath intact upon removal
== END 2022-10-31 02:26 | disposition home or self-care (01) ==
PROVIDERS: Emergency Provider Emergency Medicine; PCP Internal Medicine
DX: K80.20 Calculus of gallbladder without cholecystitis without obstruction (principal); R10.13 Epigastric pain; Z20.822 Contact with and (suspected) exposure to COVID-19; Z20.828 Contact with and (suspected) exposure to other viral communicable diseases; Z79.899 Other long term (current) drug therapy
CPT/HCPCS: 36415; 76705; 80053; 83690; 84484; 84702; 85027; 87635; 93005; 96374; 96375; 99284; 99285; J2270; J2405

== ENCOUNTER → 2022-10-31 12:56 | Outpatient (BNVA) | payer OTHER, SELFPAY | PROVIDERS: PCP Internal Medicine; Visit Provider Surgery | DX: Z13.89 Encounter for screening for other disorder (principal) ==

== ENCOUNTER → 2022-11-11 15:51 | Outpatient (BNVA) | payer OTHER, SELFPAY | PROVIDERS: PCP Internal Medicine; Visit Provider Physician Assistant Surgical | DX: Z13.89 Encounter for screening for other disorder (principal) ==

== ENCOUNTER 2022-11-17 08:12 | Outpatient (REF) | payer OTHER, SELFPAY ==
[2022-11-17 09:01] LABS: Estimated Average Glucose 111 mg/dL; Hemoglobin A1c % 5.5 %
[2022-11-17 09:29] LABS: C Reactive Protein 0.37 mg/dL (< or = 0.50); Cholesterol 164 mg/dL; HDL Cholesterol 34 mg/dL; Iron 93 mcg/dL (30-160); LDL Cholesterol Calculated 119 mg/dl; Percent Iron Saturation 47 % (15-50); Total Iron Binding Capacity 199 mcg/dL (228-428); Triglycerides 58 mg/dL; Unsaturated Iron Binding 106 ug/dL
[2022-11-17 10:11] LABS: Ferritin 198 ng/mL (10-250); Folate 13.2 ng/mL (> or = 4.0); Insulin 11 uU/mL (2-29); TSH reflex Free T4 0.78 uIU/mL (0.32-4.0); Vitamin B12 615 pg/mL (200-900); Vitamin D 25-OH Total 37.6 ng/mL (>30)
[2022-11-21 13:58] LABS: Zinc 81 mcg/dL (60-130)
[2022-11-21 15:54] LABS: Calcium (PTHI) 8.9 mg/dL (8.6-10.2); PTHI 61 pg/mL (16-77)
[2022-11-22 13:32] LABS: Vitamin A 59 mcg/dL (38-98)
[2022-11-23 16:54] LABS: Vitamin B1 15 nmol/L (8-30)
== END 2022-11-17 08:13 | disposition home or self-care (01) ==
LOC: HO.LAB 08:12
PROVIDERS: PCP Internal Medicine; Visit Provider Physician Assistant Surgical
DX: K91.2 Postsurgical malabsorption, not elsewhere classified (principal); Z98.84 Bariatric surgery status
CPT/HCPCS: 36415; 80061; 82306; 82607; 82728; 82746; 83036; 83525; 83540; 83970; 84425; 84443; 84590; 84630; 86140

== ENCOUNTER 2022-11-24 05:48 | Day surgery (SDC) | payer OTHER, SELFPAY ==
[2022-11-18 15:27] VITALS: BMI 27.6
--- NOTE | 2022-11-23 10:42 | P.CONAN_ITS ---
Documented by User: Denise Newman NP 11/23/22 10:45 HPI - Anesthesia Eval Consult details Narrative: 47yo F for Cholecystectomy Laparoscopic, possible open Gastric sleeve 04/2022 with GA-ETT 7 PMFSH Active Problems Active Problems: All Active Problems (Updated 11/18/22 @ 15:18 by Rosalba Woodruff RN) Abnormal EKG (Acute) Mild single current episode of major depressive disorder (Acute) GERD (gastroesophageal reflux disease) (Acute) Obesity (Acute) BMI 36.0-36.9,adult (Acute) BMI 34.0-34.9,adult (Acute) LVH (left ventricular hypertrophy) (Acute) Steatosis, liver (Acute) Liver fibrosis (Acute) Congenital intra-abdominal adhesions (Acute) Menorrhagia (Acute) Right knee pain (Acute) Right foot pain (Acute) BMI 31.0-31.9,adult (Acute) Physical exam (Acute) Overweight (Acute) S/P laparoscopic sleeve gastrectomy (Acute) Back pain (Acute) Past Medical History Medical History Back pain BMI 35.0-35.9,adult Candidal intertrigo Class 2 obesity with body mass index (BMI) of 37.0 to 37.9 in adult Helicobacter pylori antibody positive Leukopenia Morbid obesity Pre-op evaluation Right foot pain Skin lesion Vitamin A deficiency Family History Family History Mother Asthma Father No problems noted. Sister No problems noted. Sister No problems noted. Brother No problems noted. Brother No problems noted. Son No problems noted. Daughter No problems noted. Family history of problems with anesthesia: No Surgical History Surgical History Hx of section S/P laparoscopic sleeve gastrectomy History of Problems with Anesthesia: No Social History Social History Housing: House Are you a primary nurse care manager to a significant other at home: No Do you presently have visiting nurse or other home services: No Alcohol intake: never Patient Tobacco Use Status: Never used Tobacco e-Cigarette/Vaping Use: Never Used Second Hand Smoke Exposure: No Use of substances other than those prescribed or required for medical reasons: No Have you been hit, kicked, punched, or otherwise hurt by someone within the past year? If so, by whom?: No Are you DNR?: No Advance Directives: No Advance Directives Information Provided: Yes Advance Directives on File: No Recently lost weight without trying: No Patient : No service: No Current occupational status: employed Current occupational exposures/hazards: No Cognitive needs: No Hearing needs: No Vision needs: No Meds Allergies Allergy/AdvReac Type Severity Reaction Status Date / Time No Known Allergies Allergy Verified 11/24/22 06:04 Home Medications Medication Instructions Recorded Confirmed Last Taken Type No Known Home Meds 11/11/22 11/18/22 Unknown History Exam Exam Date and Time: November 23, 2022 104 Height,Weight and Vital Signs: Height 5 ft 5 in Weight 75.478 kg Pertinent Lab Results Pertinent Lab Results: Laboratory Tests 10/30/22 10/30/22 22:31 22:32 WBC 4.5 L Hgb 12.6 Hct 37.8 Plt Count 265 Sodium 139 Potassium 4.0 Chloride 105 Carbon Dioxide 26 BUN 19 H Creatinine 0.74 Narrative Narrative: EKG 10/2022 Vent. Rate : 067 BPM ? ? Atrial Rate : 067 BPM ?? P-R Int : 154 ms? QRS Dur : 068 ms ? ? QT Int : 388 ms ? ? ? P-R-T Axes : 052 017 048 degrees ?? QTc Int : 409 ms ? Normal sinus rhythm Low voltage QRS Abnormal ECG When compared with ECG of 22-JUN-2021 07:48, No significant change was found ECHO 2020 Conclusions: - The left ventricular systolic function is normal.? The visually estimated ejection fraction is between 60-65%. ? - No obvious valvular pathology seen on this study.? ? ? Assessment and Plan Assessment Anesthesia Assessment: Chart Reviewed Final Anesthetic Review Family History of Problems with Anesthesia: No History of Problems with Anesthesia: No Documented by User: Dante Sosa MD 11/24/22 07:34 [facility] Past Medical History Medical History Back pain BMI 35.0-35.9,adult Candidal intertrigo Class 2 obesity with body mass index (BMI) of 37.0 to 37.9 in adult Helicobacter pylori antibody positive Leukopenia Morbid obesity Pre-op evaluation Right foot pain Skin lesion Vitamin A deficiency Patient : No Family History Family History Mother Asthma Father No problems noted. Sister No problems noted. Sister No problems noted. Brother No problems noted. Brother No problems noted. Son No problems noted. Daughter No problems noted. Surgical History Surgical History Hx of section S/P laparoscopic sleeve gastrectomy Social History Social History Housing: House Are you a primary nurse care manager to a significant other at home: No Do you presently have visiting nurse or other home services: No Alcohol intake: never Patient Tobacco Use Status: Never used Tobacco e-Cigarette/Vaping Use: Never Used Second Hand Smoke Exposure: No Use of substances other than those prescribed or required for medical reasons: No Have you been hit, kicked, punched, or otherwise hurt by someone within the past year? If so, by whom?: No Are you DNR?: No Advance Directives: No Advance Directives Information Provided: Yes Advance Directives on File: No Recently lost weight without trying: No Patient : No service: No Current occupational status: employed Current occupational exposures/hazards: No Cognitive needs: No Hearing needs: No Vision needs: No Meds Allergies Allergy/AdvReac Type Severity Reaction Status Date / Time No Known Allergies Allergy Verified 11/24/22 06:04 Home Medications Medication Instructions Recorded Confirmed Last Taken Type No Known Home Meds 11/11/22 11/18/22 Unknown History Exam Airway Mallampati Class: II TM Dist: >3cm Neck ROM: Full Heart: ok Lungs: ok Assessment and Plan Final Anesthetic Review NPO: Yes ASA Class: III Final Preanesthetic Review: No Changes in Pt Med Stat, Meds/Allgs Chart Reviewed, Consent Obtained/Reviewed and Anes Risks/Benef Reviewed Patient Risk: Intermediate Procedure Risk: Intermediate Anesthetic Plan Anesthetic Plan: GA and Agree w/ Assess. and Plan Disposition: Standard PACU
[2022-11-24] VITALS (11 sets, daily range): BP systolic 112–150; BP diastolic 39–82; PULSE 47–72; RESP 9–18; TEMP 36.6; O2SAT 97–100
[2022-11-24 06:23] LABS: UPreg QC Valid YES; Urine Pregnancy NEGATIVE (NEGATIVE)
[2022-11-24] MEDS: Lactated Ringers 1,000 ML 100 ML IVCONT (06:26)
--- NOTE | 2022-11-24 07:13 | W.PM.OPN ---
Operative Note Operative Note Date of Service: 11/24/22 Narrative: Preop diagnosis: [Biliary colic] Postop diagnosis: [Same] Procedure: [Laparoscopic cholecystectomy] Surgeon: Anibal Pinzon MD Assist: [] Anesthesia: [GET] Estimated blood loss: [3cc] Specimen: [Gallbladder with contents] Intraoperative findings: [Cystic duct measuring 4-5 mm; cystic artery measuring 3 mm. Critical view of safety demonstrated] Indications: [The patient is a 47-year-old woman who is status post laparoscopic sleeve gastrectomy who is done well with weight loss. The patient began to experience biliary colic and was noted on ultrasound to have confirmed adenomyosis and history consistent with biliary colic. Given this, the option of continued observation, 2nd opinion or cholecystectomy was discussed as well as the risks and benefits. I recommended proceeding with a laparoscopic cholecystectomy and reviewed the inherent risks of Bleeding that could require another operation or blood transfusion, the need for open surgery, the unlikely but possible issue of bile leak that could require an ERCP, the risk of retained common duct stones that could require an ERCP, the risk of common bile duct injury which would require transfer to a larger institution for another operation. Patient seemed to understand her options, declined a stamp mounter or 2nd opinion and wants to proceed.] Procedure: [The patient was identified in preoperative holding and again in the operating room and placed supine on the table. The patient voided bladder cyber defense incident responder, sequential compression stockings were in place, subcu heparin had been administered and antibiotics per protocol were given. The patient was induced in general endotracheal anesthesia administered with excellent effect. An appropriate time-out was performed. A footboard was utilized. The patient's abdomen was widely prepped and draped in the usual manner for surgery using chlorhexidine. Preemptive local was used at all trocar insertion sites. Again at the supraumbilical location and after infiltrating local, made a stab incision and placed a Veress needle without difficulty. An appropriate drop test was performed and a pneumoperitoneum of 15 mmHg was obtained using carbon dioxide. opening pressure was 7 mmHg. Next, the needle was withdrawn and a 5 mm/30 degree laparoscoped over Optiview trocar was used to access the abdomen without incident. Upon examining the abdomen, there was no evidence of injury from the Veress needle or trocar. Next, 5 mm trocars were placed in the epigastric, subcostal and right anterior axillary line just above the line of the umbilicus. Under direct laparoscopic vision, the 5 mm umbilical port was upsized to a 12 mm. The patient was then positioned in reverse Trendelenburg position and banked left. The gallbladder was clearly identified and grasped by its fundus. It was retracted cranially and anteriorly and dissection began in the cystic triangle. The cystic duct was identified at its junction on the gallbladder and dissection began laterally, then circumferentially dissected using the [place] dissector and hook. The cystic artery was then carefully identified and circumferentially dissected. Once dissection of both structures was complete and the critical view of safety demonstrated, the duct and artery were double clipped proximally and once distally and sharply divided. Electrocautery was used to remove the gallbladder from its fossa on the liver. Liver bed was inspected for hemostasis and the clips were noted to be on the respective structures. The gallbladder was placed in an Endo-Catch bag and delivered through the umbilicus under direct laparoscopic vision. The abdomen was again inspected with the laparoscoped and a abdomen deflated to assess for hemostasis. The patient was returned to neutral position, the abdomen deflated and the fascia of the supraumbilical incision closed with interrupted Vicryl sutures. Skin was closed with 4-0 Monocryl subcuticular sutures. Mastisol and Steri-Strips were applied followed by Band-Aids. The patient tolerated the procedure well and was extubated recovered in stable condition. All sponge instrument counts were correct. At the patient's request I called [her Orion bonilla] at [[phone]] and left a message noting the operation went well since there was no answer.]
--- NOTE | 2022-11-24 07:14 | MHC.SHP ---
Pre-Procedural Eval Section A Date of Service: 11/24/22 The patient is an INPATIENT: No The History & Physical has been completed within 30 days and I have reviewed it.: Yes Section B Chief Complaint: Calculus of gallbladder,Calculus of bile duct Allergies: Allergies Allergy/AdvReac Type Severity Reaction Status Date / Time No Known Allergies Allergy Verified 11/24/22 06:04 Plan I have reviewed the history and physical and performed a pertinent physical examination on my patient. No changes have occurred unless specified. Time Spent With Patient Time: Total time managing care of this patient today ____ minutes.
[2022-11-24] MEDS: ondansetron HCL 4 MG/2 ML VIAL IVPUSH (09:16)
[2022-11-24] MEDS: oxyCODONE HCl Immed Release 5 MG TABLET 10 MG PO (09:18)
[2022-11-24] MEDS: fentaNYL citrate/PF 100 MCG/2 ML VIAL 50 MCG IVPUSH (09:21)
== END 2022-11-24 11:06 | disposition home or self-care (01) ==
LOC: HO.SSS 05:48
PROVIDERS: Nurse Practitioner; PCP Internal Medicine; Visit Provider Surgery
PROC: 0FT44ZZ Resection of Gallbladder, Percutaneous Endoscopic Approach (ICD-10-PCS; CPT 47562; principal; 2022-11-24 07:30)
DX: K80.65 Calculus of gallbladder and bile duct with chronic cholecystitis with obstruction (principal); K82.8 Other specified diseases of gallbladder; K21.9 Gastro-esophageal reflux disease without esophagitis; K76.0 Fatty (change of) liver, not elsewhere classified; Z98.84 Bariatric surgery status; Z90.3 Acquired absence of stomach [part of]; E66.9 Obesity, unspecified; Z68.31 Body mass index [BMI] 31.0-31.9, adult; L30.4 Erythema intertrigo; D72.819 Decreased white blood cell count, unspecified
CPT/HCPCS: 47562; 81025; 88304; J0131; J0690; J1885; J2250; J2405; J3010

== ENCOUNTER → 2022-12-02 09:45 | Outpatient (BNVA) | payer OTHER, SELFPAY | PROVIDERS: PCP Internal Medicine; Visit Provider Surgery | DX: Z13.89 Encounter for screening for other disorder (principal) ==

== ENCOUNTER → 2022-12-08 13:08 | Outpatient (BNVA) | payer OTHER, SELFPAY | PROVIDERS: PCP Internal Medicine; Visit Provider Dietitian, Registered | DX: E66.3 Overweight (principal); Z71.3 Dietary counseling and surveillance | CPT/HCPCS: 97803 ==

== ENCOUNTER → 2023-03-09 13:14 | Outpatient (BNVA) | payer OTHER, SELFPAY | PROVIDERS: PCP Internal Medicine; Visit Provider Dietitian, Registered | DX: E66.3 Overweight (principal); Z98.84 Bariatric surgery status; Z71.3 Dietary counseling and surveillance | CPT/HCPCS: 97803 ==

== ENCOUNTER 2023-04-14 07:16 | Outpatient (REF) | payer OTHER, SELFPAY ==
--- NOTE | ~2023-04-14 | MM_ITS ---
EXAMINATION: MM SCREENING DIGITAL BREAST TOMOSYNTHESIS, BILATERAL CLINICAL INFORMATION: Screening. Asymptomatic. The lifetime risk of breast cancer based on the Tyrer-Cuzick Model is 8%. COMPARISON: Mammography: This study is compared with prior exams dating back to 2017. TECHNIQUE: Digital breast tomosynthesis is performed in both the craniocaudal and mediolateral oblique views along with computer-aided detection (CAD). Synthesized 2D images are generated from the tomosynthesis. FINDINGS: There are scattered areas of fibroglandular density (ACR BI-RADS breast composition Category b). There are no significant masses, abnormal calcifications, or other abnormalities. MM/MM tomosynthesis screening BI IMPRESSION: No mammographic evidence of malignancy. ASSESSMENT: BI-RADS BI-RADS 1 - Negative RECOMMENDATION: Routine annual mammography screening. 1 year F/U This examination should not preclude the clinical evaluation of a suspicious palpable abnormality. This patient's information was entered into a reminder system with a target due date for their next mammogram.
== END 2023-04-14 07:17 | disposition home or self-care (01) ==
LOC: HO.MAMMO 07:16
PROVIDERS: PCP Internal Medicine; Visit Provider Internal Medicine
DX: Z12.31 Encounter for screening mammogram for malignant neoplasm of breast (principal)
CPT/HCPCS: 77063; 77067

== ENCOUNTER → 2023-04-14 07:30 | Outpatient (BNV) | payer OTHER, SELFPAY | PROVIDERS: PCP Internal Medicine; Visit Provider Radiology Diagnostic Radiology | DX: Z12.31 Encounter for screening mammogram for malignant neoplasm of breast (principal) | CPT/HCPCS: 77063; 77067 ==

== ENCOUNTER → 2023-08-04 07:38 | Outpatient (AMB) | payer OTHER, SELFPAY ==
[2023-08-04 07:46] VITALS: BP 118/70; PULSE 75; O2SAT 98; BMI 28.7
--- NOTE | 2023-08-04 07:46 | A.OFFPC_ITS ---
Vital Signs 08/04/23 07:46 Height 5 ft 4 in Weight 167 lb BMI 28.7 BP 118/70 Blood Pressure Location Lt brachial Position Sitting Pulse 75 Pulse Source Pulse Oximeter Pulse Oximetry (%) 98 Oxygen Delivery Method Room Air Intake Visit Reasons: Follow Up on Health Concerns Allergies No Known Allergies Allergy (Verified 08/04/23 07:47) Tobacco use date assessed: 08/04/23 Dental Screening Dental Screen Date: 08/04/23 Did you have a dental visit in the last 12 months?: Yes Did you have a dental problem in the last 6 months where you did not have access to dental care?: No Was dental information given to patient?: Patient has dentist HPI HPI Comments History of Present Illness Details 47-year-old female past medical history significant for GERD, fatty liver, s/p laparoscopic sleeve gastrectomy April 2022. Patient presents today for calf pain for 3 months. Patient reports ongoing left calf pain with occasional swelling. Patient reports that the pain is intermittent and when incontinence the pain is 10/10 deep squeezing pain in her calf. Patient reports she had a similar pain 12 years ago for which she was found to have a blood clot in leg. Patient denies calf pain on palpation negative Homans sign no noted swelling or any erythema at this time. [facility] Medical History Class 2 obesity with body mass index (BMI) of 37.0 to 37.9 in adult Candidal intertrigo Right foot pain Skin lesion Leukopenia BMI 35.0-35.9,adult Vitamin A deficiency Helicobacter pylori antibody positive Back pain Morbid obesity Surgical History (Updated 11/29/22 @ 10:10 by Jovanna Dickson CMA) Hx laparoscopic cholecystectomy S/P laparoscopic sleeve gastrectomy Hx of section Family History Mother Asthma Father No problems noted. Sister No problems noted. Sister No problems noted. Brother No problems noted. Brother No problems noted. Son No problems noted. Daughter No problems noted. Social History Housing: House Are you a primary child caregiver private home to a significant other at home: No Do you presently have visiting nurse or other home services: No Alcohol intake: never Patient Tobacco Use Status: Never used Tobacco e-Cigarette/Vaping Use: Never Used Second Hand Smoke Exposure: No service: No Current occupational status: employed Current occupational exposures/hazards: No Cognitive needs: No Hearing needs: No Vision needs: No Questionnaire PHQ-9 Over the last 2 weeks, how often have you been bothered by any of the following problems? 1. Little interest or pleasure in doing things: not at all 2. Feeling down, depressed, or hopeless: not at all 3. Trouble falling or staying asleep, or sleeping too much: not at all 4. Feeling tired or having little energy: not at all 5. Poor appetite or overeating: not at all 6. Feeling bad about yourself - or that you are a failure or have let yourself or your family down: not at all 7. Trouble concentrating on things, such as reading the newspaper or watching television: not at all 8. Moving or speaking so slowly that other people could have noticed. Or the opposite - being so fidgety or restless that you have been moving around a lot more than usual: not at all 9. Thoughts that you would be better off or of hurting yourself in some way: not at all Total score: 0 Depression Screening Interpretation: Negative Depression Screening Done: Yes Source: Developed by Drs. Papa Clark, Alley Aguilar, Stef Velazco and colleagues, with an educational gail from [email or web address]. Thrive Questionnaire Date Thrive assessed: 08/04/23 I am a: Patient What is your living situation today?: I have a steady place to live Within the past 12 months, did the food you bought not last and you didn't have the money to get more?: Never true Within the past 12 months, did you worry whether your food would run out before you got money to buy more?: Never true Do you have trouble paying for medicines?: No Do you have trouble getting transportation to medical appointments?: No Do you have trouble paying your heating and electricity bill?: No Do you have trouble taking care of your child, family member or friend?: No Do you have trouble with day-to-day activities such as bathing, preparing meals, shopping, managing finances, etc.?: No Are you currently unemployed and looking for a job?: No Are you interested in more education?: No Currently or been in a relationship where the following occur: no concerns reported AUDIT C Alcohol Use Questionnaire (AUDIT-C) 1. How often do you have a drink containing alcohol?: Never Total Score: 0 MILA-7 AMB Questionnaire MILA-7 Date MILA - 7 assessed: 08/04/23 Feeling nervous, anxious, or on edge: 0 = Not at all Not being able to stop or control worryin = Not at all Worrying too much about different things: 0 = Not at all Trouble relaxin = Not at all Being so restless that it is hard to sit still: 0 = Not at all Becoming easily annoyed or irritable: 0 = Not at all Feeling afraid as if something awful might happen: 0 = Not at all Total MILA-7 score (0-4 normal; 5-9 mild; 10-14 moderate; 15-21 severe): 0 Source: Developed by Drs. Papa Clark, Alley Aguilar, Stef Velazco and colleagues, with an educational gail from [email or web address]. Review of Systems Const Denies chills, Denies fatigue, Denies fever(s) and Denies poor appetite Eyes Denies no additional complaints ENT Reports Normal hearing present Card Denies chest pain, Denies syncope, Denies rapid heart rate and Denies dyspnea Resp Denies cough and Denies dyspnea GI Denies change in stool character, Denies constipation, Denies diarrhea, Denies nausea and Denies vomiting Denies urinary frequency, Denies dysuria and Denies urinary urgency Musc Reports muscle cramps (left calf pain ) Neuro Reports Normal hearing present, Denies confusion and Denies syncope Psych Denies confusion Endo Denies fatigue Physical exam (Primary Care) Vital Signs: Last Vital Signs Pulse 75 08/04/23 07:46 BP 118/70 08/04/23 07:46 Pulse Ox 98 08/04/23 07:46 Oxygen Delivery Method Room Air 08/04/23 07:46 BMI result Body Mass Index 28.7 Tobacco/Smoking Status: Tobacco use Status Tobacco use date assessed 08/04/23 08/04/23 07:49 Patient Tobacco Use Status Never used Tobacco 08/04/23 07:49 e-Cigarette/Vaping Use Never Used 08/04/23 07:49 PHQ-9: PHQ-9 Score PHQ-9: Total score 0 08/04/23 08:01 Depression Screening Interpretation: Negative Thrive Assessment: Date of Thrive Assessment Date Thrive assessed 08/04/23 08/04/23 07:49 Currently or been in a relationship where the following occur: no concerns reported Const General: No confusion Orientation/consciousness: No confusion HENMT Head: Yes normocephalic and Yes atraumatic Eyes Conjunctivae: conjunctivae normal Chest Chest palpation & inspection: normal inspection of the chest Resp Effort & Inspection: normal respiratory effort Auscultation: clear to auscultation bilaterally, no crackles, no rhonchi and no wheezes Cardio Rate: regular rate Rhythm: regular rhythm Heart sounds: S1 normal heart sound present and S2 normal heart sound present Peripheral pulses: dorsalis pedis present GI Inspection: Yes normal to inspection Neuro General: No confusion Cranial nerves: Yes Normal hearing present Extrem General: No edema Right lower extremity: normal to inspection and full ROM Left lower extremity: normal to inspection and lower leg (Left Calf noted;) Details: no erythema, no tenderness, no localized swelling and no unusual warmth Assessment and Plan Assessment & Plan (1) Pain of left calf: Code(s): M79.662 - Pain in left lower leg Plan: Given patient is experiencing intermittent left calf cramping with occasional swelling, patient has noted history of DVT 12 years ago. Venous Doppler ordered to rule out left leg DVT. (2) Left leg DVT: Code(s): I82.402 - Acute embolism and thrombosis of unspecified deep veins of left lower extremity Plan: Stat ultrasound ordered to rule out DVT. Plan Keep scheduled physical exam next month with PCP or follow-up sooner if needed. Orders: Orders Complete Blood Count Auto Diff Today Z13.0 - Encounter for screening for diseases of the blood and blood-forming organs and certain disorders involving the immune mechanism Comprehensive [place]. Panel Fast Today Z98.84 - Bariatric surgery status TSH reflex Free T4 Today Z13.29 - Encounter for screening for other suspected endocrine disorder Lipid Panel Today Z13.220 - Encounter for screening for lipoid disorders Vitamin D 25-OH Total Today Z13.21 - Encounter for screening for nutritional disorder US venous duplex LE LT Today I82.402 - Acute embolism and thrombosis of unspecified deep veins of left lower extremity Coding Level of Care Code Est Pt Level 3 (85977) Diagnoses Pain of left calf M79.662 Left leg DVT I82.402 Additional Codes PHQ-9 - 67466 - PHQ-9 Billing: ([id number])
== END ==
PROVIDERS: PCP Internal Medicine; Visit Provider Nurse Practitioner Family
DX: M79.662 Pain in left lower leg (principal); I82.402 Acute embolism and thrombosis of unspecified deep veins of left lower extremity
CPT/HCPCS: 99213

== ENCOUNTER 2023-08-04 08:15 | Outpatient (REF) | payer OTHER, SELFPAY ==
--- NOTE | ~2023-08-04 | US_ITS ---
EXAMINATION: US VENOUS ULTRASOUND WITH DOPPLER LOWER EXTREMITY, LEFT CLINICAL INFORMATION: Pain and swelling COMPARISON: None available. TECHNIQUE: Ultrasound of the deep veins is performed from the hip to the calf with compression sonography and color and pulse Doppler assessment. Spectral analysis with color-flow imaging is performed. FINDINGS: There is normal venous compression and respiratory variation and augmented flow. The visualized common femoral vein, superficial femoral vein, profunda femoral vein, popliteal vein, and the trifurcation region shows no evidence of deep venous thrombosis. There is no significant popliteal fossa cyst. If the patient's symptoms persist, followup ultrasound in 5 days 7 days might be of value to exclude proximal propagation from a non-visualized calf vein. US/US venous duplex LE LT IMPRESSION: No DVT demonstrated in the left lower extremity.
[2023-08-04 08:31] LABS: MANUAL DIFF FLAG NO
[2023-08-04 10:22] LABS: Basophils Percent Auto 0.6 % (0-2); Eosinophils Absolute Auto 0.1 X10*3/uL (0.0-0.4); Eosinophils Percent Auto 2.9 % (0-4); Hematocrit 38.1 % (37.0-47.0); Hemoglobin 12.5 g/dl (12.0-16.0); Lymphocytes Absolute Auto 1.7 X10*3/uL (1.2-4.9); Lymphocytes Percent Auto 52.4 % (20-40); Mean Corpuscular HGB Conc 32.8 g/dl (31.0-35.0); Mean Corpuscular Hemoglobin 30.6 pg (27.0-33.0); Mean Corpuscular Volume 93.2 fL (80.0-98.0); Mean Platelet Volume 10.1 fL (9.4-12.3); Monocytes Absolute Auto 0.3 X10*3/uL (0.1-1.2); Monocytes Percent Auto 8.9 % (2-11); Neutrophils Absolute Auto 1.1 x10*3/uL (2.0-8.3); Neutrophils Percent Auto 35.2 % (45-73); Platelet Count 255 X10*3/uL (160-400); Red Blood Count 4.09 X10*6/uL (4.20-5.50); Red Cell Distribution Width 12.7 % (11.0-16.0); White Blood Count 3.2 X10*3/uL (4.8-10.8)
[2023-08-04 11:05] LABS: Alanine Aminotransferase 14 U/L (0-31); Alkaline Phosphatase 78 U/L (39-117); Anion Gap 8 (12-20); Aspartate Amino Transferase 17 U/L (5-31); Bilirubin Total 0.4 mg/dL (0.0-1.0); Blood Urea Nitrogen 12 mg/dL (9-16); Carbon Dioxide 31 mmol/L (22-29); Chloride 107 mmol/L (96-108); Cholesterol 137 mg/dL (<200); Estimated Glomerular Filt Rate > 60; Glucose Fasting 88 mg/dL (60-99); HDL Cholesterol 37 mg/dL (>40); LDL Cholesterol Calculated 91 mg/dL (<100); Potassium 4.4 mmol/L (3.3-5.1); Sodium 142 mmol/L (135-145); Total Protein 7.1 g/dL (6.5-8.0); Triglycerides 46 mg/dL (<150)
[2023-08-04 11:30] LABS: TSH reflex Free T4 0.88 uIU/mL (0.32-4.0); Vitamin D 25-OH Total 46.5 ng/mL (>30)
== END 2023-08-04 08:16 | disposition home or self-care (01) ==
LOC: HO.LAB 08:15
PROVIDERS: PCP Internal Medicine; Visit Provider Nurse Practitioner Family
DX: Z13.29 Encounter for screening for other suspected endocrine disorder (principal); Z13.0 Encounter for screening for diseases of the blood and blood-forming organs and certain disorders involving the immune mechanism; Z13.220 Encounter for screening for lipoid disorders; Z13.21 Encounter for screening for nutritional disorder; I82.402 Acute embolism and thrombosis of unspecified deep veins of left lower extremity; Z98.84 Bariatric surgery status
CPT/HCPCS: 36415; 80053; 80061; 82306; 84443; 85025; 93971

== ENCOUNTER 2023-09-06 16:25 | Outpatient (AMB) | payer OTHER, SELFPAY ==
[2023-09-06 16:28] VITALS: BP 122/80; BMI 29.2
--- NOTE | 2023-09-06 16:28 | MHC.PC.OV ---
Vital Signs 09/06/23 16:28 Height 5 ft 4 in Weight 170 lb BMI 29.2 BP 122/80 Blood Pressure Location Lt brachial Position Sitting Intake Visit Reasons: Annual Exam Intake Note: Patient here for an annual physical exam Sales And Events Coordinator Required: No Accompanied by: Self / Same As Patient Allergies No Known Allergies Allergy (Verified 09/06/23 16:40) Medication List - Last Reconciled 09/06/23 by Zehra Linton MD No Known Home Meds Tobacco use date assessed: 08/04/23 Dental Screening Dental Screen Date: 09/06/23 Did you have a dental visit in the last 12 months?: Yes Did you have a dental problem in the last 6 months where you did not have access to dental care?: No Was dental information given to patient?: Patient has dentist HPI HPI Comments History of Present Illness Details This is a 47-year-old female that comes for her physical exam. Last mammogram was 2022. Last Pap smear was 2022 at [facility]. Results not available. Has never had a colonoscopy and would prefer Cologuard. No chest pain or shortness of breath. Complains of foot pain bilateral and does see tile picker for this matter. [facility] Medical History (Updated 09/06/23 @ 16:51 by Zehra Linton MD) Leukopenia Class 2 obesity with body mass index (BMI) of 37.0 to 37.9 in adult Candidal intertrigo Right foot pain Skin lesion BMI 35.0-35.9,adult Vitamin A deficiency Helicobacter pylori antibody positive Back pain Morbid obesity Surgical History Hx laparoscopic cholecystectomy S/P laparoscopic sleeve gastrectomy Hx of section Family History Mother Asthma Father No problems noted. Sister No problems noted. Sister No problems noted. Brother No problems noted. Brother No problems noted. Son No problems noted. Daughter No problems noted. Social History Housing: House Are you a primary day care assistant to a significant other at home: No Do you presently have visiting nurse or other home services: No Alcohol intake: never Patient Tobacco Use Status: Never used Tobacco e-Cigarette/Vaping Use: Never Used Second Hand Smoke Exposure: No service: No Current occupational status: employed Current occupational exposures/hazards: No Cognitive needs: No Hearing needs: No Vision needs: No Questionnaire Thrive Questionnaire Date Thrive assessed: 08/04/23 MILA-7 AMB Questionnaire MILA-7 Date MILA - 7 assessed: 08/04/23 Source: Developed by Drs. Papa Clark, Alley Aguilar, Stef Velazco and colleagues, with an educational gail from [employer]. Review of Systems Const All systems reviewed & are unremarkable except as noted in HPI and below Eyes Reports no additional complaints, Denies change in vision and Denies other visual disturbances Card Denies chest pain at rest, Denies chest pain with activity, Denies edema, Denies irregular heart rhythm, Denies claudication, Denies dyspnea, Denies dyspnea on exertion, Denies orthopnea, Denies paroxysmal nocturnal dyspnea and Denies slow heart rate Resp Denies cough, Denies dyspnea and Denies dyspnea on exertion GI Denies abdominal pain, Denies change in bowel habits, Denies excessive flatus, Denies nausea and Denies vomiting Denies urinary incontinence, Denies urinary hesitancy and Denies urinary urgency Musc Denies abnormal gait, Denies atrophy, Denies deformity and Denies limited range of motion Skin/Breast Denies bleeding lesions, Denies changing lesions and Denies rash Neuro Denies abnormal gait, Denies behavioral changes, Denies confusion and Denies lack of coordination Psych Denies behavioral changes and Denies confusion Physical exam (Primary Care) Vital Signs: Last Vital Signs BP 122/80 09/06/23 16:28 BMI result Body Mass Index 29.2 Tobacco/Smoking Status: Tobacco use Status Tobacco use date assessed 08/04/23 09/06/23 16:33 Patient Tobacco Use Status Never used Tobacco 09/06/23 16:33 e-Cigarette/Vaping Use Never Used 09/06/23 16:33 Thrive Assessment: Date of Thrive Assessment Date Thrive assessed 08/04/23 09/06/23 16:33 Const General: No confusion Orientation/consciousness: patient oriented x3 and No confusion HENMT Head: Yes normal to inspection, Yes normocephalic and Yes atraumatic Ears: external ears normal Eyes General: appearance normal, both eyes and all related structures Eyelids: Yes eyelids normal Conjunctivae: conjunctivae normal Neck Neck: Yes normal visual inspection and Yes supple Resp Effort & Inspection: normal respiratory effort Auscultation: clear to auscultation bilaterally Cardio Jugular venous distension: no JVD Rate: regular rate Rhythm: regular rhythm Heart sounds: S1 normal heart sound present and S2 normal heart sound present GI Inspection: Yes normal to inspection Palpation (GI): Soft to palpation and nontender Auscultation: normal bowel sounds Skin General skin exam: no rashes or lesions noted Neuro General: patient oriented x3, no focal motor deficits and No confusion Extrem General: Yes full ROM Psych Appearance: grossly normal Office Procedures Flu Questionnaire Does the patient have a severe egg allergy?: No Immunizations flu vacc [id number] 6mos up(PF) 60 mcg(15 mcgx4)/0.5 mL IM syringe Performing Provider: Zehra Linton MD [facility] Documented (not given) by: KATIE Zazueta on 09/06/23 16:51 Reason Not Given: Patient Refused Assessment and Plan Assessment & Plan (1) Physical exam: Code(s): Z00.00 - Encounter for general adult medical examination without abnormal findings Plan: Repeat in a year. Orders: Orders Influenza [id number] Immunization Today Z23 - Encounter for immunization Referrals Cologuard Test Z12.11 - Encounter for screening for malignant neoplasm of colon, Z12.12 - Encounter for screening for malignant neoplasm of rectum Hematology & Oncology Referral D72.819 - Decreased white blood cell count, unspecified Pain Management Referral M79.605 - Pain in left leg Coding Level of Care Code Est Pt Prev Care 40-64y(49019) Diagnoses Physical exam Z00.00 Time Spent (min) 33
== END 2023-09-06 16:53 | disposition home or self-care (01) ==
PROVIDERS: Visit Provider Internal Medicine
DX: Z00.00 Encounter for general adult medical examination without abnormal findings (principal)
CPT/HCPCS: 99396

== ENCOUNTER 2023-10-09 11:38 | Emergency (ER) | payer OTHER, SELFPAY ==
--- NOTE | ~2023-10-09 | CT_ITS ---
EXAMINATION: CT HEAD WITHOUT CONTRAST CLINICAL INFORMATION: Fall pain COMPARISON: None TECHNIQUE: Contiguous axial imaging was performed from the skull base to vertex without intravenous administration of contrast. This CT examination was performed using dose optimization techniques as appropriate, variously including the following: *Automated exposure control *Adjustment of mA and/or kV according to patient size (this includes techniques or standardized protocols for targeted exams where dose is matched to indication/reason for exam; i.e. extremities or head) *Use of iterative reconstruction technique DLP: 965 mGy-cm FINDINGS: There is no evidence of acute intracranial hemorrhage or territorial infarction. No abnormal mass effect or midline shift is seen. Perez to white matter differentiation is well preserved. No extra-axial fluid collections are identified. The ventricles are normal in size. There is no abnormal attenuation within the brain parenchyma. The osseous structures and soft tissues are normal. The mastoid air cells and visualized portions of the paranasal sinuses are well aerated. CT/CT cervical spine wo IV con IMPRESSION: No acute intracranial pathology. EXAMINATION: Noncontrast CT scan of the cervical spine. INDICATION: Fall pain COMPARISON: None. TECHNIQUE: Helical, multidetector axial images were obtained from the occiput to the upper thorax. Coronal and sagittal reformats of the cervical spine were provided for interpretation. DLP: 965 mGy-cm FINDINGS: No acute fractures or dislocations of the cervical spine are seen. Straightening with slight reversal of normal cervical curvature which may be secondary to patient positioning versus muscle spasm. Multilevel degenerative changes. Anatomic alignment and positioning of the vertebral bodies and posterior elements is noted. The atlantoaxial joint and craniovertebral articulations are normal without evidence of subluxation. There is no prevertebral soft tissue swelling. The thyroid gland and visualized portions of the lung apices and mediastinum are unremarkable. IMPRESSION: 1. No acute visible fracture or dislocation. 2. Straightening with slight reversal of normal cervical curvature which may be secondary to patient positioning versus muscle spasm. 3. Multilevel degenerative changes.
[2023-10-09 11:46] VITALS: BP 130/79; PULSE 60; RESP 18; TEMP 36.6; O2SAT 99; BMI 28.0
--- NOTE | 2023-10-09 11:46 | ED_ITS ---
HPI - General Adult General Chief complaint: Syncope Stated complaint: Syncope yest/Dizziness Time Seen by Provider: 10/09/23 21:37 Source: patient and old records reviewed Mode of arrival: ambulatory Limitations: no limitations History of Present Illness HPI narrative: 47 yo female with PMH of GERD abnormal EKG, LVH, s/p gastric sleeve, back pain, not on OCPs here with c/o syncopal event walking back from bathroom Monday - she fell hit back of head and woke up on the floor. Unsure of LOC. She felt weak and dizzy on Monday. No CP/SOB. No seizure history and was not confused remembers waking up. She does not remember feeling dizzy. She has no fam hx of sudden cardiac and no hx of syncope. She denies GIB symptoms. She has a headache still but is more worried to be at home and pass out again. MD complaint: syncope Onset (ago): day(s) (1) Location: head Radiation: non-radiation Severity: moderate Relieving factors: none Exacerbating factors: none Associated symptoms: other (did hit head) Treatments prior to arrival: none Related Data Home Medications Medication Instructions Recorded Confirmed No Known Home Meds 08/04/23 09/06/23 Allergies Allergy/AdvReac Type Severity Reaction Status Date / Time No Known Allergies Allergy Verified 10/09/23 11:46 Review of Systems 2 Review of Systems: Constitutional : No Fever, No Chills, No Fatigue ENT/Mouth : No sore throat, No Rhinorrhea Eyes: No Eye Pain, No Swelling, No Redness Cardiovascular : No Chest Pain, No SOB, No Dyspnea on Exertion Respiratory : No Cough, No Sputum Gastrointestinal : No Nausea, No Vomiting, No Diarrhea, No abdominal Pain Genitourinary : No Dysuria, No Urinary Frequency, No Hematuria, Musculoskeletal : No joint pain, No Myalgias, No Joint Swelling Skin : No Skin Lesions, No rash Neuro : No Weakness, No Numbness, No Dizziness, no Headache, pos syncope Psych : No Anxiety/Panic, No Depression Heme/Lymph: No Bruising, No Bleeding,No Lymphadenopathy Endocrine : No Polyuria, No Polydipsia All other systems reviewed and are negative PMFSH Past Medical History Attestation statement: The following information was validated with the patient. Source: old records reviewed Onset Date is defined in the Problem List Problems that require an onset date and time if occurred within 24 hrs of arrival to the ED Aortic Dissection and Rupture; Neurologic impairment; Cardiopulmonary Arrest; Endotracheal Intubation; Insertion or Replacement of Mechanical Circulatory Assist Device Medical History Leukopenia Class 2 obesity with body mass index (BMI) of 37.0 to 37.9 in adult Candidal intertrigo Right foot pain Skin lesion BMI 35.0-35.9,adult Vitamin A deficiency Helicobacter pylori antibody positive Back pain Morbid obesity Surgical History Hx laparoscopic cholecystectomy S/P laparoscopic sleeve gastrectomy Hx of section Family History Family History Mother Asthma Father No problems noted. Sister No problems noted. Sister No problems noted. Brother No problems noted. Brother No problems noted. Son No problems noted. Daughter No problems noted. Social History Social History Housing: House Are you a primary care aide to a significant other at home: No Do you presently have visiting nurse or other home services: No Alcohol intake: never Patient Tobacco Use Status: Never used Tobacco e-Cigarette/Vaping Use: Never Used Second Hand Smoke Exposure: No Advance Directives: No Advance Directives Information Provided: No service: No Current occupational status: employed Current occupational exposures/hazards: No Cognitive needs: No Hearing needs: No Vision needs: No Physical Exam ED Vital Signs: Vital Signs - 24 hr 10/09/23 11:46 10/09/23 16:16 10/09/23 21:40 Temperature 98 F 96.8 F 97.9 F Pulse Rate 60 77 61 Respiratory Rate 18 16 16 Blood Pressure 130/79 125/57 L 118/61 Pulse Oximetry 99 100 97 Oxygen Delivery Method Room Air Room Air Room Air 10/09/23 22:29 10/09/23 22:30 10/09/23 22:30 Temperature Pulse Rate 68 73 87 Respiratory Rate Blood Pressure 105/57 L 115/76 95/55 L Pulse Oximetry Oxygen Delivery Method BMI result Body Mass Index 28.0 Appearance: Alert. Oriented X3. No acute distress. Eyes: Pupils equal, round and reactive to light. ENT: Pharynx normal. Neck: Normal inspection. Neck supple. CVS: Normal heart rate and rhythm. Pulses normal. Respiratory: No respiratory distress. Breath sounds normal. Abdomen: Soft and nontender. Skin: Skin warm and dry. Normal skin color. Normal skin turgor. Extremities: No lower extremity edema. No calf ttp Neuro: Oriented X 3. No motor deficit. No sensory deficit. Course Course Course Narrative: RME performed by Amisha Cuellar PA-C. Patient is a 47 year old assigned female at presenting to the emergency department after a syncopal episode. Patient states that she hit her head. Detailed physical exam and review of systems are deferred to the fiber machine tender. Labs, imaging, and swabs ordered. Patient placed back in the waiting room pending room availability and results. Reevaluation(s) Reevaluation #1: + ortho VS - 2L of IVF ordered Medications Administered Generic Name Dose Route Start Last Admin Trade Name Freq PRN Reason Stop Dose Admin Sodium Chloride 1,000 mls @ 999 mls/hr 10/09/23 22:45 10/09/23 22:44 Ns IV 10/09/23 23:45 999 mls/hr .Q1H1M SALUD Administration Sodium Chloride 1,000 mls @ 999 mls/hr 10/09/23 22:45 10/09/23 22:44 Ns IV 10/09/23 23:45 999 mls/hr .Q1H1M SALUD Administration Medical Decision Making Medical Decision Making [facility] Narrative: 47 yo female with PMH of GERD abnormal EKG, LVH, s/p gastric sleeve, back pain, not on OCPs with syncope while standing on Monday after getting up to use bathroom and walking back - did hit head has mild headache CT head and cspine done from triage are negative, had some dizziness and felt weak the day before will obtain labs, ortho VS and troponin ddimer. She is not toxic appearing no CP/SOB no GIB symptoms no hx of syncope and no fam hx of SCD. If negative will refer to PCP for holter monitor Differential Diagnosis Differential Diagnoses: The differential diagnosis associated with the presentation includes dehydration, anemia, orthostatic hypotension Admission/Observation Consideration of admission/observation: Escalation of care including admission/observation considered 24 hours ago - work up negative responded to fluids stable for DC Lab Data [facility] Lab Attestation statement: I reviewed the patient's lab results. 10/09/23 12:04 10/09/23 12:04 Labs: Lab Results 10/09/23 10/09/23 10/09/23 Range/Units 12:03 12:04 17:50 WBC 2.6 L (4.8-10.8) X10*3/uL RBC 4.22 (4.20-5.50) X10*6/uL Hgb 13.0 (12.0-16.0) g/dl Hct 38.4 (37.0-47.0) % MCV 91.0 (80.0-98.0) fL MCH 30.8 (27.0-33.0) pg MCHC 33.9 (31.0-35.0) g/dl RDW 12.6 (11.0-16.0) % Plt Count 266 (160-400) X10*3/uL MPV 9.0 L (9.4-12.3) fL Immature Gran % (Auto) 0.0 (0.0-0.4) % Neut % (Auto) 37.1 L (45-73) % Lymph % (Auto) 50.6 H (20-40) % Saunders % (Auto) 9.6 (2-11) % Eos % (Auto) 2.3 (0-4) % Baso % (Auto) 0.4 (0-2) % Lymph # (Auto) 1.3 (1.2-4.9) X10*3/uL Saunders # (Auto) 0.3 (0.1-1.2) X10*3/uL Eos # (Auto) 0.1 (0.0-0.4) X10*3/uL Baso # (Auto) 0.0 (0.0-0.2) X10*3/uL Abs Immat Gran (auto) 0.00 (0.00-0.03) X10*3/uL Absolute Neuts (auto) 1.0 L (2.0-8.3) x10*3/uL Absolute Nucleated RBC 0.000 (0.0-0.012) X10*3/uL Nucleated RBC % (auto) 0.0 (0.0-0.2) /100WBC Smear Tech's Comments VERIFIED D-Dimer High Sensitivty NG/ML Sodium 143 (135-145) mmol/L Potassium 4.0 (3.3-5.1) mmol/L Chloride 104 (96-108) mmol/L Carbon Dioxide 30 H (22-29) mmol/L Anion Gap 13 (12-20) BUN 13 (9-16) mg/dL Creatinine 0.75 (0.5-1.4) mg/dL Estim Creat Clear Calc 95.6 Estimated GFR > 60 Random Glucose 89 (60-115) mg/dL Calcium 9.1 (8.4-10.2) mg/dL Magnesium 2.0 (1.6-2.6) mg/dL Total Bilirubin 0.4 (0.0-1.0) mg/dL AST 15 (5-31) U/L ALT 16 (0-31) U/L Alkaline Phosphatase 82 (39-117) U/L Troponin I High Sens (<3.5-17.0) ng/L Total Protein 7.2 (6.5-8.0) g/dL Albumin 4.0 (3.5-5.0) g/dL Beta HCG, Quant < 2 mIU/mL Urine Color Yellow Urine Appearance Clear Urine pH 6.5 (5.0-9.0) Ur Specific [place] 1.015 (1.005-1.025) Urine Protein Negative (Neg-Trace) mg/dL Urine Glucose (UA) Negative (Negative) mg/dL Urine Ketones Negative (Negative) mg/dL Urine Blood Small (1+) H (Negative) Urine Nitrite Negative (Negative) Ur Leukocyte Esterase Negative (Negative) Urine RBC 0-2 (0-2) /HPF Urine WBC 0-5 (0-5) /HPF Ur Squamous Epith Cells 0-2 (0-2) /HPF Urine Bacteria None Seen (None Seen) Hyaline Casts 0-2 (0-2) /LPF COVID-19 ([facility]) Negative (Negative) COVID-19 Clin Com See Note Influenza Type A (SOFI) Negative (Negative) Influenza Type B (SOFI) Negative (Negative) Influenza A & B Note See Note 10/09/23 Range/Units 22:27 WBC (4.8-10.8) X10*3/uL RBC (4.20-5.50) X10*6/uL Hgb (12.0-16.0) g/dl Hct (37.0-47.0) % MCV (80.0-98.0) fL MCH (27.0-33.0) pg MCHC (31.0-35.0) g/dl RDW (11.0-16.0) % Plt Count (160-400) X10*3/uL MPV (9.4-12.3) fL Immature Gran % (Auto) (0.0-0.4) % Neut % (Auto) (45-73) % Lymph % (Auto) (20-40) % Saunders % (Auto) (2-11) % Eos % (Auto) (0-4) % Baso % (Auto) (0-2) % Lymph # (Auto) (1.2-4.9) X10*3/uL Saunders # (Auto) (0.1-1.2) X10*3/uL Eos # (Auto) (0.0-0.4) X10*3/uL Baso # (Auto) (0.0-0.2) X10*3/uL Abs Immat Gran (auto) (0.00-0.03) X10*3/uL Absolute Neuts (auto) (2.0-8.3) x10*3/uL Absolute Nucleated RBC (0.0-0.012) X10*3/uL Nucleated RBC % (auto) (0.0-0.2) /100WBC Smear Tech's Comments D-Dimer High Sensitivty < 150 NG/ML Sodium (135-145) mmol/L Potassium (3.3-5.1) mmol/L Chloride (96-108) mmol/L Carbon Dioxide (22-29) mmol/L Anion Gap (12-20) BUN (9-16) mg/dL Creatinine (0.5-1.4) mg/dL Estim Creat Clear Calc Estimated GFR Random Glucose (60-115) mg/dL Calcium (8.4-10.2) mg/dL Magnesium (1.6-2.6) mg/dL Total Bilirubin (0.0-1.0) mg/dL AST (5-31) U/L ALT (0-31) U/L Alkaline Phosphatase (39-117) U/L Troponin I High Sens < 2.7 (<3.5-17.0) ng/L Total Protein (6.5-8.0) g/dL Albumin (3.5-5.0) g/dL Beta HCG, Quant mIU/mL Urine Color Urine Appearance Urine pH (5.0-9.0) Ur Specific [place] (1.005-1.025) Urine Protein (Neg-Trace) mg/dL Urine Glucose (UA) (Negative) mg/dL Urine Ketones (Negative) mg/dL Urine Blood (Negative) Urine Nitrite (Negative) Ur Leukocyte Esterase (Negative) Urine RBC (0-2) /HPF Urine WBC (0-5) /HPF Ur Squamous Epith Cells (0-2) /HPF Urine Bacteria (None Seen) Hyaline Casts (0-2) /LPF COVID-19 ([facility]) (Negative) COVID-19 Clin Com Influenza Type A (SOFI) (Negative) Influenza Type B (SOFI) (Negative) Influenza A & B Note Independent Interpretation I performed an independent interpretation of an: EKG and CT Scan (no trauma) Interpretation: Rate: 56 Rhythm: sinus bradycardia [place]: normal Normal P waves. Normal AMBAR. Normal QRS complex. ST T wave : no SAMANTHA inverted t waves III and V1 qTC: normal 395 prior studies: no acute ischemia The study has been interpreted contemporaneously by me. . Radiology Impression Discussion of test interpretation with radiology: I have reviewed the radiologist's reading. Independent Historian Clinical information obtained from an independent historian. History obtained from or confirmed by: Other (family) External Record Review External record reviewed: Inpatient record Discharge Plan Discharge Clinical Impression: Orthostatic hypotension, Syncope Patient Disposition: Home, Self-Care Instructions: Syncope (ED), Hypotension (ED) Additional Instructions: EKG, heart tests, kidney function, basic labs and test for blood clot normal CT scans no acute trauma given 2L of fluids for drop in blood pressure. at this time take your time getting up. return for worsening symptoms, dizziness, chest pain, difficulty breathing. follow up with your doctor for a holter monitor. Prescriptions: No Action No Known Home Meds
--- NOTE | 2023-10-09 11:47 | ECG_ITS ---
Test Reason : syncope Blood Pressure : / mmHG Vent. Rate : 056 BPM Atrial Rate : 056 BPM P-R Int : 160 ms QRS Dur : 074 ms QT Int : 410 ms P-R-T Axes : 033 -02 023 degrees QTc Int : 395 ms Sinus bradycardia Low voltage QRS Cannot rule out Anterior infarct (cited on or before 09-OCT-2023) Abnormal ECG When compared with ECG of 30-OCT-2022 22:05, No significant change was found Referred By: Amisha Cuellar Electronically Signed By:Germán Sanders
[2023-10-09 12:16] LABS: Basophils Percent Auto 0.4 % (0-2); Eosinophils Absolute Auto 0.1 X10*3/uL (0.0-0.4); Eosinophils Percent Auto 2.3 % (0-4); Hematocrit 38.4 % (37.0-47.0); Lymphocytes Absolute Auto 1.3 X10*3/uL (1.2-4.9); Lymphocytes Percent Auto 50.6 % (20-40); MANUAL DIFF FLAG SCAN; Mean Corpuscular HGB Conc 33.9 g/dl (31.0-35.0); Mean Corpuscular Hemoglobin 30.8 pg (27.0-33.0); Monocytes Absolute Auto 0.3 X10*3/uL (0.1-1.2); Monocytes Percent Auto 9.6 % (2-11); Neutrophils Percent Auto 37.1 % (45-73); Platelet Count 266 X10*3/uL (160-400); Red Blood Count 4.22 X10*6/uL (4.20-5.50); Red Cell Distribution Width 12.6 % (11.0-16.0); SCAN SMEAR FLAG 1
[2023-10-09 12:25] LABS: Alanine Aminotransferase 16 U/L (0-31); Alkaline Phosphatase 82 U/L (39-117); Anion Gap 13 (12-20); Aspartate Amino Transferase 15 U/L (5-31); Bilirubin Total 0.4 mg/dL (0.0-1.0); Blood Urea Nitrogen 13 mg/dL (9-16); Calcium 9.1 mg/dL (8.4-10.2); Carbon Dioxide 30 mmol/L (22-29); Chloride 104 mmol/L (96-108); Creatinine Clr Calc Pharmacy 95.6; Estimated Glomerular Filt Rate > 60; Glucose Random 89 mg/dL (60-115); Sodium 143 mmol/L (135-145); Total Protein 7.2 g/dL (6.5-8.0)
[2023-10-09 12:48] LABS: COVID-19 Test Negative (Negative); IDNOW Serial# 152EDE1D
[2023-10-09 12:52] LABS: IDNOW Serial# 58CA691E; Influenza A Negative (Negative); Influenza B2 Negative (Negative)
[2023-10-09 13:00] LABS: SLIDE REVIEW VERIFIED; White Blood Count 2.6 X10*3/uL (4.8-10.8)
[2023-10-09 16:16] VITALS: BP 125/57; PULSE 77; RESP 16; TEMP 36; O2SAT 100
--- NOTE | 2023-10-09 16:19 | PC.NURSE ---
pt declined tylenol on triage reassessment.
[2023-10-09 18:06] LABS: Appearance Urine Clear; Color Urine Yellow; Glucose Urine UA Negative (Negative); Leukocyte Esterase Urine Negative (Negative); Nitrite Urine Negative (Negative); PH 6.5 (5.0-9.0); Specific Gravity - Urine 1.015 (1.005-1.025); UMIC TRIGGER UACC YES; Urine Blood Small (1+) (Negative); Urine Ketones Negative (Negative); Urine Protein Negative (Neg-Trace)
[2023-10-09 18:16] LABS: Bacteria Urine None Seen (None Seen); Hyaline Casts Urine 0-2 /LPF (0-2); RBC Urine 0-2 /HPF (0-2); Squamous Epithelial Cell Urine 0-2 /HPF (0-2); WBC Urine 0-5 /HPF (0-5)
[2023-10-09 21:40] VITALS: BP 118/61; PULSE 61; RESP 16; TEMP 36.6; O2SAT 97
[2023-10-09 22:15] LABS: HCG Quantitative < 2 mIU/mL
[2023-10-09 22:29] VITALS: BP 105/57; PULSE 68
[2023-10-09 22:30] VITALS: BP 115/76; BP 95/55; PULSE 73; PULSE 87
[2023-10-09] MEDS: 0.9 % Sodium Chloride 1,000 ML 999 ML IV ×2 (22:44)
[2023-10-09 22:53] LABS: D Dimer High Sensitivity < 150 NG/ML; Troponin-I High Sensitivity < 2.7 ng/L (<3.5-17.0)
--- NOTE | 2023-10-09 23:30 | PC.NURSE ---
iv placed 20 g L AC pt tolerated well pt medicated according to mar
[2023-10-10] VITALS: BP 124/65; PULSE 73; RESP 16; TEMP 36.7; O2SAT 97
== END 2023-10-10 00:20 | disposition home or self-care (01) ==
PROVIDERS: Physician Assistant Medical; Emergency Provider Emergency Medicine; PCP Internal Medicine
DX: I95.1 Orthostatic hypotension (principal); R55 Syncope and collapse; Z11.52 Encounter for screening for COVID-19; Z98.84 Bariatric surgery status
CPT/HCPCS: 36415; 70450; 72125; 80053; 81001; 83735; 84484; 84702; 85025; 85379; 87502; 87635; 93005; 96360; 99284; 99285

== ENCOUNTER → 2023-10-09 11:47 | Outpatient (BNV) | payer OTHER, SELFPAY | PROVIDERS: PCP Internal Medicine; Visit Provider Internal Medicine Cardiovascular Disease | DX: R00.1 Bradycardia, unspecified (principal); R94.31 Abnormal electrocardiogram [ECG] [EKG] | CPT/HCPCS: 93010 ==

== ENCOUNTER 2023-11-29 13:45 | Outpatient (AMB) | payer OTHER, SELFPAY ==
[2023-11-29 13:55] VITALS: BP 120/80; BMI 28.8
--- NOTE | 2023-11-29 13:55 | A.OFFPC_ITS ---
Vital Signs 11/29/23 13:55 Height 5 ft 5 in Weight 173 lb BMI 28.8 BP 120/80 Blood Pressure Location Lt brachial Position Sitting Intake Visit Reasons: Follow Up Intake Note: Patient here for a follow up [facility] [place] ED Manager Treasury Required: No Accompanied by: Self / Same As Patient Allergies No Known Allergies Allergy (Verified 11/29/23 14:12) Medication List - Last Reconciled 11/29/23 by Zehra Linton MD No Known Home Meds Tobacco use date assessed: 11/29/23 Dental Screening Dental Screen Date: 11/29/23 Did you have a dental visit in the last 12 months?: Yes Did you have a dental problem in the last 6 months where you did not have access to dental care?: No Was dental information given to patient?: Patient has dentist HPI HPI Comments History of Present Illness Details This is a 48-year-old female that had a syncopal episode 2 months ago in which she lost consciousness. Denies any bowel or bladder incontinence. Has no witness. Went to ER today after and had his CT an EKG. Head CT was negative EKG shows sinus bradycardia. Holter monitor and echocardiogram will be order. She also has an allergic reaction that happens occasionally in which she developed a rash out of no where. RAST was order. She also complains of upper back pain most likely due to macromastia and will like to be referred to Plastic surgery. She also complains of back pain and was referred to pain management in August but has not heard anything from them. [facility] Medical History (Updated 11/29/23 @ 14:33 by Zehra Linton MD) Mild single current episode of major depressive disorder Leukopenia Class 2 obesity with body mass index (BMI) of 37.0 to 37.9 in adult Candidal intertrigo Right foot pain Skin lesion BMI 35.0-35.9,adult Vitamin A deficiency Helicobacter pylori antibody positive Back pain Morbid obesity Surgical History Hx laparoscopic cholecystectomy S/P laparoscopic sleeve gastrectomy Hx of section Family History Mother Asthma Father No problems noted. Sister No problems noted. Sister No problems noted. Brother No problems noted. Brother No problems noted. Son No problems noted. Daughter No problems noted. Social History Housing: House Are you a primary rn long term care to a significant other at home: No Do you presently have visiting nurse or other home services: No Alcohol intake: never Patient Tobacco Use Status: Never used Tobacco e-Cigarette/Vaping Use: Never Used Second Hand Smoke Exposure: No service: No Current occupational status: employed Current occupational exposures/hazards: No Cognitive needs: No Hearing needs: No Vision needs: No Questionnaire PHQ-9 Over the last 2 weeks, how often have you been bothered by any of the following problems? 1. Little interest or pleasure in doing things: not at all 2. Feeling down, depressed, or hopeless: not at all 3. Trouble falling or staying asleep, or sleeping too much: not at all 4. Feeling tired or having little energy: not at all 5. Poor appetite or overeating: not at all 6. Feeling bad about yourself - or that you are a failure or have let yourself or your family down: not at all 7. Trouble concentrating on things, such as reading the newspaper or watching television: not at all 8. Moving or speaking so slowly that other people could have noticed. Or the opposite - being so fidgety or restless that you have been moving around a lot more than usual: not at all 9. Thoughts that you would be better off or of hurting yourself in some way: not at all Total score: 0 Depression Screening Interpretation: Negative Depression Screening Done: Yes 35112 - PHQ-9 Billing: Yes Source: Developed by Drs. Papa Clark, Alley Aguilar, Stef Velazco and colleagues, with an educational gail from [employer]. Thrive Questionnaire Date Thrive assessed: 11/29/23 I am a: Patient What is your living situation today?: I have a steady place to live Within the past 12 months, did the food you bought not last and you didn't have the money to get more?: Never true Within the past 12 months, did you worry whether your food would run out before you got money to buy more?: Never true Do you have trouble paying for medicines?: No Do you have trouble getting transportation to medical appointments?: No Do you have trouble paying your heating and electricity bill?: No Do you have trouble taking care of your child, family member or friend?: No Do you have trouble with day-to-day activities such as bathing, preparing meals, shopping, managing finances, etc.?: No Are you currently unemployed and looking for a job?: No Are you interested in more education?: No Please select the resources that you would like help with: None Currently or been in a relationship where the following occur: no concerns reported THRIVE Score: 0 AUDIT C Alcohol Use Questionnaire (AUDIT-C) 1. How often do you have a drink containing alcohol?: Never Total Score: 0 MILA-7 AMB Questionnaire MILA-7 Date MILA - 7 assessed: 11/29/23 Feeling nervous, anxious, or on edge: 0 = Not at all Not being able to stop or control worryin = Not at all Worrying too much about different things: 0 = Not at all Trouble relaxin = Not at all Being so restless that it is hard to sit still: 0 = Not at all Becoming easily annoyed or irritable: 0 = Not at all Feeling afraid as if something awful might happen: 0 = Not at all Total MILA-7 score (0-4 normal; 5-9 mild; 10-14 moderate; 15-21 severe): 0 Source: Developed by Drs. Papa Clark, Alley Aguilar, Stef Velazco and colleagues, with an educational gail from [employer]. MILA-7 Assessment Billing MILA-7 Assessment Tool: MILA-7 Assessment 82814 Review of Systems Const All systems reviewed & are unremarkable except as noted in HPI and below Eyes Reports no additional complaints, Denies change in vision and Denies other visual disturbances Card Denies chest pain at rest, Denies chest pain with activity, Denies edema, Denies irregular heart rhythm, Denies claudication, Denies dyspnea, Denies dyspnea on exertion, Denies orthopnea, Denies paroxysmal nocturnal dyspnea and Denies slow heart rate Resp Denies cough, Denies dyspnea and Denies dyspnea on exertion GI Denies abdominal pain, Denies change in bowel habits, Denies excessive flatus, Denies nausea and Denies vomiting Denies urinary incontinence, Denies urinary hesitancy and Denies urinary urgency Musc Denies abnormal gait, Denies atrophy, Denies deformity and Denies limited range of motion Skin/Breast Denies bleeding lesions, Denies changing lesions and Denies rash Neuro Denies abnormal gait, Denies behavioral changes and Denies lack of coordination Psych Denies behavioral changes Physical exam (Primary Care) Vital Signs: Last Vital Signs BP 120/80 11/29/23 13:55 BMI result Body Mass Index 28.8 Tobacco/Smoking Status: Tobacco use Status Tobacco use date assessed 11/29/23 11/29/23 14:03 Patient Tobacco Use Status Never used Tobacco 11/29/23 14:03 e-Cigarette/Vaping Use Never Used 11/29/23 14:03 PHQ-9: PHQ-9 Score PHQ-9: Total score 0 11/29/23 14:03 Depression Screening Interpretation: Negative Thrive Assessment: Date of Thrive Assessment Date Thrive assessed 11/29/23 11/29/23 14:03 Currently or been in a relationship where the following occur: no concerns reported Eyes General: appearance normal, both eyes and all related structures Eyelids: Yes eyelids normal Conjunctivae: conjunctivae normal Neck Neck: Yes normal visual inspection and Yes supple Resp Effort & Inspection: normal respiratory effort Auscultation: clear to auscultation bilaterally Cardio Jugular venous distension: no JVD Rate: regular rate Rhythm: regular rhythm Heart sounds: S1 normal heart sound present, S2 normal heart sound present and Murmur heart sound present Extrem General: Yes full ROM Assessment and Plan Assessment & Plan (1) Allergic reaction: Code(s): T78.40XA - Allergy, unspecified, initial encounter Plan: RAST test ordered. (2) Macromastia: Code(s): N62 - Hypertrophy of breast Plan: Referred to Plastic surgery. (3) Back pain: Code(s): M54.9 - Dorsalgia, unspecified Plan: Referred to pain management again. (4) Syncope: Code(s): R55 - Syncope and collapse Plan: Holter monitor and echocardiogram ordered. Orders: Orders ECG holter monitor 24 hour Today R00.1 - Bradycardia, unspecified, R55 - Syncope and collapse CA echo transthoracic complete Today I51.7 - Cardiomegaly, R01.1 - Cardiac murmur, unspecified, R55 - Syncope and collapse Rast Allergen Today T78.40XA - Allergy, unspecified, initial encounter Referrals Plastic Surgery Referral N62 - Hypertrophy of breast Coding Level of Care Code Est Pt Level 4 (03648) Diagnoses Allergic reaction T78.40XA Macromastia N62 Back pain M54.9 Syncope R55 Additional Codes MILA-7 Assessment Billing - MILA-7 Assessment Tool: MILA-7 Assessment 96918 ([id number]) Time Spent (min) 25
== END 2023-11-29 14:32 | disposition home or self-care (01) ==
PROVIDERS: PCP Internal Medicine; Visit Provider Internal Medicine
DX: T78.40XA Allergy, unspecified, initial encounter (principal); N62 Hypertrophy of breast; M54.9 Dorsalgia, unspecified; R55 Syncope and collapse
CPT/HCPCS: 99214

== ENCOUNTER 2023-12-05 07:43 | Outpatient (REF) | payer OTHER, SELFPAY ==
[2023-12-18 09:03] LABS: Immunoglobulin A 331
[2023-12-18 09:04] LABS: Transglutaminase IgA <1.0
== END 2023-12-05 07:44 | disposition home or self-care (01) ==
LOC: HO.LAB 07:43
PROVIDERS: PCP Internal Medicine; Visit Provider Internal Medicine
DX: T78.40XA Allergy, unspecified, initial encounter (principal)
CPT/HCPCS: 36415; 82784; 86003; 86364

== ENCOUNTER → 2023-12-26 07:49 | Outpatient (REF) | payer OTHER, SELFPAY ==
--- NOTE | 2023-12-26 07:53 | HM_ITS ---
* Total monitoring time 1 day. * Underlying rhythm is sinus with an average rate of 73/Min. * Extremely rare supraventricular and ventricular ectopy. * No significant pauses or AV blocks. * No patient markers. Diary not submitted. MTDD
--- NOTE | 2023-12-26 07:53 | CA_ITS ---
Transthoracic Echocardiogram Patient (Last, First, Middle): Brooks Hanson, Gender: Female Date of : 1975 Age: 48 Procedure Date: 12/26/2023 Procedure Type: Transthoracic Echocardiogram Location: OP Height: 165.1 cm Weight: 78.47 kg BSA: 1.86 m2 Heart Rate: bpm BP: 108 / 70 mmHg Digital Manager: TO Referring MD: Zehra Linton MD Bridge Toll Collector: Alfredo Goetz MD Symptoms: R01.1 - Cardiac murmur, unspecified Study Quality: Fair ECG Rhythm: Sinus Conclusions: - Normal study Findings Left Ventricle Normal left ventricular size, thickness, and systolic function. The visually estimated ejection fraction is between 55-60%. Spectral Doppler is indicative of a normal filling pattern. Peak GLS is -21.1%, within normal limits. Right Ventricle Normal right ventricular cavity size and systolic function. Atria Both atria are normal in size. There is no evidence of interatrial shunt. Aortic Valve Normal aortic valve structure and function. There is no aortic valve stenosis. There is no aortic valve regurgitation. Mitral Valve Normal mitral valve structure and function. There is trace mitral valve regurgitation. There is no mitral valve stenosis. Pulmonic Valve The pulmonic valve is likely normal. Tricuspid Valve Normal tricuspid valve structure. There is trace tricuspid valve regurgitation. The right ventricular systolic pressure is normal. The right ventricular systolic pressure is 27 mmHg. Normal right atrial pressure. There is no evidence of pulmonary hypertension. Great Vessels All visible segments of the aorta are normal in size. The pulmonary artery was not well visualized. Venous The inferior vena cava is normal in size and collapses greater than 50% with inspiration. Pericardium/Pleural There is no evidence of pericardial effusion. Measurements 2D Linear Measurements IVSd: 0.93 0.6-0.9/0.6-1.0 cm LVIDd: 4.41 3.9-5.3/4.2-5.9 cm LVIDd Index: 2.37 2.4-3.2/2.2-3.1 cm/m2 LVIDs: 3.17 2.0-3.6 cm LVPWd: 0.81 0.7-1.1 cm LA Diam: 3.60 2.7-3.8/3.0-4.0 cm LAIDs Index: 1.94 1.5-2.3 cm/m2 LV Mass: 153.07 67-162/88-224 g LV Mass Index: 82.30 43-95/49-115 g/m2 LVOT Diam: 2.00 3.0+(-)1.3 cm 2D Systolic Function EF 4C: 59.40 >55% EF 2C: 55.80 >55% EF BiP: 57.00 >55% Mitral Valve MV Pk E: 0.79 MV PK A: 0.56 MV Decel Time: 183.00 E/A: 1.40 E'Lateral: 10.70 E'Medial: 7.40 E/E' Med: 10.70 E/E' Lat: 7.40 PHT: 58.00 MVA PHT: 3.79 Decel [place]: 4.08 Aortic Valve AoV Pk Miles: 1.36 AoV Mn Miles: 1.02 AoV VTI: 0.32 AoV Pk Grad: 7.00 Aov Mn Grad: 4.00 STEFFI Cont.VTI: 2.55 LVOT LVOT Pk Miles: 1.09 LVOT Mn Miles: 0.70 LVOT VTI: 0.26 LVOT Pk Grad: 5.00 LVOT Mn Grad: 2.00 LVOT Diam: 2.00 LVOT Area: 3.14 Diastolic Function MV Pk E: 0.79 MV Pk A: 0.56 E/A: 1.40 E'Medial: 7.40 E/E' Med: 10.70 E' Laterial: 10.70 E/E' Lat: 7.40 Right Ventricle TAPSE (mm): 23.00 TVS' Miles: 10.60 Tricuspid Valve TR Pk Miles: 2.44 TR Pk Grad: 24.00 RA Press: 3.00 RVSP: 27.00 Great Vessels Aorta Sinus of Valsalva: 2.64 2.0-3.5 cm Ao Asc: 2.70 2.1-3.4 cm Updated in Other Vendor System with Status of Final Alfredo Goetz MD electronically signed on 12/27/2023 2:52:50 PM with status of Final
== END ==
LOC: HO.CARD 07:49
PROVIDERS: PCP Internal Medicine; Visit Provider Internal Medicine
DX: R01.1 Cardiac murmur, unspecified (principal); I51.7 Cardiomegaly; R00.1 Bradycardia, unspecified; R55 Syncope and collapse
CPT/HCPCS: 93225; 93306; 93356

== ENCOUNTER → 2023-12-26 07:53 | Outpatient (BNV) | payer OTHER, SELFPAY | PROVIDERS: PCP Internal Medicine; Visit Provider Internal Medicine Cardiovascular Disease | DX: R01.1 Cardiac murmur, unspecified (principal) | CPT/HCPCS: 93227; 93306; 93356 ==

== ENCOUNTER 2024-04-24 14:47 | Outpatient (REF) | payer OTHER, SELFPAY ==
--- NOTE | ~2024-04-24 | MM_ITS ---
EXAMINATION: MM SCREENING DIGITAL BREAST TOMOSYNTHESIS, BILATERAL CLINICAL INFORMATION: Screening. Asymptomatic. COMPARISON: Mammography: This study is compared with prior exams dating back to 2019. TECHNIQUE: Digital breast tomosynthesis is performed in both the craniocaudal and mediolateral oblique views along with computer-aided detection (CAD). Synthesized 2D images are generated from the tomosynthesis. FINDINGS: There are scattered areas of fibroglandular density (ACR BI-RADS breast composition Category b). There are no significant masses, abnormal calcifications, or other abnormalities. MM/MM tomosynthesis screening BI IMPRESSION: No mammographic evidence of malignancy. ASSESSMENT: BI-RADS BI-RADS 1 - Negative RECOMMENDATION: Routine annual mammography screening. 1 year F/U This examination should not preclude the clinical evaluation of a suspicious palpable abnormality. This patient's information was entered into a reminder system with a target due date for their next mammogram. Electronically signed by: Petrona Dee MD 05/21/2024 07:36 AM EDT
== END 2024-04-24 14:48 | disposition home or self-care (01) ==
LOC: HO.MAMMO 14:47
PROVIDERS: PCP Internal Medicine; Visit Provider Internal Medicine
DX: Z12.31 Encounter for screening mammogram for malignant neoplasm of breast (principal)
CPT/HCPCS: 77063; 77067

== ENCOUNTER → 2024-04-24 15:30 | Outpatient (BNV) | payer OTHER, SELFPAY | PROVIDERS: PCP Internal Medicine; Visit Provider Radiology Diagnostic Radiology | DX: Z12.31 Encounter for screening mammogram for malignant neoplasm of breast (principal) | CPT/HCPCS: 77063; 77067 ==

== ENCOUNTER 2024-07-11 16:38 | Outpatient (REF) | payer OTHER, SELFPAY ==
[2024-07-11 16:49] LABS: MANUAL DIFF FLAG NO
[2024-07-11 17:00] LABS: Basophils Percent Auto 0.5 % (0-2); Eosinophils Absolute Auto 0.1 X10*3/uL (0.0-0.4); Hemoglobin 12.5 g/dl (12.0-16.0); Imm Gran Abs Auto 0.01 X10*3/uL (0.00-0.03); Imm Gran Pct Auto 0.2 % (0.0-0.4); Lymphocytes Percent Auto 47.2 % (20-40); Mean Corpuscular HGB Conc 34.7 g/dl (31.0-35.0); Mean Corpuscular Hemoglobin 30.9 pg (27.0-33.0); Mean Corpuscular Volume 89.1 fL (80.0-98.0); Mean Platelet Volume 9.3 fL (9.4-12.3); Monocytes Absolute Auto 0.3 X10*3/uL (0.1-1.2); Monocytes Percent Auto 6.5 % (2-11); Neutrophils Absolute Auto 1.8 x10*3/uL (2.0-8.3); Neutrophils Percent Auto 42.6 % (45-73); Platelet Count 257 X10*3/uL (160-400); Red Blood Count 4.04 X10*6/uL (4.20-5.50); Red Cell Distribution Width 12.5 % (11.0-16.0); White Blood Count 4.3 X10*3/uL (4.8-10.8)
[2024-07-11 17:12] LABS: Appearance Urine Clear; Color Urine Yellow; Glucose Urine UA Negative (Negative); Leukocyte Esterase Urine Small (1+) (Negative); Nitrite Urine Negative (Negative); PH 6.5 (5.0-9.0); UMIC TRIGGER UACC YES; Urine Blood Negative (Negative); Urine Ketones Negative (Negative); Urine Protein Negative (Neg-Trace)
[2024-07-11 17:15] LABS: Bacteria Urine None Seen (None Seen); Hyaline Casts Urine 0-2 /LPF (0-2); RBC Urine 0-2 /HPF (0-2); Squamous Epithelial Cell Urine 0-2 /HPF (0-2); UACC Culture Trigger YES
[2024-07-11 17:38] LABS: Alanine Aminotransferase 14 U/L (0-31); Alkaline Phosphatase 79 U/L (39-117); Anion Gap 11 (12-20); Aspartate Amino Transferase 21 U/L (5-31); Bilirubin Total 0.3 mg/dL (0.0-1.0); Blood Urea Nitrogen 14 mg/dL (9-16); Calcium 8.8 mg/dL (8.4-10.2); Carbon Dioxide 27 mmol/L (22-29); Chloride 105 mmol/L (96-108); Estimated Glomerular Filt Rate > 60; Glucose Fasting 115 mg/dL (60-99); Potassium 3.7 mmol/L (3.3-5.1); Sodium 139 mmol/L (135-145)
== END 2024-07-11 16:39 | disposition home or self-care (01) ==
LOC: HO.LAB 16:38
PROVIDERS: PCP Internal Medicine; Visit Provider Internal Medicine
DX: Z01.818 Encounter for other preprocedural examination (principal); R30.0 Dysuria
CPT/HCPCS: 36415; 80053; 81001; 85025; 87086

== ENCOUNTER 2024-08-05 12:25 | Outpatient (AMB) | payer OTHER, SELFPAY ==
--- NOTE | 2024-08-05 12:33 | A.OFFPC_ITS ---
Vital Signs 08/05/24 12:35 Height 5 ft 5 in Weight 180 lb BMI 30.0 BP 120/80 Blood Pressure Location Lt brachial Position Sitting Pulse 72 Pulse Source Pulse Oximeter Pulse Oximetry (%) 98 Oxygen Delivery Method Room Air Intake Visit Reasons: Pre op - Eye surgery 08/29 Pcas Required: No Accompanied by: Self / Same As Patient Allergies No Known Allergies Allergy (Verified 08/05/24 12:58) Medication List - Last Reconciled 08/05/24 by Zehra Linton MD No Known Home Meds Tobacco use date assessed: 11/29/23 Dental Screening Dental Screen Date: 11/29/23 HPI HPI Comments History of Present Illness Details The patient is a 48-year-old female presenting with a need for preoperative cardiac risk assessment in anticipation of a scheduled non- specified surgery due to back pain. The surgery is planned for August 29, 2024. She has a history of depression, which is currently in remission. Previous surgical history includes gastric sleeve surgery in 2021 and a section. Additionally, she has a family history of asthma. Her last electrocardiogram and echocardiogram were performed in December of the current year and yielded normal results. No current medications or allergies are reported. She will have another EKG. Recent labs from last month showed no contraindication for surgery. Patient has 4-7 Mets of ADLs. Denies any chest pain or shortness on breath. Surgery is breast reduction surgery due to intractable thoracic spine pain. [facility] Medical History (Updated 08/05/24 @ 14:56 by Zehra Linton MD) Mild single current episode of major depressive disorder Leukopenia Class 2 obesity with body mass index (BMI) of 37.0 to 37.9 in adult Candidal intertrigo Right foot pain Skin lesion BMI 35.0-35.9,adult Vitamin A deficiency Helicobacter pylori antibody positive Back pain Morbid obesity Surgical History Hx laparoscopic cholecystectomy S/P laparoscopic sleeve gastrectomy Hx of section Family History Mother Asthma Father No problems noted. Sister No problems noted. Sister No problems noted. Brother No problems noted. Brother No problems noted. Son No problems noted. Daughter No problems noted. Social History (Updated 08/05/24 @ 13:01 by Zehra Linton MD) Housing: House Are you a primary continuum of care manager to a significant other at home: No Do you presently have visiting nurse or other home services: No Alcohol intake: current Alcohol intake frequency: holidays/special occasions only Alcohol type: hard liquor Patient Tobacco Use Status: Never used Tobacco e-Cigarette/Vaping Use: Never Used Second Hand Smoke Exposure: No service: No Current occupational status: employed Current occupational exposures/hazards: No Cognitive needs: No Hearing needs: No Vision needs: No Questionnaire Thrive Questionnaire Date Thrive assessed: 11/29/23 MILA-7 AMB Questionnaire MILA-7 Date MILA - 7 assessed: 11/29/23 Source: Developed by Drs. Papa Clark, Alley Aguilar, Stef Velazco and colleagues, with an educational gail from [employer]. Review of Systems Const All systems reviewed & are unremarkable except as noted in HPI and below Card Denies chest pain at rest, Denies chest pain with activity, Denies edema, Denies irregular heart rhythm, Denies claudication, Denies dyspnea, Denies dyspnea on exertion, Denies orthopnea, Denies paroxysmal nocturnal dyspnea and Denies slow heart rate Resp Denies cough, Denies dyspnea and Denies dyspnea on exertion GI Denies abdominal pain, Denies change in bowel habits, Denies excessive flatus, Denies nausea and Denies vomiting Physical exam (Primary Care) Vital Signs: Last Vital Signs Pulse 72 08/05/24 12:35 BP 120/80 08/05/24 12:35 Pulse Ox 98 08/05/24 12:35 Oxygen Delivery Method Room Air 08/05/24 12:35 BMI result Body Mass Index 30.0 BMI Assessment/Plan discussion: High BMI High, discussed plan: lifestyle, weight reduction, dietary and physical activity Tobacco/Smoking Status: Tobacco use Status Tobacco use date assessed 11/29/23 08/05/24 12:34 Patient Tobacco Use Status Never used Tobacco 08/05/24 13:01 e-Cigarette/Vaping Use Never Used 08/05/24 13:01 Thrive Assessment: Date of Thrive Assessment Date Thrive assessed 11/29/23 08/05/24 12:34 Resp Effort & Inspection: normal respiratory effort Auscultation: clear to auscultation bilaterally Cardio Jugular venous distension: no JVD Rate: regular rate Rhythm: regular rhythm Heart sounds: S1 normal heart sound present and S2 normal heart sound present Extrem General: Yes full ROM Office Procedures Flu Questionnaire Does the patient have a severe egg allergy?: No Immunizations Fluarix Triv [id number] (PF) 45 mcg (15 mcg x 3)/0.5 mL IM syringe Performing Provider: Zehra Linton MD Performing Location: [facility] [place] [facility] Documented (not given) by: KATIE Zazueta on 08/05/24 14:16 Reason Not Given: Not Given Coding Level of Care Code Est Pt Level 3 (14084) Complex EM visit Add On G2211 Diagnoses Pre-op evaluation Z01.818 Mild single current episode of major depressive disorder F32.0 Time Spent (min) 23 Assessment & Plan Assessment & Plan (1) Pre-op evaluation: Code(s): Z01.818 - Encounter for other preprocedural examination Category: Medical Plan: EKG pending for medical clearance. (2) Mild single current episode of major depressive disorder: Code(s): F32.0 - Major depressive disorder, single episode, mild Category: Medical Plan: In remission. Plan 1. Depression in Remission: - Continue current management plan as depression is stable and in remission. 2. Status Post Gastric Sleeve Surgery and Section: - No specific interventions required at this time related to previous surgeries. 3. Back Pain: - Preoperative assessment planned; ensure completion of electrocardiogram for evaluation of preoperative cardiac risk. 4. Preoperative Risk Assessment: - Review results and determine any additional preoperative evaluations needed. Patient was informed and verbally consented to the use of an ambient scribe for clinic note documentation during this visit. Orders: Orders ECG 12 lead EKG Today Z01.818 - Encounter for other preprocedural examination Influenza [id number] Immunization Today Z23 - Encounter for immunization
[2024-08-05 12:35] VITALS: BP 120/80; PULSE 72; O2SAT 98
== END 2024-08-05 13:13 | disposition home or self-care (01) ==
PROVIDERS: PCP Internal Medicine; Visit Provider Internal Medicine
DX: Z01.818 Encounter for other preprocedural examination (principal); F32.0 Major depressive disorder, single episode, mild; Z23 Encounter for immunization

== ENCOUNTER → 2024-08-05 12:25 | Outpatient (BNVA) | payer OTHER, SELFPAY | PROVIDERS: PCP Internal Medicine; Visit Provider Internal Medicine | DX: Z01.818 Encounter for other preprocedural examination (principal); F32.0 Major depressive disorder, single episode, mild | CPT/HCPCS: 90471; 99212 ==

== ENCOUNTER → 2024-08-06 07:04 | Outpatient (REF) | payer OTHER, SELFPAY ==
--- NOTE | 2024-08-06 07:09 | ECG_ITS ---
Test Reason : preop Blood Pressure : / mmHG Vent. Rate : 067 BPM Atrial Rate : 067 BPM P-R Int : 178 ms QRS Dur : 072 ms QT Int : 380 ms P-R-T Axes : 035 -04 016 degrees QTc Int : 401 ms Normal sinus rhythm Inferior infarct , age undetermined Abnormal ECG When compared with ECG of 09-OCT-2023 11:58, No significant change was found Referred By: Zehra Linton Electronically Signed By:DAVID MERIDA MD
== END ==
LOC: HO.CARD 07:04
PROVIDERS: PCP Internal Medicine; Visit Provider Internal Medicine
DX: Z01.818 Encounter for other preprocedural examination (principal)
CPT/HCPCS: 93005

== ENCOUNTER → 2024-08-06 07:09 | Outpatient (BNV) | payer OTHER, SELFPAY | PROVIDERS: PCP Internal Medicine; Visit Provider Internal Medicine Cardiovascular Disease | DX: R94.31 Abnormal electrocardiogram [ECG] [EKG] (principal) | CPT/HCPCS: 93010 ==

== ENCOUNTER 2024-09-09 17:22 | Outpatient (AMB) | payer OTHER, SELFPAY ==
--- OUTSIDE RECORDS SUMMARY | 2024-09-09 17:25 | XMS_ITS | Continuity of Care Document ---
Author Organization [facility] ter Address [address] [place] [address]- Care Team Providers Care Spd Tech Name Role Phone Eran Linton MD, Zehra Bishop Primary Care Physician [phone] [facility] Date(s): 08/29/24 - 08/29/[address] [address]- Discharge Disposition: A-D/C Home Attending Physician: Zeina Will MD Admitting Physician: Zeina Will MD Referring Physician: Zeina Will MD Encounter Type: Disch Daystay Allergies, Adverse Reactions, Alerts No Known Allergies Immunizations Given and Recorded Vaccine Date Status Refusal Reason Fluarix (oldterm) 1 09/09/11 Given Hepatitis B Vaccine (old term) 07/28/06 Given hepatitis B adult vaccine 2 02/22/06 Given hepatitis B adult vaccine 3 01/18/06 Given tetanus-diphtheria toxoids (Td) 4 11/08/00 Given 1Admin Note: 04/12/11 VIS Given. 2Admin Note: Entered in from info in pt's chart prior to purging. Given by EFRAIN Rosario. 3Admin Note: Entered in from info in pt's chart. Given by EFRAIN Rosario. 4Admin Note: Entered in from info in pt's chart prior to purging. Given by EFRAIN Rosario. Medications Mirena 52 mg intrauterine device 1 each = 52 mg, Intrauterine, Once, office supplied and inserted by [employer] on 04/03/24 lot#[id number] exp#05/[address] [facility]# [id number], # 1 each, 0 Refills, Soft Stop, 04/03/24 4:00:00 PM EDT, [facility], Partial fill upon patient request if the prescription is for a schedule II opioid drug., 166, cm, 02/27/24 18:16:00 EDT, Height, 81, kg, 02/27/24 18:16:00 EDT, Dry Weight Start Date: 04/03/24 Status: Ordered Quantity: 1.0 Unit: each Repeat number: 1 Oxycodone 5mg Oral Tablet (PACU ONLY) 5 mg, Tablet, By Mouth, Once, in PACU ONLY, PRN for Pain , Moderate, Routine, 08/29/24 1:44:00 PM EST Start Date: 08/29/24 Stop Date: 08/29/24 Status: Completed Repeat number: 1 Problem List Condition Confirmation Course Effective Dates Status H ealth Status Informant Episode of heavy vaginal bleeding Confirmed Active Presence of IUD 1 Confirmed 04/22/16 Active Encounter for routine checking of intrauterine contraceptive device (IUD) Confirmed Active Obese class I Confirmed Active 1Mirena IUD Vital Signs Most recent to oldest [Reference Range]: 1 2 3 Height 165 cm (08/29/24 10:25 AM) 165 cm (08/28/24 9:35 AM) Weight 81.9 kg (08/29/24 10:25 AM) 79.7 kg (08/28/24 9:35 AM) Oxygen Saturation [94-100 %] 96 % (08/29/24 2:53 PM) 97 % (08/29/24 2:39 PM) 97 % (08/29/24 2:15 PM) Pulse Rate [55-90 bpm] 72 bpm (08/29/24 10:25 AM) Body Mass Index [18.5-24.99 kg/m2] 30.08 kg/m2 *>HHI* (08/29/24 10:25 AM) 29.27 kg/m2 *H* (08/28/24 9:35 AM) Blood Pressure [90-138/55-84 mm Hg] 123/75mm Hg (08/29/24 2:45 PM) 117/84mm Hg (08/29/24 2:30 PM) 116/60mm Hg (08/29/24 2:15 PM) Respiratory Rate [16-30 br/min] 12 br/min *L* (08/29/24 2:54 PM) 14 br/min *L* (08/29/24 2:39 PM) 16 br/min (08/29/24 2:24 PM) Temperature [96.8-100.4 DegF] 97.1 DegF (08/29/24 3:15 PM) 97.5 DegF (08/29/24 1:42 PM) 97.9 DegF (08/29/24 10:25 AM) Liters per Minute 6 L/min (08/29/24 2:00 PM) 6 L/min (08/29/24 1:45 PM) 6 L/min (08/29/24 1:42 PM) Mode of Delivery (Oxygen) Room air (08/29/24 2:45 PM) Room air (08/29/24 2:30 PM) Room air (08/29/24 2:15 PM) Blood pressure sites Arm, right (08/29/24 2:45 PM) Arm, right (08/29/24 2:30 PM) Arm, right (08/29/24 2:15 PM) Temperature Route Temporal (08/29/24 3:15 PM) Temporal (08/29/24 1:42 PM) Temporal (08/29/24 10:25 AM) Dry Weight 81.9 kg (08/29/24 10:25 AM) 79.7 kg (08/28/24 9:35 AM) Weight Obtained Via Patient/family state d (08/28/24 9:35 AM) Dry Weight Obtained Via Standing scale (08/29/24 10:25 AM) Patient/family stated (08/28/24 9:35 AM) Social History Social History Type Response Smoking Status Never smoker entered on: 10/04/13 Sex Sex Representation Female (finding) History and physical note * Event Display: History and Physical Hospital Authored Date: Note * Katerine Dhaliwal RN: PERFORM Event Display: Discharge/Transfer Note Hospital Authored Date: [id number] Nursing Discharge Note Entered On: 08/29/2024 15:31 EST Performed On: 08/29/2024 15:30 EST by Katerine Dhaliwal RN Nursing Discharge Note 2 Discharge Time : 08/29/2024 15:30 EST Discharge Level of Care at Discharge : Home/Usp/Foster Care Patient Left Unit Via : Wheelchair Patient Accompanied Off Unit with : Significant other DC Instructions Provided & Signed by Pt : Yes Patient Understands D/C Instructions : Yes Patient Instructions Discharge Signed : Yes Did Pt have Specialty Bed or Wound Vac : No Katerine Dhaliwal RN - 08/29/2024 15:30 EST * Kristine Ramirez RN: PERFORM Event Display: Discharge/Transfer Note Hospital Authored Date: [id number] Nursing Discharge Note Entered On: 08/29/2024 14:05 EST Performed On: 08/29/2024 14:05 EST by Kristine Ramirez RN Nursing Discharge Note 2 Discharge Time : 08/29/2024 15:30 EST Kristine Ramirez RN - 08/29/2024 15:31 EST Discharge Level of Care at Discharge : Home/Usp/Foster Care Patient Left Unit Via : Wheelchair Patient Accompanied Off Unit with : Significant other DC Instructions Provided & Signed by Pt : Yes Patient Understands D/C Instructions : Yes Patient Instructions Discharge Signed : Yes Did Pt have Specialty Bed or Wound Vac : No Kristine Ramirez RN - 08/29/2024 14:05 EST * Kristine Ramirez RN: PERFORM Event Display: Patient Education/Instruction Authored Date: [id number] Surgery [place] [address] Name: SILAS THOMAS : 1975?? Visit: 08/29/2024 09:47?? Current Date: 08/29/2024 14:35 ?? Account: [id number]?? Surgery Discharge Instructions We would like to thank you for allowing us to assist you with your healthcare needs. The following includes patient education materials and information regarding your injury/illness. Our entire staffstrives to provide an excellent experience for our patients and their families. PLEASE ENSURE YOU FOLLOW-UP PER THE INSTRUCTIONS BELOW! ?? YOUR OPINION IS IMPORTANT TO US! Please complete the survey you may receive by mail or email. Your feedback will be used to make improvements to the healthcare experiences of our patients and their families. Surveys are administered by [email or web address] ?? If further treatment with your primary care physician or another doctor is recommended, it is important for you to keep the appointment. Call your primary care physician or return to the Emergency Department immediately if your condition worsens, fails to improve, or new symptoms develop. If you need to find a doctor, you can call [facility] Link for a referral at [phone] or toll free at [phone] ([phone]) or log in to [email or web address].. ?? [facility], in keeping with [facility] guidance, no longer requires face masks for staff, patientsor visitors in most situations. Similiar to time spent indoors at other locations, there is the chance that you were exposed to repiratory viruses during your time with us (such as flu or COVID-19). If you develop symptoms concerning for a viral respiratory infection, please seek testing (and treatment if indicated) from your medical provider or home test kit. ?? You can view and manage your care through the patient portal or by using a health care cindy of your choosing. [employer] is a website that allows you to securely view your medical information including your hospital discharge summary, office visit summaries, medications and follow-up visits. You can also request appointments, renew medications, and request access to your medical information using a health care cindy of your choosing, or just ask a question. You are entitled to know the individuals who participated in your treatment. This information is available within your medical record and will be provided upon your request. You can enroll at [email or web address] or register d uring your next office visit. You have been discharged from [facility], Patient Care Unit: [facility]??. If you have any questions regarding these instructions after you leave, please call us and we will be happy to assist you. [facility] Your Care Team Attending Physician Suman HERNANDES, Zeina Bashir?? Consulting Providers Zeina Will MD?? Discharging Providers Megan Brand Reason for Admission BREAST HYPERTROPHY BILATBR REDUCTION DS CS Primary Care Provider Eran Linton MD , Zehra Bishop? Advance Directive Health Care Proxy on File No What to do next Instructions from your Care Team Please follow all written instructions provided by your surgeons's office.? - Your prescriptions have been sent electronically to your pharmacy.?? Last tylenol given at 10:35am, next dose can be taken after 4:35pm. Lasy oxycodone given at 2:24pm. ?? - Please monitor and record all ECTOR??drainage daily.?? - Do not shower with your ECTOR drains in place. - You will need to follow up with your surgeon in office.?? - You must wear your binder at all times.?? - Apply ice to breast for 72 hours.?? - No heavy lifting for 4 weeks; no driving while on pain medications.? Scheduled Follow-Up Appointments Monday 9:00 AM EST ?? Where: [facility] [place] [address]- Status: Pending You Need to Schedule the Following Appointments Follow Up with??Zeina Will Where: [address], [address] [facility] [place] [address]- Business (1) Follow Up with??Zehra Linton MD When:??In 0 days Where: [address] [place] [address]- Business (1) Discharge Medications SILAS THOMAS :1975 Visit Date:08/29/2024 Medications: Please continue your medications until treatment is completed or stopped by your provider. You may resume your daily prescription medications. Discuss any questions related to medications with your provider. What How Much When Instructions Next Dose Unchanged Levonorgestrel (Mirena 52 mg intrauterine device) 1 Each Intrauterine Once office supplied and inserted by [employer] on lot#[id number] exp#[address] [facility]# [id number] ?? Allergies (NKA means No Known Allergies) NKA Education Materials Below is the list of Educational Leaflet Providered with your Discharge Instructions. [employer] Patient Education - Surgery Medical Daystay Surgical Overnight Discharge Instructions?? Valuables and Belongings I fully understand and agree that [facility] accepts no responsibility for all my personal property including clothing, toilet articles, radios, jewelry, dentures, hearing aids, rings, money, or any other property that is in my possession or is brought to me after admission. I understand certain valuables may be placed in a hospital safe for a short period of time. I understand that the hospital is not liable for loss or damage due to accident, fire, or other natural occurrence while said property is in the safe. I accept full responsibility for any personal property that I keep with me, and will not hold the hospital responsible in case of loss or disappearance. I acknowledge that i have been encouraged to send valuables and belongings home. ?? Review of Valuable and Belonging List: With patient Date for Pt to Sign Valuables/Belongings: 08/29/24 10:25:00 ?? Valuables & Belongings ?? Clothes Electronic devices Jewelry Monetary Items Personal devices Miscellaneous Medications (Valuables) Valuables at Bedside Jacket, Pants, Shirt, Shoes, Undergarments ? Valuables Sent Home ? Valuables Sent to Security ? Valuables Sent to Locker ? Other Discharge Information ? Case Management Discharge Plan?? Discharge Plan?? Discharge Level of Care at Discharge: Home/Usp/Foster Care ?? Pulmonary Rehab Status?? Pulmonary Rehab Discharge Status?? Respiratory Rate: 16 br/min ? Common Emergency Awareness Tips IS IT A STROKE? Act FAST and Check for these signs: FACE Does the face look uneven? ARM Does one arm drift down? SPEECH Does their speech sound strange? TIME Call at any sign of stroke ?? Heart Attack Signs Chest discomfort: Most heart attacks involve discomfort in the center of the chest and lasts more than a few minutes, or goes away and comes back. It can feel like uncomfortable pressure, squeezing, fullness or pain. Discomfort in upper body: Symptoms can include pain or discomfort in one or both arms, back, neck, jaw or stomach. Shortness of breath: With or without discomfort. Other signs: Breaking out in a cold sweat, nausea, or lightheaded. Remember, MINUTES DO MATTER. If you experience any of these heart attack warning signs, call to get immediate medical attention! ?? Smoking can increase your chances of developing chronic health problems and can cause harmful effects to other family members in your house. If you smoke, you are strongly encouraged to quit. Please call [facility] Link at [phone] or [phone] ([phone]) or log in to [email or web address] for referrals to smoking cessation programs. ?? The National Suicide Prevention Hotline is available 10/04 if you or someone you know needs to find a reason to keep living. By calling 3-210-005-Vigilos (9871) you'll be connected to a skilled, trained counselor at a crisis center in your area. SURGERY DISCHARGE INSTRUCTIONS SIGNATURE PAGE WILLIAMSILAS BARKLEY Location:[facility] Registration Date and Time:08/29/2024 09:47 EST Primary Care Physician: Eran Linton MD , Ana, Attending Physician: Suman HERNANDES, Zeina Bashir, I SILAS THOMAS, have received the above patient education materials/instructions and have verbalized understanding. If ambulance or transport services are being used I further acknowledge being given a choice of service. ?? If you need to contact me, please call me at this number: [phone] . Patient/Sales Agent Insurance Name: SILAS THOMAS Patient/Sales Agent Insurance Signature: Relationship to Patient: Self Witness Name/Signature: Date: [id number] * Kristine Ramirez RN: SIGN, VERIFY, PERFORM Event Display: Patient Education Handout Authored Date: [id number] * Kristine Ramirez RN: PERFORM Event Display: Patient Education Leaflets Authored Date: Surgery Medical Daystay Surgical Overnight Discharge Instructions ?? 295 Medical Daystay/Surgical Overnight Discharge Instructions ? Since your coordination and judgment may be altered by medication and/or anesthesia, a responsible adult must drive you home from the hospital. ? If you have received medication for pain or sedation while under our care, you should not drive, operate machinery, drink alcohol, or sign any legal documents for 24 hours.?? You should have someone with you at home tonight. ? Remain at home the day of discharge.?? You may be up and about unless otherwise instructed by your physician. ? You may resume your daily prescription medication schedule.?? Any depressant medication should be avoided for 24 hours unless otherwise instructed by your surgeon or anesthesiologist. ? Call your physician for a follow-up appointment.? If you experience unusual or severe pain not relied by your pain medication, excessive bleedingor drainage, persistent nausea and vomiting, excessive swelling or redness, foul odor from incisionsite or fever over 100.6F, you need to call your physician. ? A follow-up phone call by a nurse will be made the day after your procedure.?? If you have stayed with us over night, you will not be receiving a follow-up phone call. ? Nausea and vomiting are a common side effect of prescription pain medication.?? We recommend that pills are not taken on an empty stomach.?? While taking any prescription pain medication you should not drive or drink alcohol. ? Patient Care team information Care Team Personnel Name: Eran Linton MD , Zehra Bishop Position: Reference Physician Member Role: PCP Address: [address] [place] [address]- Telecom: Care Team Related Persons Name: STANISLAW HAWKINS Insurance Providers Guarantor name: SILAS THOMAS Health Plan Information #: 1 Payer: [employer] Member Number: [id number] Policy Number: NA Group Number: [id number] Health Plan Information #: 2 Payer: [employer] Member Number: [id number] Policy Number: NA Group Number: NA
--- OUTSIDE RECORDS SUMMARY | 2024-09-09 17:25 | XMS_ITS | Continuity of Care Document ---
Author [facility] Address [address] [place] [address]- Care Team Providers Care Market Development Director Name Role Phone Eran Linton MD, Zehra Bishop Primary Care Physician Encounter [facility] Date(s): 07/11/24 - 08/10/24 [facility] and [address] [address]- Encounter Type: Triage Allergies, Adverse Reactions, Alerts No Known Allergies [...] to purging. Given by EFRAIN Rosario. Medications metroNIDAZOLE 500 mg oral tablet See Instructions, TOME 1 TABLETA POR VIA ORAL CADA 12 HORAS POR 7 MURPHY, # 14 tablet, 0 Refills, Maintenance, 07/29/24 8:54:00 AM EST, [facility], 166, cm, 07/23/24 16:12:00 EST, Height, 82.6, kg, 07/23/24 16:12:00 EST, Dry Weight Start Date: 07/29/24 Status: Ordered Quantity: 14.0 Unit: tablet Repeat number: 1 Mirena 52 mg intrauterine device 1 each = 52 mg, Intrauterine, Once, office supplied and inserted by [employer] on 04/03/24 lot#[id number] exp#05/2026 [facility]# [id number], # 1 each, 0 Refills, Soft Stop, 04/03/24 4:00:00 PM EDT, [facility], Partial fill upon patient request if the prescription is for a schedule II opioid drug., 166, cm, 02/27/24 18:16:00 EDT, Height, 81, kg, 02/27/24 18:16:00 EDT, Dry Weight Start Date: 04/03/24 Status: Ordered Quantity: 1.0 Unit: each Repeat number: 1 Problem List Condition Confirmation Course Effective Dates Status H ealth Status Informant Episode of heavy vaginal bleeding Confirmed Active Presence of IUD 1 Confirmed 04/22/16 Active Encounter for routine checking of intrauterine contraceptive device (IUD) Confirmed Active 1Mirena IUD Social History Social History Type Response Smoking Status Never smoker entered on: 10/04/13 Sex Sex Representation Female (finding) Patient Care team information Care Team Personnel Name: Eran Linton MD , Zehra Bishop Position: Reference Physician Member Role: PCP Address: [address] [place] [address] [address] [place] [id number] Telecom: Care Team Related Persons Name: STANISLAW HAWKINS Insurance Providers Guarantor name: SILAS BURRELLCION Health Plan Information #: 1 Payer: [employer] DIRECT Member Number: NA Policy Number: NA Group Number: NA
--- OUTSIDE RECORDS SUMMARY | 2024-09-09 17:25 | XMS_ITS | Continuity of Care Document ---
Author Organization [facility] Address [address] [place] [address]- Care Team Providers Care Relations Director Name Role Phone Eran Linton MD, Zehra Bishop Primary Care Physician Encounter [facility] Date(s): 08/02/24 - 09/01/24 [facility] [address] [address] Encounter Type: Triage Allergies, Adverse Reactions, Alerts [...] and inserted by [employer] on 04/03/24 lot#[id number] exp#05/2026 [facility]# [id number], # 1 each, 0 Refills, Soft Stop, 04/03/24 4:00:00 PM EDT, [facility], Partial fill upon patient request [...] Obese class I Confirmed Active 1Mirena IUD Social History Social History Type Response Smoking Status Never smoker entered on: 10/04/13 Sex Sex Representation Female (finding) Patient Care team information Care Team Personnel Name: Zehra Dumont MD Position: Reference Physician Member Role: PCP Address: [address] [place] [id number] Telecom: Care Team Related Persons Name: STANISLAW HAWKINS Insurance Providers Guarantor name: SILAS THOMAS Health Plan Information #: 1 Payer: [employer] DIRECT Member Number: NA Policy Number: NA Group Number: NA
--- OUTSIDE RECORDS SUMMARY | 2024-09-09 17:25 | XMS_ITS | Continuity of Care Document ---
Author Organization [facility] Address [address] [place] [address]- Care Team Providers Care Adult Manager Name Role Phone Eran Linton MD, Zehra Bishop Primary Care Physician Encounter [facility] Date(s): 07/26/24 - 08/25/24 [facility] and [address] [address]- Encounter Type: Triage Allergies, Adverse Reactions, Alerts [...] Maintenance, 07/29/24 8:54:00 AM EST, [facility], 166, cm, 07/23/24 16:12:00 EST, Height, 82.6, kg, 07/23/24 16:12:00 EST, Dry Weight Start Date: 07/29/24 Status: Ordered Quantity: 14.0 Unit: tablet Repeat number: 1 Mirena 52 mg intrauterine device 1 each = 52 mg, Intrauterine, Once, office supplied and inserted by [employer] on 04/03/24 lot#[id number] exp#05/2026 [facility]# [id number], # 1 each, 0 Refills, Soft Stop, 04/03/24 4:00:00 PM EDT, [facility], Partial fill upon patient request [...] Position: Reference Physician Member Role: PCP Address: [address] [place] [address] [address] [place] [id number] Telecom: Care Team Related Persons Name: STANISLAW HAWKINS Insurance Providers Guarantor name: SILAS BURRELLCION Health Plan Information #: 1 Payer: [employer] DIRECT Member Number: NA Policy Number: NA Group Number: NA
--- OUTSIDE RECORDS SUMMARY | 2024-09-09 17:25 | XMS_ITS | Continuity of Care Document ---
Author Organization [facility] Address [address] [place] [address]- Care Team Providers Care Dress Designer Name Role Phone Eran Linton MD, Zehra Bishop Primary Care Physician Encounter [facility] Date(s): 07/23/24 - 08/22/[address] [address] Attending Physician: Aneudy Cheung Encounter Type: Triage Allergies, Adverse Reactions, Alerts [...] Maintenance, 07/29/24 8:54:00 AM EST, [facility], 166, cm, 07/23/24 16:12:00 EST, Height, 82.6, kg, 07/23/24 16:12:00 EST, Dry Weight Start Date: 07/29/24 Status: Ordered Quantity: 14.0 Unit: tablet Repeat number: 1 Mirena 52 mg intrauterine device 1 each = 52 mg, Intrauterine, Once, office supplied and inserted by [employer] on 04/03/24 lot#[id number] exp#05/2026 [facility]# [id number], # 1 each, 0 Refills, Soft Stop, 04/03/24 4:00:00 PM EDT, [facility], Partial fill upon patient request [...] Position: Reference Physician Member Role: PCP Address: [address] [place] [address] [address] [place] [address] Telecom: Care Team Related Persons Name: STANISLAW HAWKINS Insurance Providers Guarantor name: SILAS RODRIGUESON Health Plan Information #: 1 Payer: [employer] Member Number: NA Policy Number: NA Group Number: NA
--- NOTE | 2024-09-09 17:29 | A.OFFPC_ITS ---
Vital Signs 09/09/24 17:36 Height 5 ft 5 in Weight 179 lb BMI 29.8 BP 112/80 Blood Pressure Location Lt brachial Position Sitting Intake Visit Reasons: PE Intake Note: Patient here for a physical exam Hand Button Splitter Required: No Accompanied by: Daughter Allergies No Known Allergies Allergy (Verified 09/09/24 18:06) Medication List - Last Reconciled 09/09/24 by Zehra Linton MD No Known Home Meds Tobacco use date assessed: 11/29/23 Dental Screening Dental Screen Date: 11/29/23 HPI HPI Comments History of Present Illness Details This is a 48-year-old female that comes accompanied by daughter for her physical exam. She had her mammogram done 2023. Also had Cologuard done 2023 which was negative and next Cologuard should be 2026. Complains of allergic reactions and would like an allergy referral. Pap smears are also up-to-date. [facility] Medical History Mild single current episode of major depressive disorder Leukopenia Class 2 obesity with body mass index (BMI) of 37.0 to 37.9 in adult Candidal intertrigo Right foot pain Skin lesion BMI 35.0-35.9,adult Vitamin A deficiency Helicobacter pylori antibody positive Back pain Morbid obesity Surgical History History of bilateral breast reduction surgery Hx laparoscopic cholecystectomy S/P laparoscopic sleeve gastrectomy Hx of section Family History Mother Asthma Father No problems noted. Sister No problems noted. Sister No problems noted. Brother No problems noted. Brother No problems noted. Son No problems noted. Daughter No problems noted. Social History Housing: House Are you a primary career technical education instructor to a significant other at home: No Do you presently have visiting nurse or other home services: No Alcohol intake: current Alcohol intake frequency: holidays/special occasions only Alcohol type: hard liquor Patient Tobacco Use Status: Never used Tobacco e-Cigarette/Vaping Use: Never Used Second Hand Smoke Exposure: No service: No Current occupational status: employed Current occupational exposures/hazards: No Cognitive needs: No Hearing needs: No Vision needs: No Questionnaire Thrive Questionnaire Date Thrive assessed: 09/07/24 I am a: Patient What is your living situation today?: I have a steady place to live Within the past 12 months, did the food you bought not last and you didn't have the money to get more?: Never true Within the past 12 months, did you worry whether your food would run out before you got money to buy more?: Never true Do you have trouble paying for medicines?: No Do you have trouble getting transportation to medical appointments?: No Do you have trouble paying your heating and electricity bill?: No Do you have trouble taking care of your child, family member or friend?: No Do you have trouble with day-to-day activities such as bathing, preparing meals, shopping, managing finances, etc.?: No Are you currently unemployed and looking for a job?: Yes Are you interested in more education?: I choose not to answer this question Please select the resources that you would like help with: Care for elder or disabled Currently or been in a relationship where the following occur: No concerns reported THRIVE Score: 0 AUDIT C Alcohol Use Questionnaire (AUDIT-C) 1. How often do you have a drink containing alcohol?: Never Total Score: 0 MILA-7 AMB Questionnaire MILA-7 Date MILA - 7 assessed: 11/29/23 Feeling nervous, anxious, or on edge: 0 = Not at all Not being able to stop or control worryin = Not at all Worrying too much about different things: 0 = Not at all Trouble relaxin = Not at all Being so restless that it is hard to sit still: 0 = Not at all Becoming easily annoyed or irritable: 0 = Not at all Feeling afraid as if something awful might happen: 0 = Not at all Total MILA-7 score (0-4 normal; 5-9 mild; 10-14 moderate; 15-21 severe): 0 Source: Developed by Drs. Papa Clark, Alley Aguilar, Stef Velazco and colleagues, with an educational gail from [employer] Review of Systems Const All systems reviewed & are unremarkable except as noted in HPI and below Eyes Reports no additional complaints, Denies change in vision and Denies other visual disturbances Card Denies chest pain at rest, Denies chest pain with activity, Denies edema, Denies irregular heart rhythm, Denies claudication, Denies dyspnea, Denies dyspnea on exertion, Denies orthopnea, Denies paroxysmal nocturnal dyspnea and Denies slow heart rate Resp Denies cough, Denies dyspnea and Denies dyspnea on exertion GI Denies abdominal pain, Denies change in bowel habits, Denies excessive flatus, Denies nausea and Denies vomiting Denies urinary incontinence, Denies urinary hesitancy and Denies urinary urgency Musc Denies abnormal gait, Denies atrophy, Denies deformity and Denies limited range of motion Skin/Breast Denies bleeding lesions, Denies changing lesions and Denies rash Neuro Denies abnormal gait, Denies behavioral changes, Denies confusion and Denies lack of coordination Psych Denies behavioral changes and Denies confusion Physical exam (Primary Care) Vital Signs: Last Vital Signs BP 112/80 09/09/24 17:36 BMI result Body Mass Index 29.8 Tobacco/Smoking Status: Tobacco use Status Tobacco use date assessed 11/29/23 09/09/24 17:30 Patient Tobacco Use Status Never used Tobacco 09/09/24 17:30 e-Cigarette/Vaping Use Never Used 09/09/24 17:30 Thrive Assessment: Date of Thrive Assessment Date Thrive assessed 09/07/24 09/09/24 17:30 Currently or been in a relationship where the following occur: No concerns reported Const General: No confusion Orientation/consciousness: patient oriented x3 and No confusion HENMT Head: Yes normal to inspection, Yes normocephalic and Yes atraumatic Ears: external ears normal Eyes General: appearance normal, both eyes and all related structures Eyelids: Yes eyelids normal Conjunctivae: conjunctivae normal Neck Neck: Yes normal visual inspection and Yes supple Resp Effort & Inspection: normal respiratory effort Auscultation: clear to auscultation bilaterally Cardio Jugular venous distension: no JVD Rate: regular rate Rhythm: regular rhythm Heart sounds: S1 normal heart sound present and S2 normal heart sound present GI Inspection: Yes normal to inspection Palpation (GI): Soft to palpation and nontender Auscultation: normal bowel sounds Skin General skin exam: no rashes or lesions noted Neuro General: patient oriented x3, no focal motor deficits and No confusion Extrem General: Yes full ROM Psych Appearance: grossly normal Coding Level of Care Code Est Pt Level 3 (82909) Est Pt Prev Care 40-64y(85927) Diagnoses Physical exam Z00.00 Allergic reaction T78.40XA Time Spent (min) 33 Assessment & Plan Assessment & Plan (1) Physical exam: Code(s): Z00.00 - Encounter for general adult medical examination without abnormal findings Category: Medical (2) Allergic reaction: Code(s): T78.40XA - Allergy, unspecified, initial encounter Category: Medical Plan The patient and I reviewed the results of her recent health maintenance screenings, including the mammogram and Cologuard tests. Both results were normal, and I explained the significance of these findings. We discussed the recommended intervals for these screenings, emphasizing the importance of continuing regular scans to monitor her health. I advised her that the next Cologuard screening should be scheduled for 2026, consistent with standard guidelines. Orders: Orders Lipid Panel 09/09/24 E78.5 - Hyperlipidemia, unspecified Comprehensive [place]. Panel Fast 09/09/24 Z00.00 - Encounter for general adult medical examination without abnormal findings Referrals Allergy & Immunology Referral T78.40XA - Allergy, unspecified, initial encounter Patient Instructions: - Continue routine health maintenance as advised. - Schedule next Cologuard test for 2026. - Follow any additional health screening schedules as recommended.
[2024-09-09 17:36] VITALS: BP 112/80; BMI 29.8
== END 2024-09-09 18:18 | disposition home or self-care (01) ==
PROVIDERS: PCP Internal Medicine; Visit Provider Internal Medicine
DX: Z00.00 Encounter for general adult medical examination without abnormal findings (principal); T78.40XA Allergy, unspecified, initial encounter

== ENCOUNTER → 2024-09-09 17:22 | Outpatient (BNVA) | payer OTHER, SELFPAY | PROVIDERS: PCP Internal Medicine; Visit Provider Internal Medicine | DX: Z00.00 Encounter for general adult medical examination without abnormal findings (principal); T78.40XA Allergy, unspecified, initial encounter; E78.5 Hyperlipidemia, unspecified | CPT/HCPCS: 99212; 99396 ==

== ENCOUNTER 2024-10-30 07:35 | Outpatient (REF) | payer OTHER, SELFPAY ==
--- OUTSIDE RECORDS SUMMARY | 2024-10-30 07:40 | XMS_ITS | Continuity of Care Document ---
Author Organization [facility] Address [address] [place] [address], [address] [place] [address]- Care Team Providers Care Supervisor Plating And Point Assembly Name Role Phone Eran Linton MD, Zehra Bishop Primary Care Physician [phone] [facility] Date(s): 09/06/24 - 10/06/24 [facility] [address] [place] [address], [address] [place], [place] [address] Attending Physician: AdmAneudy huff Admitting Physician: AdmtrAneudy Referring Physician: Admtr Ar8 Encounter Type: Triage Allergies, Adverse Reactions, Alerts [...] and inserted by Kimberly Plaza on 04/03/24 lot#[id number] exp#05/2026 [facility]# [id number], # 1 each, 0 Refills, Soft Stop, 04/03/24 4:00:00 PM EDT, [facility], Partial fill upon patient request if [...] Position: Reference Physician Member Role: PCP Address: [address] [place] [address] [address] [place] [address] Telecom: Care Team Related Persons Name: STANISLAW HAWKINS Insurance Providers Guarantor name: [employer] Health Plan Information #: 1 Payer: [facility] [employer] DIRECT Member Number: NA Policy Number: NA Group Number: NA
--- OUTSIDE RECORDS SUMMARY | 2024-10-30 07:40 | XMS_ITS | Continuity of Care Document ---
Author Organization [facility] Address [address] [place] [address]- Care Team Providers Care Automatic Seamer Name Role Phone Eran Linton MD, Zehra Bishop Primary Care Physician [place] [facility] [place] 09/13/24 - 10/13/24 [facility] and [address] [address]- Encounter Type: Triage Allergies, Adverse Reactions, Alerts [...] and inserted by Kimberly Plaza on 04/03/24 lot#[id number] exp#05/2026 [facility]# [id number], # 1 each, 0 Refills, Soft Stop, 04/03/24 4:00:00 PM EDT, [facility], Partial fill upon patient request [...] Position: Reference Physician Member Role: PCP Address: [address] [place] [address] Telecom: Care Team Related Persons Name: STANISLAW HAWKINS Insurance Providers Guarantor name: DIOGOJASBIR WILLIAM Health Plan Information #: 1 Payer: [employer] DIRECT Member Number: NA Policy Number: NA Group Number: NA
[2024-10-30 08:06] LABS: MANUAL DIFF FLAG NO
[2024-10-30 08:09] LABS: Basophils Percent Auto 0.7 % (0-2); Eosinophils Absolute Auto 0.1 X10*3/uL (0.0-0.4); Eosinophils Percent Auto 3.8 % (0-4); Hematocrit 37.1 % (37.0-47.0); Hemoglobin 12.7 g/dl (12.0-16.0); Lymphocytes Absolute Auto 1.4 X10*3/uL (1.2-4.9); Lymphocytes Percent Auto 48.1 % (20-40); Mean Corpuscular HGB Conc 34.2 g/dl (31.0-35.0); Mean Corpuscular Hemoglobin 30.9 pg (27.0-33.0); Mean Corpuscular Volume 90.3 fL (80.0-98.0); Monocytes Absolute Auto 0.2 X10*3/uL (0.1-1.2); Monocytes Percent Auto 7.6 % (2-11); Neutrophils Absolute Auto 1.2 x10*3/uL (2.0-8.3); Neutrophils Percent Auto 39.8 % (45-73); Platelet Count 267 X10*3/uL (160-400); Red Blood Count 4.11 X10*6/uL (4.20-5.50); Red Cell Distribution Width 12.8 % (11.0-16.0); White Blood Count 2.9 X10*3/uL (4.8-10.8)
[2024-10-30 08:36] LABS: Alanine Aminotransferase 16 U/L (0-31); Alkaline Phosphatase 93 U/L (39-117); Anion Gap 11 (12-20); Aspartate Amino Transferase 21 U/L (5-31); Bilirubin Total 0.4 mg/dL (0.0-1.0); Blood Urea Nitrogen 13 mg/dL (9-16); Calcium 8.8 mg/dL (8.4-10.2); Carbon Dioxide 26 mmol/L (22-29); Chloride 109 mmol/L (96-108); Estimated Glomerular Filt Rate > 60; Glucose Random 96 mg/dL (60-115); Sodium 142 mmol/L (135-145); Total Protein 7.6 g/dL (6.5-8.0)
== END 2024-10-30 07:36 | disposition home or self-care (01) ==
LOC: HO.LAB 07:35
PROVIDERS: PCP Internal Medicine; Visit Provider Nurse Practitioner Family
DX: L50.8 Other urticaria (principal); J30.9 Allergic rhinitis, unspecified
CPT/HCPCS: 36415; 80053; 83520; 85025; 86160; 86343

== ENCOUNTER 2024-12-11 17:01 | Outpatient (AMB) | payer OTHER, SELFPAY ==
--- NOTE | 2024-12-11 17:06 | A.OFFPC_ITS ---
Vital Signs 12/11/24 17:08 Height 5 ft 5 in Weight 187 lb BMI 31.1 BP 120/86 Blood Pressure Location Lt brachial Position Sitting Intake Visit Reasons: 3 month f/u Intake Note: Patient here for a 3 month follow up Director Of Operations For Therapy Required: Yes Director Of Operations For Therapy Language: Ear Pull Machine Operator Name: Zehra Linton MD Information Interpreted: non-clinical & clinical Accompanied by: Self / Same As Patient Allergies No Known Allergies Allergy (Verified 12/11/24 18:03) Medication List - Last Reconciled 12/11/24 by Zehra Linton MD No Known Home Meds Tobacco use date assessed: 12/11/24 Dental Screening Dental Screen Date: 12/11/24 Did you have a dental visit in the last 12 months?: No Did you have a dental problem in the last 6 months where you did not have access to dental care?: No Was dental information given to patient?: Patient has dentist HPI HPI Comments History of Present Illness Details The patient is a 49-year-old female presenting with multiple allergies and associated rashes. She reports extensive environmental and food allergies, noted specifically to animal dander, dust mites, latex, as well as food allergens such as wheat and various nuts like peanuts and hazelnuts. An allergy test report she received appears to have caused some confusion with inconsistencies and old testing errors, which led to her seeking further clarity. Historically, the patient's allergic skin reactions have been problematic, with periodic rash flare-ups attributed to these allergies. The patient had consultations with dermatology in August 2023, and there appears to be an outstanding referral to hematology. The discussions identified the need for further allergy follow-up to fully ascertain specific allergen triggers and manage these effectively. [facility] Medical History (Updated 12/11/24 @ 20:35 by Zehra Linton MD) Mild single current episode of major depressive disorder Leukopenia Class 2 obesity with body mass index (BMI) of 37.0 to 37.9 in adult Candidal intertrigo Right foot pain Skin lesion BMI 35.0-35.9,adult Vitamin A deficiency Helicobacter pylori antibody positive Back pain Morbid obesity Surgical History History of bilateral breast reduction surgery Hx laparoscopic cholecystectomy S/P laparoscopic sleeve gastrectomy Hx of section Family History Mother Asthma Father No problems noted. Sister No problems noted. Sister No problems noted. Brother No problems noted. Brother No problems noted. Son No problems noted. Daughter No problems noted. Social History Housing: House Are you a primary care asst to a significant other at home: No Do you presently have visiting nurse or other home services: No Alcohol intake: current Alcohol intake frequency: holidays/special occasions only Alcohol type: hard liquor Patient Tobacco Use Status: Never used Tobacco e-Cigarette/Vaping Use: Never Used Second Hand Smoke Exposure: No service: No Current occupational status: employed Current occupational exposures/hazards: No Cognitive needs: No Hearing needs: No Vision needs: No Questionnaire PHQ-9 Over the last 2 weeks, how often have you been bothered by any of the following problems? 1. Little interest or pleasure in doing things: not at all 2. Feeling down, depressed, or hopeless: not at all 3. Trouble falling or staying asleep, or sleeping too much: not at all 4. Feeling tired or having little energy: not at all 5. Poor appetite or overeating: not at all 6. Feeling bad about yourself - or that you are a failure or have let yourself or your family down: not at all 7. Trouble concentrating on things, such as reading the newspaper or watching television: not at all 8. Moving or speaking so slowly that other people could have noticed. Or the opposite - being so fidgety or restless that you have been moving around a lot more than usual: not at all 9. Thoughts that you would be better off or of hurting yourself in some way: not at all Total score: 0 Depression Screening Interpretation: Negative Depression Screening Done: Yes 51904 - PHQ-9 Billing: Yes Source: Developed by Drs. Papa Clark, Alley Aguilar, Stef Velazco and colleagues, with an educational gail from [employer]. Thrive Questionnaire Date Thrive assessed: 12/11/24 I am a: Patient What is your living situation today?: I have a steady place to live Within the past 12 months, did the food you bought not last and you didn't have the money to get more?: Never true Within the past 12 months, did you worry whether your food would run out before you got money to buy more?: Never true Do you have trouble paying for medicines?: No Do you have trouble getting transportation to medical appointments?: No Do you have trouble paying your heating and electricity bill?: No Do you have trouble taking care of your child, family member or friend?: No Do you have trouble with day-to-day activities such as bathing, preparing meals, shopping, managing finances, etc.?: No Are you currently unemployed and looking for a job?: Yes Are you interested in more education?: I choose not to answer this question Please select the resources that you would like help with: Care for elder or disabled Currently or been in a relationship where the following occur: No concerns reported THRIVE Score: 0 AUDIT C Alcohol Use Questionnaire (AUDIT-C) 1. How often do you have a drink containing alcohol?: Never Total Score: 0 Score Reviewed/Action Taken: No MILA-7 AMB Questionnaire MILA-7 Date MILA - 7 assessed: 12/11/24 Feeling nervous, anxious, or on edge: 0 = Not at all Not being able to stop or control worryin = Not at all Worrying too much about different things: 0 = Not at all Trouble relaxin = Not at all Being so restless that it is hard to sit still: 0 = Not at all Becoming easily annoyed or irritable: 0 = Not at all Feeling afraid as if something awful might happen: 0 = Not at all Total MILA-7 score (0-4 normal; 5-9 mild; 10-14 moderate; 15-21 severe): 0 Source: Developed by Drs. Papa Clark, Alley Aguilar, Stef Velazco and colleagues, with an educational gail from [employer]. MILA-7 Assessment Billing MILA-7 Assessment Tool: MILA-7 Assessment 65638 Review of Systems Const All systems reviewed & are unremarkable except as noted in HPI and below Card Denies chest pain at rest, Denies chest pain with activity, Denies edema, Denies irregular heart rhythm, Denies claudication, Denies orthopnea, Denies paroxysmal nocturnal dyspnea and Denies slow heart rate Physical exam (Primary Care) Vital Signs: Last Vital Signs BP 120/86 12/11/24 17:08 BMI result Body Mass Index 31.1 BMI Assessment/Plan discussion: High BMI High, discussed plan: lifestyle, weight reduction, dietary and physical activity Tobacco/Smoking Status: Tobacco use Status Tobacco use date assessed 12/11/24 12/11/24 17:14 Patient Tobacco Use Status Never used Tobacco 12/11/24 17:14 e-Cigarette/Vaping Use Never Used 12/11/24 17:14 PHQ-9: PHQ-9 Score PHQ-9: Total score 0 12/11/24 18:04 Depression Screening Interpretation: Negative Thrive Assessment: Date of Thrive Assessment Date Thrive assessed 12/11/24 12/11/24 17:14 Currently or been in a relationship where the following occur: No concerns reported Resp Effort & Inspection: normal respiratory effort Auscultation: clear to auscultation bilaterally Cardio Jugular venous distension: no JVD Rate: regular rate Rhythm: regular rhythm Heart sounds: S1 normal heart sound present and S2 normal heart sound present Extrem General: Yes full ROM Coding Level of Care Code Est Pt Level 4 (74377) Complex EM visit Add On G2211 Diagnoses Leukopenia D72.819 Multiple allergies Z88.9 Additional Codes MILA-7 Assessment Billing - MILA-7 Assessment Tool: MILA-7 Assessment 11062 ([id number]) PHQ-9 - 43339 - PHQ-9 Billing: Yes ([id number]) Time Spent (min) 22 Assessment & Plan Assessment & Plan (1) Leukopenia: Code(s): D72.819 - Decreased white blood cell count, unspecified Category: Medical (2) Multiple allergies: Code(s): Z88.9 - Allergy status to unspecified drugs, medicaments and biological substances Category: Medical Plan Allergy avoidance and management were discussed as ortiz components to the patient's care, alongside potential follow-up with both allergists and hematologists. The continuation of dietary modifications focusing on avoiding known allergens was advised, and strategies to manage her skin reactions considerately were reviewed, with a suggestion for additional dermatology oversight. The patient will continue to monitor her allergic reactions and report any changes in severity or frequency. Further examination to confirm the hematic consultation from August 2023 will be carried out to ensure thorough evaluation and intervention. Patient was informed and verbally consented to the use of an ambient scribe for clinic note documentation during this visit. Comprehensive discussions took place regarding the nature and management of her diagnosed allergies. I highlighted the importance of avoiding allergens both in the environment and dietarily?focusing on her known allergens including wheat, nuts, animal dander, and others noted in testing results. Strategies for daily management aimed at reducing exposure to these triggers were emphasized. We acknowledged the need to verify any discrepancies in past reports with up-to-date testing by an front end alignment specialist. Follow-up with hematology and dermatology was suggested to ensure unresolved issues are addressed thoroughly. The patient agreed to adhere to the avoidance measures discussed and will attend follow-up appointments to monitor and update her management plan as needed. Orders: Referrals Hematology & Oncology Referral D72.819 - Decreased white blood cell count, unspecified Patient Instructions: - Avoid all known food allergens, including wheat and nuts, and verify food labels carefully. - Schedule follow-up with an print machine operator for further testing and management advice. - Take care to minimize exposure to dust mites and keep environments well- ventilated. - Maintain dermatology appointments for rash management and further evaluation. - Continue monitoring for allergic reactions and document any changes or episodes to discuss with healthcare providers. - Follow up with hematology as discussed to ensure full evaluation since August 2023. - Contact healthcare provider with any new or worsening symptoms.
[2024-12-11 17:08] VITALS: BP 120/86; BMI 31.1
== END 2024-12-11 18:19 | disposition home or self-care (01) ==
LOC: HO.HMCH 17:01
PROVIDERS: PCP Internal Medicine; Visit Provider Internal Medicine
DX: D72.819 Decreased white blood cell count, unspecified (principal); Z88.9 Allergy status to unspecified drugs, medicaments and biological substances

== ENCOUNTER → 2024-12-11 17:01 | Outpatient (BNVA) | payer OTHER, SELFPAY | PROVIDERS: PCP Internal Medicine; Visit Provider Internal Medicine | DX: D72.819 Decreased white blood cell count, unspecified (principal); Z88.9 Allergy status to unspecified drugs, medicaments and biological substances | CPT/HCPCS: 96127; 99212 ==

== ENCOUNTER 2024-12-18 11:31 | Emergency (ER) | payer OTHER, SELFPAY ==
--- NOTE | ~2024-12-18 | XR_ITS ---
EXAMINATION: XR CHEST 2 VIEWS HISTORY: chest pain COMPARISON: Comparison is made with the prior examination dated 06/22/2021. FINDINGS: PA and lateral views of the chest are submitted. The lungs are expanded and clear. There is no pleural effusion, pneumothorax, or pulmonary vascular congestion. The heart is normal in size. The bones are intact. XR/XR chest 2V IMPRESSION: No acute cardiopulmonary abnormality. Electronically signed by: Papa Osman MD 12/18/2024 12:43 PM EDT
--- NOTE | ~2024-12-18 | XR_ITS ---
EXAMINATION: XR KNEE 3 VIEWS LEFT HISTORY: knee pain COMPARISON: There are no prior studies available for comparison. FINDINGS: Four views of the left knee are submitted. Osseous mineralization is normal. There are soft tissue calcifications adjacent to the fibular head which may be the result of old trauma. There is no acute fracture or dislocation. The joint spaces are preserved. The soft tissues are unremarkable. There is no joint effusion. XR/XR knee LT 3V IMPRESSION: No evidence of acute fracture of the left knee. Electronically signed by: Papa Osman MD 12/18/2024 12:45 PM EDT
--- NOTE | ~2024-12-18 | US_ITS ---
CLINICAL HISTORY: pain, hx of dvt Venous duplex ultrasound left lower extremity Comparison: Ultrasound of the left lower extremity from 08/04/2023 Findings: The visualized deep veins are fully compressible with unremarkable Doppler color flow and spectral tracings. Imaged superficial soft tissues are unremarkable. IMPRESSION: 1. Negative for left lower extremity deep vein thrombosis. This document has been electronically signed by: Low Martinez MD on 12/18/2024 20:43:17
--- NOTE | 2024-12-18 11:41 | ECG_ITS ---
Test Reason : CHEST PAIN Blood Pressure : */* mmHG Vent. Rate : 72 BPM Atrial Rate : 72 BPM P-R Int : 162 ms QRS Dur : 74 ms QT Int : 378 ms P-R-T Axes : 35 -10 16 degrees QTcB Int : 413 ms Normal sinus rhythm Cannot rule out Anterior infarct , age undetermined Abnormal ECG When compared with ECG of 06-Aug-2024 07:08, No significant change was found Referred By: Generic ED Physician Electronically Signed By: FARZAD MISTRY
[2024-12-18 11:55] VITALS: BP 126/84; PULSE 77; RESP 18; TEMP 36.6; O2SAT 97; BMI 31.3
--- NOTE | 2024-12-18 11:56 | ED_ITS ---
HPI - General Adult General Chief complaint: Chest Pain Stated complaint: Chest Pain, Shortness Of Breath, L Arm Pain Time Seen by Provider: 12/18/24 18:51 Source: patient and family (Spouse) Mode of arrival: ambulatory Limitations: no limitations History of Present Illness ED Provider: DR. Sherman HPI narrative: 49-year-old female came in for evaluation of multiple symptoms started this morning. Chest pain that is started as intermittent chest pain since 03:00, pain is intermittent for the last hours becoming constant but waxes and wanes, no recent travel, no history of coronary artery disease patient had a previous episode of chest pain that has been evaluated at [facility] patient stated that it was a negative cardiac workup. Patient is nonsmoker, no history of HTN, diabetes, or high cholesterol. No family history of young or heart attack. Patient has no coughing, no chest trauma or injury, no fever, chills. Patient is also complaining of left knee pain no trauma, no injury, no fall, no redness, patient is complaining of left calf pain that also started this morning, no recent travel, no recent prolonged immobilization. Patient had a remote (more than 20 years ago) history of DVT that required anticoagulation for 6 months back then. Related Data Home Medications ?Medication ?Instructions ?Recorded ?Confirmed No Known Home Meds 08/04/23 12/11/24 Allergies Allergy/AdvReac Type Severity Reaction Status Date / Time peanut Allergy Itching Verified 12/18/24 11:59 Review of Systems 2 Review of Systems: All other systems are reviewed and are negative Constitutional: Reports as per HPI and Reports no additional constitutional complaints Eyes: Reports as per HPI and Reports no additional eye complaints Reports system reviewed and no additional complaints, except as documented Cardiovascular: Reports as per HPI and Reports no additional cardiovascular complaints Respiratory: Reports as per HPI and Reports no additional respiratory complaints Gastrointestinal: Reports as per HPI and Reports no additional gastrointestinal complaints Genitourinary: Reports no additional female genitourinary complaints Musculoskeletal: Reports no additional musculoskeletal complaints Skin/Breast: Reports system reviewed and no additional complaints, except as docu Psychiatric: Reports no additional psychiatric complaints Endocrine: Reports no additional endocrine complaints Hematologic/Lymphatic: Reports no additional hematologic/lymphatic complaints Allergic/Immunologic: Reports no additional allergic/immunologic complaints Reports system reviewed and no additional complaints, except as documented and Reports Abnormal speech present [facility] Past Medical History Medical History Mild single current episode of major depressive disorder Leukopenia Class 2 obesity with body mass index (BMI) of 37.0 to 37.9 in adult Candidal intertrigo Right foot pain Skin lesion BMI 35.0-35.9,adult Vitamin A deficiency Helicobacter pylori antibody positive Back pain Morbid obesity Surgical History History of bilateral breast reduction surgery Hx laparoscopic cholecystectomy S/P laparoscopic sleeve gastrectomy Hx of section Family History Family History Mother Asthma Father No problems noted. Sister No problems noted. Sister No problems noted. Brother No problems noted. Brother No problems noted. Son No problems noted. Daughter No problems noted. Social History Social History Housing: House Are you a primary memory care program resident to a significant other at home: No Do you presently have visiting nurse or other home services: No Alcohol intake: current Alcohol intake frequency: holidays/special occasions only Alcohol type: hard liquor Patient Tobacco Use Status: Never used Tobacco e-Cigarette/Vaping Use: Never Used Second Hand Smoke Exposure: No Advance Directives: No Advance Directives Information Provided: Yes service: No Current occupational status: employed Current occupational exposures/hazards: No Cognitive needs: No Hearing needs: No Vision needs: No Physical Exam ED Vital Signs: Vital Signs - 24 hr 12/18/24 11:55 12/18/24 19:12 Temperature 98 F 98.0 F Pulse Rate 77 64 Respiratory Rate 18 12 Blood Pressure 126/84 137/76 Pulse Oximetry 97 100 Oxygen Delivery Method Room Air Room Air BMI result Body Mass Index 31.3 Vital signs have been reviewed and appear to be correct. Blood pressure elevated. Heart rate normal. Respiratory rate normal. Temperature normal. Oxygen saturation normal. Appearance: Alert. Oriented X3. No acute distress. Head: Normal external exam. Normocephalic. Atraumatic. No Britton signs noted. No raccoon eyes noted Eyes: PERRLA. EOMI. Conjunctiva and sclera normal. Eyelids normal. ENT: TM's Normal. Pharynx normal. Uvula midline. Moist mucous membranes. No trismus noted. No drooling noted. No muffled voice noted. Neck: Normal inspection. Neck supple. FROM. No adenopathy. Thyroid Normal. No meningeal signs. No neck mass noted. CVS: Normal heart rate and rhythm. Heart sound normal. No murmurs noted. Pulses normal throughout. Respiratory: No respiratory distress. Painless inspiration. Breath sounds normal. No wheezes/rales/rhonchi noted. Left upper sternal tenderness, no rebound tenderness, no deformity, No accessory muscle usage noted or decreased air movement noted. Abdomen: Soft and nontender. Bowel sounds normal in all 4 quadrants. No distention noted. No organomegaly noted. No visible injury noted. Back: No CVA tenderness. Full range of motion noted. Skin: Skin warm and dry. Normal skin color. Normal skin turgor. No rashes/lesions/lacerations noted. Extremities: No lower extremity edema. Extremities exhibit normal range of motion. Extremities nontender. Neuro: Oriented X 3. Cranial nerve exam: II-XII are grossly intact No motor deficit. No sensory deficit. Reflexes normal. Course Course Course Narrative: This is an RME: Additional HPI, ROS, PE not included below will be deferred to primary provider. RME assessment and note performed by: Zeina Sewell PA-C This is a 81-lohk-ypa-female, with a hx of GERD, LVH, s/p gastric sleeve, back pain, who presents to the ER with a complaints of multiple complaints. Patient states that she was tossing and turning this morning, states that her knee was bothering her which woke her up. She states that when she woke up at 6:45 a.m. this morning she has had intermittent chest pain and shortness of breath She states that she has had left leg pain, left arm pain, chest pain and shortness of breath since this morning. She denies any new trauma or injury to her left knee. No recent travel, surgery, hospitalizations. She is not on control. Plan: Labs, EKG, CXR, further ER eval needed Reevaluation(s) Reevaluation #1: Chest pain and left lower extremity pain, no risk for DVT, negative D-dimer, patient had unchanged EKG with negative troponin x2. Physical exam is consistent with chest wall tenderness could reflect chest wall pain versus costochondritis. Time: 20:35 Medical Decision Making Differential Diagnosis Differential Diagnoses: The differential diagnosis associated with the presentation includes (ACS, pneumonia, pneumothorax, pleural effusion, pulmonary embolism, DVT, costochondritis, chest wall pain, left knee derangement) Admission/Observation Consideration of admission/observation: Escalation of care including admission/observation considered Lab Data MDM Lab Attestation statement: I reviewed the patient's lab results. 12/18/24 13:14 12/18/24 13:14 Labs: Lab Results 12/18/24 12/18/24 Range/Units 13:14 19:54 WBC 3.9 L (4.8-10.8) X10*3/uL RBC 4.27 (4.20-5.50) X10*6/uL Hgb 12.9 (12.0-16.0) g/dl Hct 38.5 (37.0-47.0) % MCV 90.2 (80.0-98.0) fL MCH 30.2 (27.0-33.0) pg MCHC 33.5 (31.0-35.0) g/dl RDW 12.4 (11.0-16.0) % Plt Count 250 (160-400) X10*3/uL MPV 9.5 (9.4-12.3) fL Immature Gran % (Auto) 0.3 (0.0-0.4) % Neut % (Auto) 47.2 (45-73) % Lymph % (Auto) 44.0 H (20-40) % Bent % (Auto) 5.2 (2-11) % Eos % (Auto) 2.8 (0-4) % Baso % (Auto) 0.5 (0-2) % Lymph # (Auto) 1.7 (1.2-4.9) X10*3/uL Bent # (Auto) 0.2 (0.1-1.2) X10*3/uL Eos # (Auto) 0.1 (0.0-0.4) X10*3/uL Baso # (Auto) 0.0 (0.0-0.2) X10*3/uL Abs Immat Gran (auto) 0.01 (0.00-0.03) X10*3/uL Absolute Neuts (auto) 1.8 L (2.0-8.3) x10*3/uL Absolute Nucleated RBC 0.000 (0.0-0.012) X10*3/uL Nucleated RBC % (auto) 0.0 (0.0-0.2) /100WBC D-Dimer High Sensitivty < 150 NG/ML Sodium 141 (135-145) mmol/L Potassium 4.2 (3.3-5.1) mmol/L Chloride 108 (96-108) mmol/L Carbon Dioxide 27 (22-29) mmol/L Anion Gap 10 L (12-20) BUN 11 (9-16) mg/dL Creatinine 0.72 (0.5-1.4) mg/dL Estim Creat Clear Calc 102.9 Estimated GFR > 60 Random Glucose 109 (60-115) mg/dL Calcium 9.0 (8.4-10.2) mg/dL Magnesium 2.0 (1.6-2.6) mg/dL Total Bilirubin 0.3 (0.0-1.0) mg/dL Direct Bilirubin 0.1 (0.0-0.5) mg/dL AST 20 (5-31) U/L ALT 13 (0-31) U/L Alkaline Phosphatase 96 (39-117) U/L Troponin I High Sens < 2.7 < 2.7 (<3.5-17.0) ng/L B-Natriuretic Peptide 22 (<100) pg/mL Total Protein 7.1 (6.5-8.0) g/dL Albumin 4.1 (3.5-5.0) g/dL Influenza Type A (PCR) NEGATIVE (Negative) Influenza Type B (PCR) NEGATIVE (Negative) RSV RNA Qual (PCR) NEGATIVE (Negative) SARS-CoV-2 RNA (RT-PCR) NEGATIVE (Negative) Independent Interpretation I performed an independent interpretation of an: Plain X-Ray (Chest: No acute cardiopulmonary abnormality, left knee x-ray no evidence of acute fracture.) and Ultrasound (Left lower extremity ultrasound: No DVT.) Radiology Impression Discussion of test interpretation with radiology: I have reviewed the radiologist's reading. Discharge Plan Discharge Clinical Impression: Chest pain, Acute costochondritis, Internal derangement of knee Patient Disposition: Home, Self-Care Instructions: Costochondritis (ED) Prescriptions: No Action No Known Home Meds Print Language: [place]
[2024-12-18 13:23] LABS: MANUAL DIFF FLAG NO
[2024-12-18 13:29] LABS: Basophils Percent Auto 0.5 % (0-2); Eosinophils Absolute Auto 0.1 X10*3/uL (0.0-0.4); Eosinophils Percent Auto 2.8 % (0-4); Hematocrit 38.5 % (37.0-47.0); Hemoglobin 12.9 g/dl (12.0-16.0); Imm Gran Abs Auto 0.01 X10*3/uL (0.00-0.03); Imm Gran Pct Auto 0.3 % (0.0-0.4); Lymphocytes Absolute Auto 1.7 X10*3/uL (1.2-4.9); Mean Corpuscular HGB Conc 33.5 g/dl (31.0-35.0); Mean Corpuscular Hemoglobin 30.2 pg (27.0-33.0); Mean Corpuscular Volume 90.2 fL (80.0-98.0); Mean Platelet Volume 9.5 fL (9.4-12.3); Monocytes Absolute Auto 0.2 X10*3/uL (0.1-1.2); Monocytes Percent Auto 5.2 % (2-11); Neutrophils Absolute Auto 1.8 x10*3/uL (2.0-8.3); Neutrophils Percent Auto 47.2 % (45-73); Platelet Count 250 X10*3/uL (160-400); Red Blood Count 4.27 X10*6/uL (4.20-5.50); Red Cell Distribution Width 12.4 % (11.0-16.0); White Blood Count 3.9 X10*3/uL (4.8-10.8)
[2024-12-18 13:55] LABS: B Type Natriuretic Peptide 22 pg/mL (<100)
[2024-12-18 13:57] LABS: Alanine Aminotransferase 13 U/L (0-31); Albumin Level 4.1 g/dL (3.5-5.0); Alkaline Phosphatase 96 U/L (39-117); Anion Gap 10 (12-20); Aspartate Amino Transferase 20 U/L (5-31); Bilirubin Direct 0.1 mg/dL (0.0-0.5); Bilirubin Total 0.3 mg/dL (0.0-1.0); Blood Urea Nitrogen 11 mg/dL (9-16); Carbon Dioxide 27 mmol/L (22-29); Chloride 108 mmol/L (96-108); Creatinine Clr Calc Pharmacy 102.9; Estimated Glomerular Filt Rate > 60; Glucose Random 109 mg/dL (60-115); Potassium 4.2 mmol/L (3.3-5.1); Sodium 141 mmol/L (135-145); Total Protein 7.1 g/dL (6.5-8.0)
[2024-12-18 14:03] LABS: Influenza A PCR NEGATIVE (Negative); Influenza B PCR NEGATIVE (Negative); Resp Syncy Virus RNA Qual PCR NEGATIVE (Negative); SARS COV2 PCR INHOUSE NEGATIVE (Negative)
[2024-12-18 14:13] LABS: Troponin-I High Sensitivity < 2.7 ng/L (<3.5-17.0)
[2024-12-18 19:12] VITALS: BP 137/76; PULSE 64; RESP 12; TEMP 36.7; O2SAT 100
[2024-12-18 20:00] VITALS: BP 120/66; PULSE 70; RESP 18; TEMP 36.5; O2SAT 100
[2024-12-18 20:20] LABS: D Dimer High Sensitivity < 150 NG/ML
[2024-12-18 20:23] LABS: Troponin-I High Sensitivity < 2.7 ng/L (<3.5-17.0)
[2024-12-18 21:58] VITALS: BP 120/66; PULSE 70; RESP 18; TEMP 36.5; O2SAT 100
== END 2024-12-18 21:30 | disposition home or self-care (01) ==
PROVIDERS: Physician Assistant Medical; Emergency Provider Emergency Medicine; PCP Internal Medicine
DX: M94.0 Chondrocostal junction syndrome [Tietze] (principal); R07.89 Other chest pain; R06.02 Shortness of breath; M79.602 Pain in left arm; M23.92 Unspecified internal derangement of left knee; R60.0 Localized edema; Z03.818 Encounter for observation for suspected exposure to other biological agents ruled out; Z79.899 Other long term (current) drug therapy
CPT/HCPCS: 0241U; 36415; 71046; 73562; 80048; 80076; 83735; 83880; 84484; 85025; 85379; 93005; 93971; 99284; 99285

== ENCOUNTER → 2024-12-18 11:41 | Outpatient (BNV) | payer OTHER, SELFPAY | PROVIDERS: Emergency Provider Emergency Medicine; PCP Internal Medicine; Visit Provider Internal Medicine | DX: R94.31 Abnormal electrocardiogram [ECG] [EKG] (principal); R07.9 Chest pain, unspecified | CPT/HCPCS: 93010 ==

== ENCOUNTER → 2024-12-18 11:59 | Outpatient (BNV) | payer OTHER, SELFPAY | PROVIDERS: PCP Internal Medicine; Visit Provider Radiology Diagnostic Radiology | DX: M79.662 Pain in left lower leg (principal); R07.9 Chest pain, unspecified; M25.562 Pain in left knee | CPT/HCPCS: 71046; 73562; 93971 ==

== ENCOUNTER 2024-12-30 13:38 | Outpatient (AMB) | payer OTHER, SELFPAY ==
--- NOTE | 2024-12-30 13:47 | AM.OFFVISNUR ---
Intake Visit Reasons: PPD Plant Allergies peanut Allergy (Verified 12/18/24 11:59) Itching Office Meds tuberculin PPD 5 tub. unit/0.1 mL intradermal injection solution Performing Provider: Zehra Linton MD [facility] Administered by: Janna Corrales LPN on 12/30/24 13:47 Dose Route Admin Location Dispensed Lot Number Expiration Date [employer] 0.1 mL intradermal left forearm 0.1 mL [id number] 08/17/27 27011-999-23 [employer] Assessment & Plan Assessment & Plan Orders: Orders AMB PPD Planted Today Z11.1 - Encounter for screening for respiratory tuberculosis Medications: New tuberculin PPD 0.1 mL intradermal ONCE 0.1 mL 0RF Z11.1 - Encounter for screening for respiratory tuberculosis Coding
== END 2024-12-30 13:48 | disposition home or self-care (01) ==
LOC: HO.HMCH 13:38
PROVIDERS: PCP Internal Medicine; Visit Provider Internal Medicine
DX: Z11.1 Encounter for screening for respiratory tuberculosis (principal)

== ENCOUNTER → 2024-12-30 13:38 | Outpatient (BNVA) | payer OTHER, SELFPAY | PROVIDERS: PCP Internal Medicine; Visit Provider Internal Medicine | DX: Z11.1 Encounter for screening for respiratory tuberculosis (principal) | CPT/HCPCS: 86580 ==

== ENCOUNTER → 2025-01-01 13:36 | Outpatient (BNVA) | payer OTHER, SELFPAY | PROVIDERS: PCP Internal Medicine; Visit Provider Internal Medicine | DX: Z13.89 Encounter for screening for other disorder (principal) ==

== ENCOUNTER 2025-01-15 14:17 | Outpatient (REF) | payer OTHER, SELFPAY ==
[2025-01-15 16:05] LABS: MANUAL DIFF FLAG NO
[2025-01-15 16:13] LABS: Basophils Percent Auto 0.8 % (0-2); Eosinophils Absolute Auto 0.2 X10*3/uL (0.0-0.4); Eosinophils Percent Auto 6.8 % (0-4); Hematocrit 37.6 % (37.0-47.0); Hemoglobin 12.7 g/dl (12.0-16.0); Imm Gran Abs Auto 0.01 X10*3/uL (0.00-0.03); Imm Gran Pct Auto 0.3 % (0.0-0.4); Lymphocytes Absolute Auto 1.7 X10*3/uL (1.2-4.9); Lymphocytes Percent Auto 48.5 % (20-40); Mean Corpuscular HGB Conc 33.8 g/dl (31.0-35.0); Mean Corpuscular Hemoglobin 30.6 pg (27.0-33.0); Mean Corpuscular Volume 90.6 fL (80.0-98.0); Mean Platelet Volume 9.2 fL (9.4-12.3); Monocytes Absolute Auto 0.2 X10*3/uL (0.1-1.2); Monocytes Percent Auto 6.8 % (2-11); Neutrophils Absolute Auto 1.3 x10*3/uL (2.0-8.3); Neutrophils Percent Auto 36.8 % (45-73); Platelet Count 251 X10*3/uL (160-400); Red Blood Count 4.15 X10*6/uL (4.20-5.50); Red Cell Distribution Width 12.6 % (11.0-16.0); White Blood Count 3.6 X10*3/uL (4.8-10.8)
[2025-01-15 16:37] LABS: Rheumatoid Factor < 13.0 IU/mL (<15.0)
[2025-01-15 16:39] LABS: Alanine Aminotransferase 19 U/L (0-31); Albumin Level 4.2 g/dL (3.5-5.0); Alkaline Phosphatase 95 U/L (39-117); Anion Gap 13 (12-20); Aspartate Amino Transferase 20 U/L (5-31); Bilirubin Total 0.2 mg/dL (0.0-1.0); Blood Urea Nitrogen 14 mg/dL (9-16); Calcium 8.8 mg/dL (8.4-10.2); Carbon Dioxide 28 mmol/L (22-29); Chloride 103 mmol/L (96-108); Cholesterol 133 mg/dL (<200); Estimated Glomerular Filt Rate > 60; Glucose Fasting 91 mg/dL (60-99); HDL Cholesterol 40 mg/dL (>40); LDL Cholesterol Calculated 84 mg/dL (<100); Potassium 4.1 mmol/L (3.3-5.1); Sodium 140 mmol/L (135-145); Total Protein 7.3 g/dL (6.5-8.0); Triglycerides 46 mg/dL (<150)
[2025-01-15 16:50] LABS: Erythrocyte Sedimentation Rate 16 MM/HR (0-20)
[2025-01-15 16:59] LABS: TSH reflex Free T4 0.71 uIU/mL (0.32-4.0)
[2025-01-16 05:38] LABS: Lyme Abs Screen <0.90 index
[2025-01-17 10:18] LABS: Anti Nuclear Antibody Screen NEGATIVE (NEGATIVE)
[2025-01-20 18:04] LABS: Cyclic Citrullinated Peptide <16 UNITS
== END 2025-01-15 14:18 | disposition home or self-care (01) ==
LOC: HO.LAB 14:17
PROVIDERS: PCP Internal Medicine
DX: M79.18 Myalgia, other site (principal); M25.50 Pain in unspecified joint; G62.9 Polyneuropathy, unspecified; R53.83 Other fatigue; J30.9 Allergic rhinitis, unspecified; R07.9 Chest pain, unspecified; Z00.00 Encounter for general adult medical examination without abnormal findings; E78.5 Hyperlipidemia, unspecified
CPT/HCPCS: 36415; 80053; 80061; 84443; 85025; 85652; 86038; 86141; 86200; 86431; 86617; 86618; 99212

== ENCOUNTER 2025-01-15 14:17 | Outpatient (AMB) | payer OTHER, SELFPAY ==
--- NOTE | 2025-01-15 14:21 | MHC.PC.OV ---
Vital Signs 01/15/25 14:22 Height 5 ft 5 in Weight 190 lb BMI 31.6 BP 110/70 Blood Pressure Location Lt brachial Position Sitting Respiration 20 Pulse 79 Pulse Source Pulse Oximeter Temp 97.7 F Temp Source Oral Pulse Oximetry (%) 97 Oxygen Delivery Method Room Air Intake Visit Reasons: [facility] 12/23/24 pain in left and chest pain Intake Note: Patient is here to follow-up after a visit the emergency department at [facility] in [place], [place] on 12/18/2024. 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 Accompanied by: Self / Same As Patient Allergies peanut Allergy (Verified 01/15/25 15:05) Itching Medication List - Last Reconciled 01/15/25 by ANDIE Galdamez No Known Home Meds Tobacco use date assessed: 01/15/25 Dental Screening Dental Screen Date: 01/15/25 Did you have a dental visit in the last 12 months?: Yes Did you have a dental problem in the last 6 months where you did not have access to dental care?: No Was dental information given to patient?: Patient has dentist HPI [facility] 12/23/24 pain in left and chest pain HPI Details The patient with significant past medical history of multiple allergies. Has a post [facility] ER follow appt, after presenting in the ER with complaints of chest pain. The patient is a 49-year-old female presenting with widespread pain in the legs and arms, accompanied by seasonal allergies. She describes experiencing intermittent, sporadic pain resembling nerve pain, with sensations of numbing, tingling, and pins and needles, occurring in various parts of the body, including the joints. The pain has been progressively worsening, with no clear inciting event. The patient's history of a deep vein thrombosis in the right leg several years ago was considered during a recent emergency room visit, where clot formation was ruled out. She reports episodes of chest pain, which initially led her to seek emergency care. While the chest pain has improved, certain environmental allergens continue to exacerbate her symptoms. In addition, she reports breathing difficulties at night, which she attributes to her allergy symptoms causing nasal congestion. These symptoms are reportedly influencing her sleep and daily functioning. The patient's history includes episodic fainting without a clear etiology, noted approximately one year ago. A previous anemia diagnosis revealed low iron levels, prompting an upcoming evaluation with hematology. [facility] Medical History Mild single current episode of major depressive disorder Leukopenia Class 2 obesity with body mass index (BMI) of 37.0 to 37.9 in adult Candidal intertrigo Right foot pain Skin lesion BMI 35.0-35.9,adult Vitamin A deficiency Helicobacter pylori antibody positive Back pain Morbid obesity Surgical History History of bilateral breast reduction surgery Hx laparoscopic cholecystectomy S/P laparoscopic sleeve gastrectomy Hx of section Family History Mother Asthma Father No problems noted. Sister No problems noted. Sister No problems noted. Brother No problems noted. Brother No problems noted. Son No problems noted. Daughter No problems noted. Social History Housing: House Are you a primary child day care provider to a significant other at home: No Do you presently have visiting nurse or other home services: No Alcohol intake: current Alcohol intake frequency: holidays/special occasions only Alcohol type: hard liquor Patient Tobacco Use Status: Never used Tobacco e-Cigarette/Vaping Use: Never Used Second Hand Smoke Exposure: No service: No Current occupational status: employed Current occupational exposures/hazards: No Cognitive needs: No Hearing needs: No Vision needs: No Questionnaire PHQ-9 Over the last 2 weeks, how often have you been bothered by any of the following problems? 1. Little interest or pleasure in doing things: not at all 2. Feeling down, depressed, or hopeless: not at all 3. Trouble falling or staying asleep, or sleeping too much: not at all 4. Feeling tired or having little energy: not at all 5. Poor appetite or overeating: not at all 6. Feeling bad about yourself - or that you are a failure or have let yourself or your family down: not at all 7. Trouble concentrating on things, such as reading the newspaper or watching television: not at all 8. Moving or speaking so slowly that other people could have noticed. Or the opposite - being so fidgety or restless that you have been moving around a lot more than usual: not at all 9. Thoughts that you would be better off or of hurting yourself in some way: not at all Total score: 0 Depression Screening Interpretation: Negative Depression Screening Done: Yes Source: Developed by Drs. Papa Clark, Alley Aguilar, Stef Velazco and colleagues, with an educational gail from [employer]. Thrive Questionnaire Date Thrive assessed: 01/15/25 I am a: Patient What is your living situation today?: I have a steady place to live Within the past 12 months, did the food you bought not last and you didn't have the money to get more?: I choose not to answer this question Within the past 12 months, did you worry whether your food would run out before you got money to buy more?: I choose not to answer this question Do you have trouble paying for medicines?: I choose not to answer this question Do you have trouble getting transportation to medical appointments?: I choose not to answer this question Do you have trouble paying your heating and electricity bill?: I choose not to answer this question Do you have trouble taking care of your child, family member or friend?: I choose not to answer this question Do you have trouble with day-to-day activities such as bathing, preparing meals, shopping, managing finances, etc.?: I choose not to answer this question Are you currently unemployed and looking for a job?: I choose not to answer this question Are you interested in more education?: I choose not to answer this question Please select the resources that you would like help with: None Currently or been in a relationship where the following occur: I choose not to answer THRIVE Score: 0 AUDIT C Alcohol Use Questionnaire (AUDIT-C) 1. How often do you have a drink containing alcohol?: Never Total Score: 0 Score Reviewed/Action Taken: No MILA-7 AMB Questionnaire MILA-7 Date MILA - 7 assessed: 01/15/25 Feeling nervous, anxious, or on edge: 0 = Not at all Not being able to stop or control worryin = Not at all Worrying too much about different things: 0 = Not at all Trouble relaxin = Not at all Being so restless that it is hard to sit still: 0 = Not at all Becoming easily annoyed or irritable: 0 = Not at all Feeling afraid as if something awful might happen: 0 = Not at all Total MILA-7 score (0-4 normal; 5-9 mild; 10-14 moderate; 15-21 severe): 0 Source: Developed by Drs. Papa Clark, Alley Aguilar, Stef Velazco and colleagues, with an educational gail from [employer]. Review of Systems Const Details: - Musculoskeletal: Reports widespread joint and muscle pain, including sensations of numbness and tingling. - Respiratory: Reports difficulty breathing at night, denies continuous cough. - Dermatological: Describes episodic skin redness and itchiness, particularly during allergic reactions. - Neurological: Denies chronic headaches or consistent back pain; reports past fainting episode. - Allergy/Immunology: Reports severe seasonal allergy symptoms including nasal congestion and possible asthma-like symptoms. - Hematologic: History of anemia with previously low iron levels. Reports headache(s) (chronic) Eyes Denies loss of vision ENT Denies vertigo, Denies dizziness, Reports headache(s) (chronic), Reports nasal congestion and Denies sore throat Card Denies chest pain, Denies leg edema, Denies lightheadedness and Reports dyspnea (at night) Resp Denies cough, Denies hemoptysis, Reports dyspnea (at night) and Denies wheezing GI Denies abdominal pain, Denies melena, Denies constipation, Denies diarrhea and Denies vomiting Denies urinary frequency, Denies dysuria and Denies urinary urgency Musc Reports back pain (chronic), Reports arthralgias (multiple joints), Denies joint swelling, Reports muscle cramps (widespread), Reports numbness (varies in different extremities) and Reports tingling (varies in different extremities) Skin/Breast Reports other (intermittent redness and itchiness during times of allergies-none now) Neuro Denies Abnormal speech present, Denies behavioral changes, Denies vertigo, Denies dizziness, Reports headache(s) (chronic), Denies loss of vision, Denies memory loss, Reports numbness (varies in different extremities) and Reports tingling (varies in different extremities) Psych Denies anxiety, Denies behavioral changes, Denies depression, Denies memory loss and Denies panic attacks Reed/Lymph Denies easy bleeding and Denies easy bruising Aller/Immun Denies wheezing Physical exam (Primary Care) Vital Signs: Last Vital Signs Temp 97.7 F 01/15/25 14:22 Pulse 79 01/15/25 14:22 Resp 20 01/15/25 14:22 BP 110/70 01/15/25 14:22 Pulse Ox 97 01/15/25 14:22 Oxygen Delivery Method Room Air 01/15/25 14:22 BMI result Body Mass Index 31.6 Tobacco/Smoking Status: Tobacco use Status Tobacco use date assessed 01/15/25 01/15/25 14:31 Patient Tobacco Use Status Never used Tobacco 01/15/25 14:31 e-Cigarette/Vaping Use Never Used 01/15/25 14:31 PHQ-9: PHQ-9 Score PHQ-9: Total score 0 01/15/25 23:04 Depression Screening Interpretation: Negative Thrive Assessment: Date of Thrive Assessment Date Thrive assessed 01/15/25 01/15/25 14:31 Currently or been in a relationship where the following occur: I choose not to answer Const General: healthy appearing, no acute distress, alert and awake Nutritional Appearance: well nourished Orientation/consciousness: oriented to person, oriented to place and oriented to time HENMT Ears: TM's normal bilaterally General nose exam: Abnormal mucous membranes and turbinates present boggy and erythematous and no nasal discharge noted Throat: Yes posterior oropharynx normal Eyes Conjunctivae: conjunctivae normal Sclerae: sclerae normal Pupils: Equal, round and reactive pupils present Neck Neck: Yes no lymphadenopathy and Yes no JVD Thyroid: Thyroid normal Carotids: no bruits Resp Effort & Inspection: normal respiratory effort and not tachypneic Auscultation: no crackles, no rales, no rhonchi and no wheezes Cardio Rate: regular rate Rhythm: regular rhythm Heart sounds: no murmurs and normal S1 and S2 GI Palpation (GI): Soft to palpation, nontender, no hepatomegaly and no splenomegaly Auscultation: normal bowel sounds Skin General skin exam: no rashes or lesions noted and dry skin Neuro General: oriented to person, oriented to place and oriented to time Cranial nerves: Yes Equal, round and reactive pupils present Speech: No Abnormal speech present Gait exam (Neuro): Normal gait present Motor exam (neuro): no tremor noted Extrem Right upper extremity: full ROM Left upper extremity: full ROM Right lower extremity: full ROM; no edema Left lower extremity: full ROM; no edema Psych Mental Status: mental status grossly normal Speech and movement: Normal speech and movement present Affect: normal affect Attitude: cooperative Thought process: Normal thought process present Coding Level of Care Code Est Pt Level 4 (07021) Diagnoses Pain in multiple muscles M79.18 Pain, joint, multiple sites M25.50 Neuropathy G62.9 Fatigue, unspecified type R53.83 Fatigue type: unspecified Allergic rhinitis, unspecified seasonality, unspecified trigger J30.9 Allergic rhinitis trigger: unspecified Allergic rhinitis seasonality: unspecified Chest pain, unspecified type R07.9 Chest pain type: unspecified Time Spent (min) 39 Assessment & Plan Assessment & Plan (1) Pain in multiple muscles: Code(s): M79.18 - Myalgia, other site Category: Medical (2) Pain, joint, multiple sites: Code(s): M25.50 - Pain in unspecified joint Category: Medical (3) Neuropathy: Code(s): G62.9 - Polyneuropathy, unspecified Category: Medical (4) Fatigue: Code(s): R53.83 - Other fatigue Category: Medical Qualifiers: Fatigue type: unspecified Qualified Code(s): R53.83 - Other fatigue (5) Allergic rhinitis: Code(s): J30.9 - Allergic rhinitis, unspecified Category: Medical Qualifiers: Allergic rhinitis trigger: unspecified Allergic rhinitis seasonality: unspecified Qualified Code(s): J30.9 - Allergic rhinitis, unspecified (6) Chest pain: Code(s): R07.9 - Chest pain, unspecified Category: Medical Qualifiers: Chest pain type: unspecified Qualified Code(s): R07.9 - Chest pain, unspecified Plan Gabapentin will be started to manage nerve-related pain, beginning with a 100mg dose taken at bedtime. Flonase is prescribed to alleviate nasal congestion, with Claritin recommended for ongoing allergy symptoms. Offered rescue inhaler, but he patient is hesitant, stating that she does not think that she has asthma. Further specialist consultation may be considered based on future lab results, examining potential thyroid involvement and autoimmune conditions. Pending testing will determine the course of future management and the potential need for rheumatologic evaluation. Chest pain resolved. Continue to monitor, return to ED if chest pain returns. Widespread muscle aches and pain-encourage activity as tolerated, increased fluids hydration. Maintain appt with hematology for anemia; might explain the patient tiredness. Multiple joints involvement-will r/o Lyme as well. The patient to contact office if symptoms worsens are not resolving. Patient was informed and verbally consented to the use of an ambient scribe for clinic note documentation during this visit. Orders: Orders SHAMIKA Reflex Titer and Pattern 01/15/25 G62.9 - Polyneuropathy, unspecified, M25.50 - Pain in unspecified joint, M79.18 - Myalgia, other site, R53.83 - Other fatigue CRP High Sensitivity 01/15/25 G6.9 - Polyneuropathy, unspecified, M25.50 - Pain in unspecified joint, M79.18 - Myalgia, other site, R53.83 - Other fatigue TSH reflex Free T4 01/15/25 G62.9 - Polyneuropathy, unspecified, M25.50 - Pain in unspecified joint, M79.18 - Myalgia, other site, R53.83 - Other fatigue Cyclic Citrullinated Peptide 01/15/25 G62.9 - Polyneuropathy, unspecified, M25.50 - Pain in unspecified joint, M79.18 - Myalgia, other site, R53.83 - Other fatigue Erythrocyte Sedimentation Rate 01/15/25 G62.9 - Polyneuropathy, unspecified, M25.50 - Pain in unspecified joint, M79.18 - Myalgia, other site, R53.83 - Other fatigue Complete Blood Count Auto Diff 01/15/25 G62.9 - Polyneuropathy, unspecified, M25.50 - Pain in unspecified joint, M79.18 - Myalgia, other site, R53.83 - Other fatigue Rheumatoid Factor 01/15/25 G6.9 - Polyneuropathy, unspecified, M25.50 - Pain in unspecified joint, M79.18 - Myalgia, other site, R53.83 - Other fatigue Lyme IgG/IgM w/reflex to WB 01/15/25 G6.9 - Polyneuropathy, unspecified, M25.50 - Pain in unspecified joint, M79.18 - Myalgia, other site, R53.83 - Other fatigue Medications: New gabapentin 100 mg PO TID 30 days 90 caps 1RF fluticasone propionate 50 mcg/actuation administer into each nostril 2 sprays intranasal BID 16 grams 0RF Patient Instructions: - Take Gabapentin 100mg at bedtime as needed for pain. - Use Flonase nasal spray as directed for congestion. - Take Claritin daily for allergies. - Follow up with lab results for guidance on future treatment. - Seek care if breathing difficulties worsen or if experiencing new symptoms. - Continue using green and red juices as they improve energy levels.
[2025-01-15 14:22] VITALS: BP 110/70; PULSE 79; RESP 20; TEMP 36.5; O2SAT 97; BMI 31.6
== END 2025-01-15 16:04 | disposition home or self-care (01) ==
LOC: HO.HMCH 14:18
PROVIDERS: PCP Internal Medicine
DX: M79.18 Myalgia, other site (principal); M25.50 Pain in unspecified joint; G62.9 Polyneuropathy, unspecified; R53.83 Other fatigue; J30.9 Allergic rhinitis, unspecified; R07.9 Chest pain, unspecified

== ENCOUNTER → 2025-01-22 14:25 | Outpatient (BNV) | payer OTHER, SELFPAY | PROVIDERS: PCP Internal Medicine; Referring Provider Internal Medicine; Visit Provider Internal Medicine | DX: D72.819 Decreased white blood cell count, unspecified (principal) | CPT/HCPCS: 99204 ==

== ENCOUNTER 2025-03-24 15:30 | Outpatient (AMB) | payer OTHER, SELFPAY ==
--- NOTE | 2025-03-24 15:31 | A.OFFVIS_ITS ---
VS Expanded 03/24/25 15:33 Height 5 ft 5 in Weight 192 lb BMI 31.9 Intake Visit Reasons: (TV) PO LSG 05/11/22 Allergies peanut Allergy (Verified 02/27/25 08:30) Itching Medication List - Last Reconciled 03/24/25 by MILTON Pappas fluticasone propionate 50 mcg/actuation 2 sprays intranasal BID gabapentin 100 mg PO TID 30 days HPI Comments Details: This?is a?49?yo F who is s/p LSG 05/11/2022. Presents for 3 year post op visit. Weight gain of 29lbs since last OV in February 2023. No complaints of nausea, emesis, abdominal pain or reflux, or constipation. Had surgery in August- breast reduction, had to stop exercise at that time. Present meal plan includes: given this plan at last visit- 70g protein per day via breakfast: Fairlife 42g protein shake lunch 3oz protein, 3oz veg dinner 3oz protein, 3oz veg Exercise routine includes: restricted by weight lifting in upper body after surgery [facility] Medical History Mild single current episode of major depressive disorder Leukopenia Class 2 obesity with body mass index (BMI) of 37.0 to 37.9 in adult Candidal intertrigo Right foot pain Skin lesion BMI 35.0-35.9,adult Vitamin A deficiency Helicobacter pylori antibody positive Back pain Morbid obesity Surgical History History of bilateral breast reduction surgery Hx laparoscopic cholecystectomy S/P laparoscopic sleeve gastrectomy Hx of section Family History Mother Asthma Father No problems noted. Sister No problems noted. Sister No problems noted. Brother No problems noted. Brother No problems noted. Son No problems noted. Daughter No problems noted. Social History Housing: House Are you a primary primary care coordinator to a significant other at home: No Do you presently have visiting nurse or other home services: No Alcohol intake: current Alcohol intake frequency: holidays/special occasions only Alcohol type: hard liquor Patient Tobacco Use Status: Never used Tobacco e-Cigarette/Vaping Use: Never Used Second Hand Smoke Exposure: No service: No Current occupational status: employed Current occupational exposures/hazards: No Cognitive needs: No Hearing needs: No Vision needs: No Physical Exam Vital Signs: BMI result Body Mass Index 31.9 Telehealth Telehealth Telehealth Platform: Telephone Location of provider rendering services: other Location of patient: address on file Patient Identification confirmed using: Name, : Yes Telehealth method: voice only Patient verbally consented to treatment: Yes Patient verbally consented to billing insurance company: Yes Patient informed of any privacy concerns related to visit: Yes Minutes spent on Phone/Video with Pt.: 14 Assessment & Plan Assessment & Plan (1) Obesity: Code(s): E66.9 - Obesity, unspecified Category: Medical (2) S/P laparoscopic sleeve gastrectomy: Comment: 05/11/22 Code(s): Z98.84 - Bariatric surgery status Category: Medical Plan Gave pt Sapheon cindy download info and encouraged her to follow a plan created on the cindy. Also encouraged her to text me weekly on Mondays with weight measurements for accountability. Orders: Orders TSH reflex Free T4 Today Z98.84 - Bariatric surgery status C Reactive Protein Today Z98.84 - Bariatric surgery status Zinc Today Z98.84 - Bariatric surgery status Vitamin B12 and Folate Today Z98.84 - Bariatric surgery status Comprehensive Met. Panel Today Z98.84 - Bariatric surgery status Complete Blood Count Auto Diff Today Z98.84 - Bariatric surgery status IRON PROFILE Today Z98.84 - Bariatric surgery status Hemoglobin A1c Today Z98.84 - Bariatric surgery status Insulin Today Z98.84 - Bariatric surgery status Vitamin D 25-OH Total Today Z98.84 - Bariatric surgery status Ferritin Today Z98.84 - Bariatric surgery status Vitamin B1 Today Z98.84 - Bariatric surgery status Vitamin A Today Z98.84 - Bariatric surgery status Lipid Panel Today Z98.84 - Bariatric surgery status
[2025-03-24 15:33] VITALS: BMI 31.9
== END 2025-03-24 18:55 | disposition home or self-care (01) ==
LOC: HO.HBS 15:44
PROVIDERS: PCP Internal Medicine; Visit Provider Physician Assistant Surgical
DX: E66.9 Obesity, unspecified (principal); Z98.84 Bariatric surgery status
CPT/HCPCS: 99214; G2211

== ENCOUNTER 2025-03-27 07:32 | Outpatient (REF) | payer OTHER, SELFPAY ==
[2025-03-27 07:46] LABS: MANUAL DIFF FLAG NO
[2025-03-27 08:17] LABS: Hematocrit 35.9 % (37.0-47.0); Hemoglobin 12.2 g/dl (12.0-16.0); Imm Gran Abs Auto 0.01 X10*3/uL (0.00-0.03); Imm Gran Pct Auto 0.3 % (0.0-0.4); Lymphocytes Absolute Auto 1.5 X10*3/uL (1.2-4.9); Mean Corpuscular HGB Conc 34.0 g/dl (31.0-35.0); Mean Corpuscular Hemoglobin 30.5 pg (27.0-33.0); Mean Corpuscular Volume 89.8 fL (80.0-98.0); NRBC Abs Auto 0.000 X10*3/uL (0.0-0.012); NRBC Pct Auto 0.0 /100WBC (0.0-0.2); Platelet Count 290 X10*3/uL (160-400); Red Blood Count 4.00 X10*6/uL (4.20-5.50); White Blood Count 3.3 X10*3/uL (4.8-10.8)
[2025-03-27 08:35] LABS: Hemoglobin A1C 116.0591 umol/L; Total Hemoglobin (HGBA1C) 3166.9277 umol/L
[2025-03-27 08:49] LABS: Alanine Aminotransferase 11 U/L (0-31); Albumin Level 4.0 g/dL (3.5-5.0); Alkaline Phosphatase 82 U/L (39-117); Anion Gap 10 (12-20); Aspartate Amino Transferase 21 U/L (5-31); Blood Urea Nitrogen 12 mg/dL (9-16); Calcium 8.3 mg/dL (8.4-10.2); Carbon Dioxide 25 mmol/L (22-29); Chloride 110 mmol/L (96-108); Cholesterol 122 mg/dL (<200); Estimated Glomerular Filt Rate > 60; HDL Cholesterol 36 mg/dL (>40); Iron 68 mcg/dL (30-160); Percent Iron Saturation 31 % (15-50); Potassium 4.0 mmol/L (3.3-5.1); Sodium 141 mmol/L (135-145); Total Iron Binding Capacity 216 mcg/dL (228-428); Total Protein 6.8 g/dL (6.5-8.0); Triglycerides 35 mg/dL (<150); Unsaturated Iron Binding 148 ug/dL
[2025-03-27 09:08] LABS: Ferritin 70 ng/mL (10-250)
[2025-03-27 09:13] LABS: Folate 11.6 ng/mL (> or = 4.0); Vitamin B12 504 pg/mL (200-900)
== END 2025-03-27 07:33 | disposition home or self-care (01) ==
LOC: HO.LAB 07:32
PROVIDERS: PCP Internal Medicine; Visit Provider Physician Assistant Surgical
DX: Z98.84 Bariatric surgery status (principal)
CPT/HCPCS: 36415; 80053; 80061; 82306; 82607; 82728; 82746; 83036; 83525; 83540; 84425; 84443; 84590; 84630; 85025; 86140

== ENCOUNTER 2025-04-30 11:36 | Outpatient (REF) | payer OTHER, SELFPAY ==
--- NOTE | ~2025-04-30 | MM_ITS ---
EXAMINATION: MM SCREENING DIGITAL BREAST TOMOSYNTHESIS, BILATERAL CLINICAL INFORMATION: Screening. Asymptomatic. COMPARISON: Comparison made to multiple prior, most recent May 21, 2024, and most remote April 24, 2019. TECHNIQUE: Digital breast tomosynthesis is performed in both the craniocaudal and mediolateral oblique views along with computer-aided detection (CAD). Synthesized 2D images are generated from the tomosynthesis. FINDINGS: BREAST COMPOSITION: There are scattered areas of fibroglandular density (ACR BI-RADS breast composition Category b). BILATERAL BREASTS: Interval bilateral reduction mammoplasty. No significant masses, suspicious calcifications or other abnormalities are seen in either breast. MM/MM tomosynthesis screening BI IMPRESSION: BILATERAL BREASTS: Benign, no mammographic evidence of malignancy. Normal interval follow-up is recommended in 12 months. ASSESSMENT: BI-RADS 2 - Benign Findings RECOMMENDATION: Routine annual mammography screening. FOLLOW-UP: 1 year F/U This examination should not preclude the clinical evaluation of a suspicious palpable abnormality. This patient's information was entered into a reminder system with a target due date for their next mammogram. Electronically signed by: Manuel Deleon MD 05/05/2025 04:15 PM EDT
== END 2025-04-30 11:37 | disposition home or self-care (01) ==
LOC: HO.MAMMO 11:36
PROVIDERS: PCP Internal Medicine; Visit Provider Internal Medicine
DX: Z12.31 Encounter for screening mammogram for malignant neoplasm of breast (principal)
CPT/HCPCS: 77063; 77067

== ENCOUNTER → 2025-04-30 11:45 | Outpatient (BNV) | payer OTHER, SELFPAY | PROVIDERS: PCP Internal Medicine; Visit Provider Radiology Body Imaging | DX: Z12.31 Encounter for screening mammogram for malignant neoplasm of breast (principal) | CPT/HCPCS: 77063; 77067 ==